=== PATIENT | male | born 1945 | race Caucasian/White ===

== ENCOUNTER → 2016-12-19 | Outpatient (CLI) | payer OTHER ==
[~2016-12-19] MED LIST: ASPI81TA28 PO; DICL-201 PO; FLUT0.0529 NAE; FLUT110A INH; GLIP-199 PO; METF1000 PO; METH5TAB7 PO; OMEP20CA9 PO; TERA5CAP PO
[2016-12-19 10:16] LABS: BASO % 1.2 %; COMPLETE YES; EOS % 5.1 %; HEMATOCRIT 43.7 % (42-52); IG% 0.2 %; LYMPH % 23.3 %; LYMPH ABS # 1.87 K/uL (1.2-3.4); MEAN CELL VOLUME 90.7 fL (80-100); MEAN CORPUSCULAR HEMOGLOBIN 30.9 pg (25-34); MEAN CORPUSCULAR HGB CONC 34.1 g/dl (32-36); MEAN PLATELET VOLUME 11.1 fL (7.4-10.4); MONO % 9.6 %; NEUT % 60.6 %; PLATELET COUNT 238 K/uL (130-400); RED BLOOD COUNT 4.82 M/uL (4.7-6.1); WHITE BLOOD COUNT 8.03 K/uL (4.8-10.8)
[2016-12-19 10:37] LABS: ESTIMATED AVERAGE GLUCOSE 131 mg/dl; HA1C FLAG Normal (Normal)
[2016-12-19 11:23] LABS: ALT/SGPT 29 U/L (12-78); AST/SGOT 18 U/L (15-37); BLOOD UREA NITROGEN 26 mg/dl (7-18); BUN/CREATININE RATIO 15.4 (10-20); CALCIUM 8.7 mg/dl (8.5-10.1); CARBON DIOXIDE 27 mmol/L (21-32); CHLORIDE 103 mmol/L (98-107); CHOLESTEROL 137 mg/dl (0-200); GLUCOSE 96 mg/dl (70-99); MAGNESIUM 2.4 mg/dl (1.8-2.4); POTASSIUM 3.9 mmol/L (3.5-5.1); SODIUM 140 mmol/L (136-145); TRIGLYCERIDES 83 mg/dl (0-150); VERY LOW DENSITY LIPOPROT CALC 17 mg/dl
[2016-12-19 11:27] LABS: CHOLESTEROL/HDL RATIO 3.5; HDL CHOLESTEROL 39 mg/dl; LDL CHOLESTEROL CALCULATED 81 mg/dl
== END | disposition home or self-care (01) ==
LOC: C.LAB1850 09:22
PROVIDERS: ATTEND Internal Medicine
DX: E11.9 Type 2 diabetes mellitus without complications (principal)

== ENCOUNTER → 2016-12-27 | Outpatient (CLI) | payer OTHER ==
[2016-12-27 09:38] LABS: BLOOD UREA NITROGEN 26 mg/dl (7-18); BUN/CREATININE RATIO 18.2 (10-20); CARBON DIOXIDE 28 mmol/L (21-32); CHLORIDE 103 mmol/L (98-107); GLUCOSE 128 mg/dl (70-99); POTASSIUM 3.8 mmol/L (3.5-5.1); SODIUM 141 mmol/L (136-145)
[2016-12-27 10:19] LABS: RATIO 187.5 mcg/mg (0-30.0)
== END | disposition home or self-care (01) ==
LOC: C.LAB1850 08:30
PROVIDERS: ATTEND Internal Medicine
DX: N52.9 Male erectile dysfunction, unspecified (principal)

== ENCOUNTER → 2017-05-30 | Outpatient (CLI) | payer OTHER ==
[2017-05-30 13:19] LABS: ESTIMATED AVERAGE GLUCOSE 134 mg/dl; HA1C FLAG Normal (Normal)
--- NOTE | 2017-06-06 12:07 | CODING QUERY MEDICAL NECESSITY ---
SUPPORTING DIAGNOSIS NEEDED Dr. Vivas, A supporting diagnosis is required for the test/procedure performed on this patient in order for us to be reimbursed by the patient's insurance. Please provide a supporting diagnosis for the following test/procedure listed below next to the test name along with your signature. *If there is no additional diagnosis for this patient that would support the following test/procedure please document that below next to the test/procedure. Test(s)/Procedure(s) that require a supporting diagnosis: * [id number] GLYCATED HEMOGLOBIN DIAGNOSIS: DATE OF SERVICE: 05/30/17 Provider Signature: Date: Thank you Jey Malik [facility] Information Management Once completed, please kindly fax back to [phone] For questions please call [phone]
== END | disposition home or self-care (01) ==
LOC: C.LABPBG 09:09
PROVIDERS: ATTEND Internal Medicine
DX: E78.5 Hyperlipidemia, unspecified (principal); E11.9 Type 2 diabetes mellitus without complications

== ENCOUNTER → 2017-09-04 | Outpatient (CLI) | payer OTHER ==
[2017-09-04 13:19] LABS: BASO % 1.5 %; BASO ABS # 0.11 K/uL (0-0.2); COMPLETE YES; EOS % 5.2 %; HEMATOCRIT 44.1 % (42-52); IG% 0.1 %; LYMPH % 24.6 %; LYMPH ABS # 1.78 K/uL (1.2-3.4); MEAN CELL VOLUME 91.7 fL (80-100); MEAN CORPUSCULAR HEMOGLOBIN 30.6 pg (25-34); MEAN CORPUSCULAR HGB CONC 33.3 g/dl (32-36); MEAN PLATELET VOLUME 11.2 fL (7.4-10.4); MONO % 9.8 %; NEUT % 58.8 %; PLATELET COUNT 253 K/uL (130-400); RED BLOOD COUNT 4.81 M/uL (4.7-6.1); WHITE BLOOD COUNT 7.25 K/uL (4.8-10.8)
[2017-09-04 13:43] LABS: ESTIMATED AVERAGE GLUCOSE 131 mg/dl; HA1C FLAG Normal (Normal)
[2017-09-04 14:56] LABS: ALT/SGPT 30 U/L (12-78); AST/SGOT 20 U/L (15-37); BLOOD UREA NITROGEN 24 mg/dl (7-18); BUN/CREATININE RATIO 17.6 (10-20); CALCIUM 8.7 mg/dl (8.5-10.1); CARBON DIOXIDE 29 mmol/L (21-32); CHLORIDE 104 mmol/L (98-107); CHOLESTEROL 130 mg/dl (0-200); CREATININE 1.35 mg/dl (0.60-1.40); GLUCOSE 90 mg/dl (70-99); POTASSIUM 3.6 mmol/L (3.5-5.1); SODIUM 139 mmol/L (136-145); TRIGLYCERIDES 76 mg/dl (0-150); VERY LOW DENSITY LIPOPROT CALC 15 mg/dl
[2017-09-04 16:43] LABS: HDL CHOLESTEROL 95 mg/dl; LDL CHOLESTEROL CALCULATED 80 mg/dl
[2017-09-04 16:44] LABS: CHOLESTEROL/HDL RATIO 3.7
[2017-09-04 17:58] LABS: CREATININE RANDOM URINE 64.8 mg/dl
[2017-09-04 18:04] LABS: URINE APPEARANCE CLEAR (CLEAR); URINE BILIRUBIN NEG (NEG); URINE COLOR YELLOW; URINE EPITHELIAL CELL AUTO 0-5 /lpf (0-5); URINE NITRITE NEG (NEG); URINE PH 5.5 (4.5-7.5); URINE SPECIFIC GRAVITY 1.014 (1.000-1.030); UROBILINOGEN NEG (NEG)
[2017-09-04 18:06] LABS: MANUAL MICROSCOPIC REQUIRED? NO; REVIEW REQ? NO
[2017-09-04 18:08] LABS: RATIO 384.3 mcg/mg (0-30.0)
== END | disposition home or self-care (01) ==
LOC: C.LABPBG 09:11
PROVIDERS: ATTEND Internal Medicine
DX: E11.9 Type 2 diabetes mellitus without complications (principal)

== ENCOUNTER → 2017-12-14 | Outpatient (CLI) | payer OTHER ==
[2017-12-14 10:43] LABS: BLOOD UREA NITROGEN 29 mg/dl (7-18); CALCIUM 8.8 mg/dl (8.5-10.1); CARBON DIOXIDE 27 mmol/L (21-32); CREATININE 1.68 mg/dl (0.60-1.40); GLUCOSE 130 mg/dl (70-99); POTASSIUM 4.1 mmol/L (3.5-5.1); SODIUM 137 mmol/L (136-145)
[2017-12-14 11:32] LABS: HEMOGLOBIN A1C 6.2 % (4.5-5.6)
== END | disposition home or self-care (01) ==
LOC: C.LAB1850 09:40
PROVIDERS: ATTEND Internal Medicine
DX: I10 Essential (primary) hypertension (principal)

== ENCOUNTER → 2018-03-26 | Outpatient (CLI) | payer OTHER ==
[2018-03-26 13:05] LABS: BASO % 1.1 %; BASO ABS # 0.09 K/uL (0-0.2); EOS % 6.4 %; HEMATOCRIT 40.2 % (42-52); HEMOGLOBIN 13.4 g/dL (14.0-18.0); IG# 0.01 K/uL (0.00-0.02); LYMPH ABS # 1.73 K/uL (1.2-3.4); MEAN CELL VOLUME 93.3 fL (80-100); MEAN CORPUSCULAR HEMOGLOBIN 31.1 pg (25-34); MEAN CORPUSCULAR HGB CONC 33.3 g/dl (32-36); MEAN PLATELET VOLUME 10.9 fL (7.4-10.4); MONO % 7.9 %; MONO ABS # 0.62 K/uL (0.11-0.59); NEUT % 62.5 %; NEUT ABS # 4.91 K/uL (1.4-6.5); PLATELET COUNT 251 K/uL (130-400); RED CELL DISTRIBUTION WIDTH CV 14.1 % (11.5-14.5); RED CELL DISTRIBUTION WIDTH SD 48.8 fL (36.4-46.3); WHITE BLOOD COUNT 7.86 K/uL (4.8-10.8)
[2018-03-26 13:29] LABS: HEMOGLOBIN A1C 5.9 % (4.5-5.6)
[2018-03-26 13:53] LABS: BLOOD UREA NITROGEN 29 mg/dl (7-18); CALCIUM 8.7 mg/dl (8.5-10.1); CARBON DIOXIDE 30 mmol/L (21-32); CHOLESTEROL 126 mg/dl (0-200); CREATININE 1.36 mg/dl (0.60-1.40); GLUCOSE 81 mg/dl (70-99); LDL CHOLESTEROL CALCULATED 75 mg/dl; POTASSIUM 4.1 mmol/L (3.5-5.1); SODIUM 139 mmol/L (136-145)
[2018-03-26 15:44] LABS: CREATININE RANDOM URINE 28.5 mg/dl
== END | disposition home or self-care (01) ==
LOC: C.LABPBG 08:36
PROVIDERS: ATTEND Internal Medicine
DX: E11.9 Type 2 diabetes mellitus without complications (principal)

== ENCOUNTER 2020-08-03 12:33 | Inpatient (IN) ==
[~2020-08-03 12:33] MED LIST changes: -ASPI81TA28 PO; -DICL-201 PO; -FLUT0.0529 NAE; -FLUT110A INH; -GLIP-199 PO; +HEPARIN (PORCINE) 1000 UNIT/ML 10 ML (CATH LAB USE ONLY) ONE; -METF1000 PO; -METH5TAB7 PO; +MIDAZOLAM HCL 1 MG/ML 2ML VIAL ONE; +NiCARDipine HCL INJ 2.5 MG/ML 10 ML AMP ONE; -OMEP20CA9 PO; -TERA5CAP PO; +fentaNYL citrate 100 MCG/2 ML VIAL ONE
[2020-08-03] MEDS ORDERED: NITROGLYCERIN/D5W 100MCG/ML 20ML SYR ONE (12:36)
--- NOTE | 2020-08-03 12:44 | Emergency Department Note ---
Impression & Plan ST elevation AL (STEMI), Chest pain, Abnormal EKG ED Provider Note NAME: STEPHANIE SCHULZ AGE: 74 SEX: M : 1945 ARRIVES VIA: Ambulance INFORMANT: Patient ED PROVIDER(S): Ryland Sheriff DO CHIEF COMPLAINT: Chest pain HPI: Patient is a 74-year-old male who presents the ER for precordial chest pain. He has been getting this off and on for the past 2 to 3 days. He notes it has been gradually getting worse. He is uncertain if it has any association but questions if it is related to drinking. He notes laying down does make him feel better and resting. No vomiting or nausea. No arm or jaw pain. He notes that right now he has a subtle pain left side of his chest as a pressure. He was seen by cardiology earlier today and was referred over as a heart alert. Patient received aspirin and 2 nitro prior to arrival. No previous MIs. ROS: See above HPI for pertinent positives & negatives. A total of 10 systems reviewed and were otherwise negative. PAST MEDICAL HISTORY:See Below PAST SURGICAL HISTORY:See Below FAMILY HISTORY:See Below SOCIAL HISTORY:See Below HOME MEDICATIONS:See Below ALLERGIES:See Below VITALS:See Below PHYSICAL EXAMINATION: GENERAL: Sitting up in bed, alert, well appearing, well nourished, no distress, non-toxic EYE EXAM: normal conjunctiva. OROPHARYNX: no exudate, no erythema, lips, buccal mucosa, and tongue normal and mucous membranes are moist NECK: supple, no nuchal rigidity, no adenopathy, non-tender LUNGS: Clear to auscultation. Normal chest wall mechanics HEART: no murmurs, S1 normal and S2 normal ABDOMEN: abdomen soft, non-tender, normo-active bowel sounds, no masses, no rebound or guarding. BACK: Back is symmetrical on inspection and there is no deformity, no midline tenderness, no CVA tenderness. SKIN: no rashes and no bruising UPPER EXTREMITIES: upper extremities are grossly normal. LOWER EXTREMITIES: No pitting edema. Calves are equal bilateral NEURO EXAM: Normal sensorium, cranial nerves II-XII grossly intact, normal speech, no gross weakness of arms, no gross weakness of legs. MEDICAL DECISION MAKING: Patient is a 74-year-old male who presents the ER for chest pain. He was referred over by Dr. Costa. EKG was reviewed by myself. I took medical command call. EKG showed a STEMI. STEMI alert was called. Patient was seen in the trauma bay. IV was established blood work was obtained. Labs showed no significant leukocytosis or anemia. INR was unremarkable. BMP was unremarkable with exception of slightly elevated creatinine at 1.46. Troponin was elevated at 3.1. Lipase was unremarkable. Dr. Rowan was at bedside. He requested holding on the chest x-ray and taking him emergently to the Nuclear Physicist. Patient was updated and taken emergently to the Nuclear Physicist for intervention. Patient had received aspirin and nitro prior to arrival. Triage Nursing notes reviewed. Prior medical records reviewed Vital Signs: reviewed and remarkable for no significant abnormalities Differential diagnosis: Differential diagnoses includes but is not limited to acute coronary syndrome, myocardial infarction, pericarditis, pulmonary embolus, aortic dissection, pneumonia, pneumothorax, musculoskeletal, shingles, esophageal. ER treatment provided: See below Diagnostics interpreted by me: ECG: Sinus rhythm rate 83 Normal axis Q waves V1 through V4 with ST segment elevations in V2 to V5 Acute STEMI ST depressions in the inferior leads ST elevations in the high lateral leads Cardiac Monitoring: An order was placed for continuous cardiac monitoring. The monitor shows a rate of 74 with sinus rhythm. Laboratory studies: As stated above and show below. Imaging studies: none Consultation(s): Discussed with Dr. Rowan who presented to bedside and took him to the Nuclear Physicist. ED COURSE: Procedures: none Critical Care: I have personally spent 31 minutes of critical care time in the direct management of this patient. This includes bedside care, interpretation of diagnostic studies, and testing, discussion with consultants, patient, and family members, and other required patient management activities. This 31 minutes is in excess of all separately billable procedures. Past Med/Surg History Medical History (Updated 08/03/20 @ 19:12 by Ryland Sheriff DO) Anemia HLD (hyperlipidemia) Olecranon bursitis MAURICIO on CPAP Social History Smoking Status: Former smoker Hx Alcohol Use: Yes Alcohol type: beer Hx Substance Use: No Preferred Language: Albanian Communication Ability: Effective Parts And Service Manager Required: No Beliefs That Will Affect Care: None Current Living Situation: Spouse Other Information That Helps Us Care for You: No Feels Safe at Home: Yes Safety Concerns: Feels Safe At This Time Assistive Devices: CPAP, Glasses and Hearing Aid - Right Allergies Allergies Allergy/AdvReac Type Severity Reaction Status Date / Time No Known Allergies Allergy NONE Verified 08/03/20 11:13 Home Meds Home Medications Medication Instructions Recorded Confirmed omeprazole 20 mg capsule,delayed 20 mg PO DAILY 08/03/20 08/03/20 release Previous Rx's Medication Instructions Recorded sildenafil (pulm.hypertension) 20 20 mg PO Q4H #20 tab MDD 5 tablets 06/03/19 mg tablet fluticasone propionate 110 2 puffs INHALATION DAILY #3 gm 11/27/19 mcg/actuation HFA aerosol inhaler fluticasone propionate 50 2 sprays INTRANASAL DAILY #3 gm 11/27/19 mcg/actuation nasal spray,suspension hydrochlorothiazide 25 mg tablet 25 mg PO DAILY #90 tab 11/27/19 losartan 50 mg tablet 50 mg PO DAILY #90 tab 11/27/19 terazosin 5 mg capsule 5 mg PO DAILY #90 cap 01/16/20 diclofenac sodium 75 mg 75 mg PO BID #180 tab 04/06/20 tablet,delayed release glipizide 10 mg tablet, extended 10 mg PO BID #180 tab 04/06/20 release 24 hr Results & Data (ED) Vital Signs Vital Signs - 24 hr 08/03/20 12:35 Temperature 36.6 C Temperature Source Oral Pulse Rate 81 Respiratory Rate 20 Blood Pressure 142/82 H Blood Pressure Mean 102 Pulse Oximetry 97 Oxygen Delivery Method Room Air Sepsis Recent Fever Within 48 Hours No Sepsis New/Unexplained Change in Mental Status N/A Sepsis Action Taken by Nursing No Action Required Laboratory Data Result diagrams: 08/03/20 12:34 08/03/20 12:34 Lab Results 08/03/20 08/03/20 08/03/20 Range/Units 12:34 12:34 12:34 WBC 10.25 (4.8-10.8) K/uL RBC 4.60 L (4.7-6.1) M/uL Hgb 14.2 (14.0-18.0) g/dL POC Hgb (14.0-18.0) g/dl Hct 42.4 (42-52) % POC Hct (42-52) % MCV 92.2 (80-100) fL MCH 30.9 (25-34) pg MCHC 33.5 (32-36) g/dL RDW Std Deviation 46.0 (36.4-46.3) fL RDW Coeff of Chai 13.6 (11.5-14.5) % Plt Count 228 (130-400) K/uL MPV 11.2 H (7.4-10.4) fL Immature Gran % (Auto) 0.1 % Neut % (Auto) 80.6 % Lymph % (Auto) 12.4 % Harlan % (Auto) 5.8 % Eos % (Auto) 0.7 % Baso % (Auto) 0.4 % Neut # (Auto) 8.27 H (1.4-6.5) K/uL Lymph # (Auto) 1.27 (1.2-3.4) K/uL Harlan # (Auto) 0.59 (0.11-0.59) K/uL Eos # (Auto) 0.07 (0-0.5) K/uL Baso # (Auto) 0.04 (0-0.2) K/uL Immature Gran # (Auto) 0.01 (0.00-0.02) K/uL PT 11.1 (9.0-12.0) Seconds INR 1.1 (0.9-1.1) APTT 26.6 (21.0-31.0) Seconds PTT Ratio 1.0 Activ Coag Time Kaolin (94-140) SECONDS POC Sodium (135-144) mmol/L Sodium 138 (136-145) mmol/L POC Potassium (3.3-5.0) mmol/L Potassium 3.8 (3.5-5.1) mmol/L POC Chloride (101-112) mmol/L Chloride 107 (98-107) mmol/L Carbon Dioxide 21 (21-32) mmol/L POC Total CO2 (24-31) mmol/L Anion Gap 11.0 (3-11) POC Anion Gap (16-25) mmol/L POC BUN (7-18) mg/dl BUN 27 H (7-18) mg/dl Creatinine 1.46 H (0.6-1.4) mg/dl POC Creatinine (0.6-1.3) mg/dl Est Cr Clr Drug Dosing 58.4 ml/min Est GFR ( Amer) 53.4 Est GFR (Non-Af Amer) 46.1 BUN/Creatinine Ratio 18.3 (10-20) Glucose 147 H (70-99) mg/dl POC Glucose (other) (70-99) mg/dl Calcium 9.5 (8.5-10.1) mg/dl POC Ioniz Calcium Yomaira (1.12-1.32) mmol/l Magnesium 2.2 (1.8-2.4) mg/dl Total Bilirubin 0.7 (0.2-1) mg/dl AST 49 H (15-37) U/L ALT 30 (12-78) U/L Alkaline Phosphatase 78 (45-117) U/L Total Creatine Kinase 342 H (39-308) U/L CK-MB (CK-2) 25.9 H (0.5-3.6) ng/ml CK/CKMB % Calc 7.6 H (0-3.0) Troponin I 3.120 H* (0-0.045) ng/ml Total Protein 7.4 (6.4-8.2) gm/dl Albumin 3.6 (3.4-5.0) gm/dl Globulin 3.8 (2.5-4.0) gm/dl Albumin/Globulin Ratio 0.9 (0.9-2) Lipase 89 (73-393) U/L TSH 1.510 (0.300-4.500) uIu/ml 08/03/20 08/03/20 08/03/20 Range/Units 12:44 13:11 13:29 WBC (4.8-10.8) K/uL RBC (4.7-6.1) M/uL Hgb (14.0-18.0) g/dL POC Hgb 15.0 (14.0-18.0) g/dl Hct (42-52) % POC Hct 44 (42-52) % MCV (80-100) fL MCH (25-34) pg MCHC (32-36) g/dL RDW Std Deviation (36.4-46.3) fL RDW Coeff of Chai (11.5-14.5) % Plt Count (130-400) K/uL MPV (7.4-10.4) fL Immature Gran % (Auto) % Neut % (Auto) % Lymph % (Auto) % Harlan % (Auto) % Eos % (Auto) % Baso % (Auto) % Neut # (Auto) (1.4-6.5) K/uL Lymph # (Auto) (1.2-3.4) K/uL Harlan # (Auto) (0.11-0.59) K/uL Eos # (Auto) (0-0.5) K/uL Baso # (Auto) (0-0.2) K/uL Immature Gran # (Auto) (0.00-0.02) K/uL PT (9.0-12.0) Seconds INR (0.9-1.1) APTT (21.0-31.0) Seconds PTT Ratio Activ Coag Time Kaolin 208 H 230 H (94-140) SECONDS POC Sodium 139 (135-144) mmol/L Sodium (136-145) mmol/L POC Potassium 3.9 (3.3-5.0) mmol/L Potassium (3.5-5.1) mmol/L POC Chloride 105 (101-112) mmol/L Chloride (98-107) mmol/L Carbon Dioxide (21-32) mmol/L POC Total CO2 21 L (24-31) mmol/L Anion Gap (3-11) POC Anion Gap 18.0 (16-25) mmol/L POC BUN 26 H (7-18) mg/dl BUN (7-18) mg/dl Creatinine (0.6-1.4) mg/dl POC Creatinine 1.4 H (0.6-1.3) mg/dl Est Cr Clr Drug Dosing ml/min Est GFR ( Amer) Est GFR (Non-Af Amer) BUN/Creatinine Ratio (10-20) Glucose (70-99) mg/dl POC Glucose (other) 151 H (70-99) mg/dl Calcium (8.5-10.1) mg/dl POC Ioniz Calcium Yomaira 1.12 (1.12-1.32) mmol/l Magnesium (1.8-2.4) mg/dl Total Bilirubin (0.2-1) mg/dl AST (15-37) U/L ALT (12-78) U/L Alkaline Phosphatase (45-117) U/L Total Creatine Kinase (39-308) U/L CK-MB (CK-2) (0.5-3.6) ng/ml CK/CKMB % Calc (0-3.0) Troponin I (0-0.045) ng/ml Total Protein (6.4-8.2) gm/dl Albumin (3.4-5.0) gm/dl Globulin (2.5-4.0) gm/dl Albumin/Globulin Ratio (0.9-2) Lipase (73-393) U/L TSH (0.300-4.500) uIu/ml 08/03/20 Range/Units 14:08 WBC (4.8-10.8) K/uL RBC (4.7-6.1) M/uL Hgb (14.0-18.0) g/dL POC Hgb (14.0-18.0) g/dl Hct (42-52) % POC Hct (42-52) % MCV (80-100) fL MCH (25-34) pg MCHC (32-36) g/dL RDW Std Deviation (36.4-46.3) fL RDW Coeff of Chai (11.5-14.5) % Plt Count (130-400) K/uL MPV (7.4-10.4) fL Immature Gran % (Auto) % Neut % (Auto) % Lymph % (Auto) % Harlan % (Auto) % Eos % (Auto) % Baso % (Auto) % Neut # (Auto) (1.4-6.5) K/uL Lymph # (Auto) (1.2-3.4) K/uL Harlan # (Auto) (0.11-0.59) K/uL Eos # (Auto) (0-0.5) K/uL Baso # (Auto) (0-0.2) K/uL Immature Gran # (Auto) (0.00-0.02) K/uL PT (9.0-12.0) Seconds INR (0.9-1.1) APTT (21.0-31.0) Seconds PTT Ratio Activ Coag Time Kaolin 268 H (94-140) SECONDS POC Sodium (135-144) mmol/L Sodium (136-145) mmol/L POC Potassium (3.3-5.0) mmol/L Potassium (3.5-5.1) mmol/L POC Chloride (101-112) mmol/L Chloride (98-107) mmol/L Carbon Dioxide (21-32) mmol/L POC Total CO2 (24-31) mmol/L Anion Gap (3-11) POC Anion Gap (16-25) mmol/L POC BUN (7-18) mg/dl BUN (7-18) mg/dl Creatinine (0.6-1.4) mg/dl POC Creatinine (0.6-1.3) mg/dl Est Cr Clr Drug Dosing ml/min Est GFR ( Amer) Est GFR (Non-Af Amer) BUN/Creatinine Ratio (10-20) Glucose (70-99) mg/dl POC Glucose (other) (70-99) mg/dl Calcium (8.5-10.1) mg/dl POC Ioniz Calcium Yomaira (1.12-1.32) mmol/l Magnesium (1.8-2.4) mg/dl Total Bilirubin (0.2-1) mg/dl AST (15-37) U/L ALT (12-78) U/L Alkaline Phosphatase (45-117) U/L Total Creatine Kinase (39-308) U/L CK-MB (CK-2) (0.5-3.6) ng/ml CK/CKMB % Calc (0-3.0) Troponin I (0-0.045) ng/ml Total Protein (6.4-8.2) gm/dl Albumin (3.4-5.0) gm/dl Globulin (2.5-4.0) gm/dl Albumin/Globulin Ratio (0.9-2) Lipase (73-393) U/L TSH (0.300-4.500) uIu/ml Administered Medications Sodium Chloride (Nss 1000ml) 1,000 mls @ 100 mls/hr IV .Q10H [facility] Stop: 09/02/20 14:44 Last Infusion: 08/03/20 18:58 Dose: 100 mls/hr Documented by: [id number] Admin: 08/03/20 16:01 Dose: 100 mls/hr Documented by: [id number] Admin: 08/03/20 15:59 Dose: Not Given Documented by: [id number] Eptifibatide (Integrilin) 75 mg in 100 mls @ 10.16 mls/hr IV .[id number] SARAH; Protocol Stop: 08/03/20 20:30 Last Infusion: 08/03/20 18:58 Dose: 1 mcg/kg/min, 10.2 mls/hr Documented by: [id number] Cosigned by: [id number] Admin: 08/03/20 16:03 Dose: 1 mcg/kg/min, 10.2 mls/hr Documented by: [id number] Cosigned by: [id number] Insulin Aspart (Insulin Aspart 100 Units/Ml 3 Ml Pen) 0 units SC ACHS SARAH Stop: 09/02/20 16:29 Last Admin: 08/03/20 16:28 Dose: 300 units Documented by: [id number] Cosigned by: [id number] Discontinued Medications Eptifibatide (Eptifibatide 2 Mg/Ml 10 Ml Vial (Nuclear Physicist Use Only)) Confirm Administered Dose 40 mg IV .STK-MED ONE Stop: 08/03/20 13:45 Last Admin: 08/03/20 14:15 Dose: 40 mg Documented by: [id number] Eptifibatide (Eptifibatide 0.75 Mg/Ml 75mg Vial (Nuclear Physicist Use Only)) Confirm Administered Dose 75 mg .ROUTE .STK-MED ONE Stop: 08/03/20 13:45 Last Admin: 08/03/20 14:15 Dose: 75 mg Documented by: [id number] Eptifibatide (Eptifibatide 2 Mg/Ml 10 Ml Vial (Nuclear Physicist Use Only)) Confirm Administered Dose 20 mg IV .STK-MED ONE Stop: 08/03/20 13:48 Last Admin: 08/03/20 14:16 Dose: Not Given Documented by: [id number] Fentanyl Citrate (Fentanyl Citrate 100 Mcg/2 Ml Vial) Confirm Administered Dose 100 mcg .ROUTE .STK-MED ONE Stop: 08/03/20 12:34 Last Admin: 08/03/20 14:14 Dose: 100 mcg Documented by: [id number] Fentanyl Citrate (Fentanyl Citrate 100 Mcg/2 Ml Vial) Confirm Administered Dose 100 mcg .ROUTE .STK-MED ONE Stop: 08/03/20 13:18 Last Admin: 08/03/20 14:16 Dose: 50 mcg Documented by: [id number] Heparin Sodium (Porcine) (Heparin (Porcine) 1000 Unit/Ml 10 Ml (Nuclear Physicist Use Only)) Confirm Administered Dose 10,000 units .ROUTE .STK-MED ONE Stop: 08/03/20 12:34 Last Admin: 08/03/20 14:16 Dose: 7,000 units Documented by: [id number] Heparin Sodium (Porcine) (Heparin (Porcine) 1000 Unit/Ml 10 Ml (Nuclear Physicist Use Only)) Confirm Administered Dose 10,000 units .ROUTE .STK-MED ONE Stop: 08/03/20 13:16 Last Admin: 08/03/20 14:14 Dose: 10,000 units Documented by: [id number] Heparin Sodium/Sodium Chloride (Heparin In Nss Infusion 1000 Unit/500 Ml (2 U/Ml) Bag) Confirm Administered Dose 5,000 units IV .STK-MED ONE Stop: 08/03/20 12:34 Last Admin: 08/03/20 14:12 Dose: 5,000 units Documented by: [id number] Midazolam HCl (Midazolam Hcl 1 Mg/Ml 2ml Vial) Confirm Administered Dose 2 mg .ROUTE .STK-MED ONE Stop: 08/03/20 12:34 Last Admin: 08/03/20 14:14 Dose: 2 mg Documented by: [id number] Midazolam HCl (Midazolam Hcl 1 Mg/Ml 2ml Vial) Confirm Administered Dose 2 mg .ROUTE .STK-MED ONE Stop: 08/03/20 13:19 Last Admin: 08/03/20 14:15 Dose: 2 mg Documented by: [id number] Midazolam HCl (Midazolam Hcl 1 Mg/Ml 2ml Vial) Confirm Administered Dose 2 mg .ROUTE .STK-MED ONE Stop: 08/03/20 13:41 Last Admin: 08/03/20 14:16 Dose: 1 mg Documented by: [id number] Nicardipine HCl (Nicardipine Hcl Inj 2.5 Mg/Ml 10 Ml Amp) Confirm Administered Dose 25 mg .ROUTE .STK-MED ONE Stop: 08/03/20 12:34 Last Admin: 08/03/20 14:11 Dose: 25 mg Documented by: [id number] Nitroglycerin/Dextrose (Nitroglycerin/D5w 100mcg/Ml 20ml Syr) Confirm Administered Dose 2,000 mcg .ROUTE .STK-MED ONE Stop: 08/03/20 12:37 Last Admin: 08/03/20 14:12 Dose: 2,000 mcg Documented by: [id number] Ticagrelor (Ticagrelor 90 Mg Tab) Confirm Administered Dose 180 mg PO .STK-MED ONE Stop: 08/03/20 14:31 Last Admin: 08/03/20 14:38 Dose: 180 mg Documented by: [id number] Discharge Plan Visit Data Chief Complaint: Heart Alert Stated Complaint: HEART ALERT ED Provider: Ryland Sheriff Discharge Problem: ST elevation AL (STEMI), Chest pain, Abnormal EKG Discharge Instructions Interventions: ED Discharge Assessment Last Done: 08/03/20 12:47 Discharge Problem: ST elevation AL (STEMI) Qualifiers: Involved coronary artery: unspecified coronary artery Qualified Code(s): I21.3 - ST elevation (STEMI) myocardial infarction of unspecified site Chest pain Qualifiers: Chest pain type: unspecified Qualified Code(s): R07.9 - Chest pain, unspecified
--- NOTE | 2020-08-03 12:45 | Pre Anesthesia Assessment ---
Date of Service August 03, 2020 Pre Sedation Assessment Cardiovascular RRR, no murmur, no edema Respiratory normal respiratory effort, lungs clear to auscultation Pre-Sedation Airway Assessment Smoking Status: Unknown if ever smoked Hx Sleep Apnea: No Hx Difficult Intubation: No Short, Thick Neck: No Thyromental Distance: > or= 3.5 Finger Breadths Oral Cavity: + Dental Abnormalities Mallampati Class: III ASA: ASA3 Procedure Planning Contraindications for Sedation: none Current Medications Reviewed: Yes Notes The planned sedation has been discussed with the patient. Informed Consent was obtained. I have identified the patient, determined the appropriateness of sedation and have assessed the patient immediately prior to the procedure. All medicine(s) and interventions are by my order.
[2020-08-03 12:52] LABS: Basophils # (auto) 0.04 K/uL (0-0.2); Basophils % (auto) 0.4 %; Eosinophils # (auto) 0.07 K/uL (0-0.5); Eosinophils % (auto) 0.7 %; Hematocrit (blood only) 42.4 % (42-52); Hemoglobin 14.2 g/dL (14.0-18.0); Immature Granulocytes # (auto) 0.01 K/uL (0.00-0.02); Immature Granulocytes % (auto) 0.1 %; Lymphocytes # (auto) 1.27 K/uL (1.2-3.4); Lymphocytes % (auto) 12.4 %; Mean Corpuscular Hemoglobin 30.9 pg (25-34); Mean Corpuscular Hgb Conc 33.5 g/dL (32-36); Mean Corpuscular Volume 92.2 fL (80-100); Mean Platelet Volume 11.2 fL (7.4-10.4); Monocytes # (auto) 0.59 K/uL (0.11-0.59); Monocytes % (auto) 5.8 %; Neutrophils # (auto) 8.27 K/uL (1.4-6.5); Neutrophils % (auto) 80.6 %; Platelet Count 228 K/uL (130-400); RDW Coefficient of Variation 13.6 % (11.5-14.5); White Blood Count 10.25 K/uL (4.8-10.8)
--- NOTE | 2020-08-03 12:52 | Cardiology Consultation ---
Date of Consultation August 03, 2020 Assessment & Plan (1) Acute NE: Presentation consistent with anterior STEMI and recommend proceeding with emergent cardiac catheterization and likely primary PCI. No apparent contraindications to procedure. Discussed risks, benefits, alternatives of procedure with patient and they are willing to proceed. Further recommendations pending findings of coronary angiography. History of Present Illness History of Present Illness 74-year-old man here with acute chest pain and ECG concerning for acute NE. Patient seen emergently in the ED after heart alert activated in route from [facility] office. No prior cardiac history. Cardiac risk factors include hypertension, dyslipidemia, morbid obesity, dxn-[id number] type 2 diabetes. Other medical issues include chronic renal insufficiency stage III, obstructive sleep apnea, osteoarthritis. Has been having intermittent chest pain since yesterday which initially attributed to GERD. Due to pain presented to his primary care physician, Dr. Vivas earlier today. ECG in office notable for 2 to [address] elevations. Denies similar symptoms in the past. Associated with mild nausea, diaphoresis. Given sublingual nitroglycerin, aspirin in route Chest pain at time of arrival 02/13. Hemodynamically stable. EKG showed anterior ST elevations. Allergies Allergy/AdvReac Type Severity Reaction Status Date / Time No Known Allergies Allergy NONE Verified 08/03/20 11:13 Home Medications Home Medications Medication Instructions Recorded Confirmed Type sildenafil (pulm.hypertension) 20 20 mg PO Q4H #20 tab MDD 5 tablets 06/03/19 12/19/19 Rx mg tablet fluticasone propionate 110 2 puffs INHALATION DAILY #3 gm 11/27/19 07/03/20 Rx mcg/actuation HFA aerosol inhaler fluticasone propionate 50 2 sprays INTRANASAL DAILY #3 gm 11/27/19 07/03/20 Rx mcg/actuation nasal spray,suspension hydrochlorothiazide 25 mg tablet 25 mg PO DAILY #90 tab 11/27/19 07/03/20 Rx losartan 50 mg tablet 50 mg PO DAILY #90 tab 11/27/19 07/03/20 Rx terazosin 5 mg capsule 5 mg PO DAILY #90 cap 01/16/20 07/03/20 Rx diclofenac sodium 75 mg 75 mg PO BID #180 tab 04/06/20 07/03/20 Rx tablet,delayed release glipizide 10 mg tablet, extended 10 mg PO BID #180 tab 04/06/20 07/03/20 Rx release 24 hr omeprazole 20 mg capsule,delayed 20 mg PO DAILY 08/03/20 08/03/20 History release Patient History Medical History (Updated 08/03/20 @ 14:55 by Aureliano Rowan MD) Anemia Olecranon bursitis Social History Smoking Status: Unknown if ever smoked Feels Safe at Home: Yes Review of Systems Review of Systems: Not obtained in the setting of emergent situation Physical Exam Physical Exam: General: Comfortable, no acute distress HEENT: Sclerae anicteric, mucous membranes moist Lungs: Clear to auscultation bilaterally, no rhonchi or wheezes Cardiac: Regular rate and rhythm, no murmurs. No JVD. Abdomen: Soft, nontender, nondistended, positive bowel sounds. Extremities: Warm, well perfused, no edema. 2+ radial pulses Skin: No rashes or lesions. Neuro: Nonfocal Psych: Alert orient x3, normal affect and mood PG Care Time/CCT Total # of Minutes Spent Total Time Spent with Patient: Total time spent is greater than 50% in coordination of care (as documented) at patient's floor/unit and/or counseling patient: Coding Level of Care Code 47372 Initial Inpt Care Lvl 3 Diagnoses Acute NE I21.9
[2020-08-03 12:58] LABS: iSTAT Creatinine 1.4 mg/dl (0.6-1.3); iSTAT Ionized Calcium 1.12 mmol/l (1.12-1.32); iSTAT Potassium 3.9 mmol/L (3.3-5.0)
[2020-08-03 13:03] LABS: INR 1.1 (0.9-1.1); Partial Thromboplastin Time 26.6 Seconds (21.0-31.0); Prothrombin Time 11.1 Seconds (9.0-12.0)
[2020-08-03 13:09] LABS: Albumin Level 3.6 gm/dl (3.4-5.0); BUN Creatinine Ratio 18.3 (10-20); Calcium 9.5 mg/dl (8.5-10.1); Creatinine Clr Calc Pharmacy 58.4 ml/min; Est GFR (African American) 53.4; Est GFR (Non-African American) 46.1; Magnesium 2.2 mg/dl (1.8-2.4); Potassium 3.8 mmol/L (3.5-5.1)
[2020-08-03] MEDS ORDERED: HEPARIN (PORCINE) 1000 UNIT/ML 10 ML (CATH LAB USE ONLY) ONE (13:15)
[2020-08-03] MEDS ORDERED: fentaNYL citrate 100 MCG/2 ML VIAL ONE (13:17)
[2020-08-03] MEDS ORDERED: MIDAZOLAM HCL 1 MG/ML 2ML VIAL ONE ×2 (13:18→13:40)
[2020-08-03 13:22] LABS: Albumin Globulin Ratio 0.9 (0.9-2); Bilirubin,Total 0.7 mg/dl (0.2-1); Creatine Kinase MB 25.9 ng/ml (0.5-3.6); Globulin 3.8 gm/dl (2.5-4.0); Thyroid Stimulating Hormone 1.51 uIu/ml (0.300-4.500); Total Protein 7.4 gm/dl (6.4-8.2); Troponin I 3.12 ng/ml (0-0.045)
[2020-08-03] MEDS ORDERED: EPTIFIBATIDE 0.75 MG/ML 75MG VIAL (CATH LAB USE ONLY) ONE (13:44)
[2020-08-03] MEDS ORDERED: EPTIFIBATIDE 2 MG/ML 10 ML VIAL (CATH LAB USE ONLY) IV ONE ×2 (13:44→13:47)
[2020-08-03] MEDS ORDERED: TICAGRELOR 90 MG TAB PO ONE (14:30)
[2020-08-03] MEDS ORDERED: ONDANSETRON INJ 2 MG/ML 2 ML VIAL IV PRN (14:45)
[2020-08-03] MEDS ORDERED: EPTIFIBATIDE BOLUS/DRIP IV STA (14:45)
[2020-08-03] MEDS ORDERED: NITROGLYCERIN SL 0.4 MG/TAB TAB SL PRN (14:45)
[2020-08-03] MEDS ORDERED: ACETAMINOPHEN 325 MG TAB PO PRN (14:45)
--- NOTE | 2020-08-03 14:54 | Post Anesthesia Assessment ---
Date of Service August 03, 2020 Post Sedation Assessment Vital Signs Temp Pulse Pulse Resp BP BP Pulse Ox 08/03/20 14:44 50 L 16 116/65 93 08/03/20 14:30 55 L 16 117/68 95 08/03/20 12:35 97.9 F 81 20 142/82 H 97 Recovery Score Activity: Moves 4 extremities Respiration: Deep Breath/Cough Circulation: +/-20% PreAnes Value Consciousness: Fully Awake Oxygen Saturation: > 92% On Room Air Post Anesthesia Score: 10 Discharge Sedation Level of Care: Fast Track Phase II Post Sedation Plan On clinical assessment, the patient appears to have tolerated the sedation without complications. Patient is recovering as anticipated. Patient will continue to be monitored by nursing and may be discharged when sedation discharge criteria are met per below protocol. Upon Completions of procedure up to 15 minutes continue every 5 minute vital signs and the P.A.R. score; then discharge to a Phase I or Fast Track to Phase II per the following guidelines: * Discharge Patient to appropriate Phase II area if PAR is 8 or greater or return to pre- procedure baseline. The post - procedure orders will be as directed. * If PAR score is less than 8 or not return to pre-procedure baseline then patient will follow Phase I monitoring till PAR is reached for Phase II. The Phase I may be done in procedure room or may call to secure a Phase I area. * If naloxone or flumazenil are used for reversal, hold in Phase I for continued monitoring from when last reversal dose was given for a minimum of 60 minutes or longer pending the nurse and/or physician discretion of patient condition before discharge to Phase II. Please call the Sedation Physician to re-evaluate and complete post-note for discharge to Phase II area. Do NOT discharge from procedure sedation or Phase 1 until post- sedation evaluation note is complete by procedure /sedation MD Sedation Discharge Instructions to be given to the patient at discharge to home.
--- NOTE | 2020-08-03 15:03 | Cardiac Catheterization ---
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: Blue Prints Trimmer Cardiac Status Clinical evaluation leading to the procedure CAD Presenation: STEMI Anginal Classification: CCS IV Cardiogenic Shock within 24 Hours: No Cardiac Arrest within 24 Hours: No Imaging Studies Past 6 Months: No Stress Studies Past 6 Months: No Diagnostic Physicians Name: Ayan Rowan MD Status: Emergency Closure Device Percutaneous Entry Location: Radial Closure Device: Radial Band Recommendations: PCI without planned CABG PCI Indication: Immediate PCI for STEMI First Noted: First EKG Lesion Segment Name: mid LAD Culprit Artery: Yes Stenosis Prior to Rx (%): 100 Chronic Total Occlusion: No IVUS: Yes FFR: No Pre-Procedure SHIRA Flow: 0 Previously Treated Lesion: No Lesion Complexity: High/C Lesion Length (mm): 35 Thrombus Present: Yes Bifurcation Lesion: Yes Guidewire Across Lesion: Stenosis Post-Procedure (%): 0 Post-Procedure SHIRA Flow: 3 Devices(s) Deployed: Yes Yes Intraprocedure Events Significant Disection: No Perforation: No Cardiac Cath Procedure Full Procedure Date August 03, 2020 Pre-Procedure Diagnosis Pre-Procedure Diagnosis: STEMI AUC Score AUC Score: 9 Post-Procedure Diagnosis Post-Procedure Diagnosis: Severe CAD, Successful PCI and Elevated Intracardiac Pressures Procedure(s) Performed Procedure(s) Performed: Coronary Angiography, Left Heart Cath, Drug Eluting Stent and IVUS Tool Maker Apprentice Ayan Rowan MD Golf Ball Cover Treater(s) Padma Estimated Blood Loss Estimated Blood Loss: 20 Summary of Findings Indication: STEMI/Heart Alert Access: 6 Fr slender right radial artery Catheters: EBU 3.75 guide Findings: LM -large caliber, luminal irregularities LAD -large caliber, proximal irregularities, 100% acute mid occlusion at takeoff of first septal Circumflex -large caliber, 20 to 30% proximal disease, OM 2 with 90% ostial sten osis. Distal circumflex with 40% stenosis. RCA -dominant, large caliber, 20 to 30% proximal, mid-distal segments with luminal irregularities LVEDP -26 -- PCI -- Antithrombotic therapy: Heparin, ticagrelor, Integrilin Procedure: Left main cannulated with EBU 3.75 guide Fermenting Cellars Supervisor 50 wire passed across occlusion Occlusion pre-dilated with 2.5 balloon. Second jet pilot 50 wire placed into 2nd diagonal [place] IVUS used to assess extent of disease in LAD and for vessel sizing. Diffuse proximal to mid LAD disease noted. Severe stenosis with thrombus at take-off of 1st septal. Early mid-LAD stented with 3.0 x 38 mm Min CLARIBEL Attempted to rewire into second diagonal but ended up in diagonal dissection plane LAD stent postdilated with 4.0 NC After post dilation no reflow in distal LAD LAD just after stent dilated with 2.5 balloon and stented with 2.5 x 18 mm [place] IC vasodilators administered. Started on IC/IV Integrilin Still with SHIRA I-II flow distally. Latemid LAD noted to have 70% stenosis Latemid LAD stented with 2.25 x 15 mm Min (nonoverlapping). IC vasodilators readministered Repeat RUDDY showed well apposed, well-expanded stents. No edge complications. Mild to moderate distal disease. Post procedure angiography revealed SHIRA-3 flow after additional IC vasodilators Arterial Closure: TR band Summary: 1. Anterior STEMI/100% mid LAD occlusion -Mid to distal LAD with moderate diffuse disease 2. Severe non-culprit coronary artery disease -90% ostial OM 2 3. Elevated intracardiac filling pressure 4. Successful PCI of mid LAD occlusion with 2 overlapping drug-eluting stents (3.0 x 38, 2.5 x 18 mm Min; postdilated with 4.5 NC) and a third nonoverlapping stent to latemid LAD stenosis (2.25 x 15 mm Min). Recommendations: Admit to ICU for continued monitoring Loaded with ticagrelor 180 mg in wastewater analyst lab analyst Continue Integrilin for 6 hours Continue dual-antiplatelet therapy for at least 1 year. Trend troponins until peak, Check Echo Uptitrate beta-elva/CELESTINO as BP allows High-dose statin Consult cardiac Rehab Hemodynamics Rest Ao:: 108/61/93 Final Ao: 106/46/69 LV: 93/26 Recommendations Recommendations: PCI without planned CABG Specimens Specimens: None Radiation Exposure (mGy) 5739 Contrast (mls) 195 Fluids (cc crystalloids) Fluids (cc crystalloids): 650 Drains Drains: none Anesthesia moderate Procedural Complication(s) None Disposition ICU I attest to the content of the Intraoperative Record and any orders documented therein. Any exceptions are noted below. Audience.fmG Card Cath Procedure Codes Cardiac Catheterization Procedure 1: Cardiovascular Cath Procedures: 71525 Left Heart Cath (+/-LV) Therapeutic Services & Ancillary Proc Procedure 1: Cardiovascular Tx and Anc Procedures: 37199 IV Ultrasound (Coronary or Graft) Moderate Sedation Procedure 1: Sedation/Anesthesia: 35873 Mod Sedation by the same physician;Init15 Min Child Age 5 & Up Procedure 2: Sedation/Anesthesia: 37176 Mod Sedation by the same physician; Ea [id number] Minutes Stenting Procedure 1: Cardiovascular Stent Procedures: 00769 Perc transluminal revascularization of acute sub/total occl, aMI PG Care Time/CCT Total # of Minutes Spent Total Time Spent with Patient: Total time spent is greater than 50% in coordination of care (as documented) at patient's floor/unit and/or counseling patient:
--- NOTE | 2020-08-03 15:33 | Critical Care Consultation ---
Date of Consultation August 03, 2020 Assessment & Plan (1) Acute [place]: Reason Critically Ill: 74M with acute STEMI s/p stent x3 of LAD NEURO: CAM ICU:Negative -No concerns at this time. CARDIAC: -ST Elevations V2-V5 noted on EKG in PCP's office -Patient underwent PCI of LAD x3 with Dr. Rowan by R radial approach -Was loaded with Ticagrelor 180mg in clinical laboratory assistant -Continue Integrilin x6 hours -Continue ASA 81mg and Ticagrelor 90mg BID -Continue Metoprolol tartrate 25mg BID, Losartan 25mg QD -Trend troponin until peak, initial trop 3.12 -Echo pending -High dose statin -A1c and Lipid profile in AM RESPIRATORY: -MAURICIO, allow home cpap -Continue Fluticasone for asthma -Continue Flonase GI: -Continue Protonix 40mg qAM RENAL/LYTES: -CKD stage III creatine ~1.4, at baseline -Monitor BMP : -Hold Terazosin ENDO: -Hold Glipizide -SSI HEME: -Monitor CBC and troponin ID: -No concerns at this time LINES/IV ACCESS: L antecubital, R forearm CODE STATUS: Full DVT PROPHYLAXIS: Held Thank you for allowing us to participate in the care of this patient. Please refer to my attending physician's documentation for any further recommendations. (2) Atypical chest pain: Supervising Physician Co-Signing Physician Notes Patient seen and examined with the family service assistant, Dr. Lew. I agree with his assessment and plan aside for any additions/exceptions noted: Patient status post STEMI with PCI x3 to the LAD. Patient feeling much better. He still has some mild chest pain which she attributes to GERD. Will need a PPI. Continue post STEMI care including high-dose statin, beta-elva, lisinopril, dual antiplatelet therapy. Currently completing Integrilin infusion due to high-grade lesion. Will need cardiac rehab upon discharge. Patient will likely be able to be transferred to the floor tomorrow. History of Present Illness Reason for Consultation: Care Post-op LAD stent x3 Requesting Physician: Dr. Rowan Attending Physician: Ayan Rowan MD History of Present Illness Patient is a 74 year old male that presented from his PCPs office with atypical chest pain x3 days found to have a STEMI on in office EKG and underwent PCI of LAD x3 stents. Patient notes that for the past 3 days he had been having on and off chest pain that he described as "chest tightness in the center" which he felt was GI related. He notes a history of GERD and noted that his chest pain typically improved after belching. 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 He notes that this morning he had chest pain after getting out of bed that lasted close to 3-4 hours, the longest it's been, that he attributed mainly to GERD and movement in and out of the car. He notes a family history of a mother who had a heart attack. Currently, patient notes that he feels well. He describes a slight epigastric "tightness" whenever he takes a deep breath, but otherwise has no chest pain or chest pressure. Denies any SOB or abdominal pain. Allergies Allergy/AdvReac Type Severity Reaction Status Date / Time No Known Allergies Allergy NONE Verified 08/03/20 11:13 Home Medications Home Medications Medication Instructions Recorded Confirmed Type sildenafil (pulm.hypertension) 20 20 mg PO Q4H #20 tab MDD 5 tablets 06/03/19 12/19/19 Rx mg tablet fluticasone propionate 110 2 puffs INHALATION DAILY #3 gm 11/27/19 07/03/20 Rx mcg/actuation HFA aerosol inhaler fluticasone propionate 50 2 sprays INTRANASAL DAILY #3 gm 11/27/19 07/03/20 Rx mcg/actuation nasal spray,suspension hydrochlorothiazide 25 mg tablet 25 mg PO DAILY #90 tab 11/27/19 07/03/20 Rx losartan 50 mg tablet 50 mg PO DAILY #90 tab 11/27/19 07/03/20 Rx terazosin 5 mg capsule 5 mg PO DAILY #90 cap 01/16/20 07/03/20 Rx diclofenac sodium 75 mg 75 mg PO BID #180 tab 04/06/20 07/03/20 Rx tablet,delayed release glipizide 10 mg tablet, extended 10 mg PO BID #180 tab 04/06/20 07/03/20 Rx release 24 hr omeprazole 20 mg capsule,delayed 20 mg PO DAILY 08/03/20 08/03/20 History release Patient History Medical History (Updated 08/03/20 @ 15:59 by Emily Coronado RN) Anemia HLD (hyperlipidemia) Olecranon bursitis MAURICIO on CPAP Social History Smoking Status: Former smoker Hx Alcohol Use: Yes Alcohol type: beer Hx Substance Use: No Preferred Language: Hungarian Communication Ability: Effective Food Safety Manager Required: No Beliefs That Will Affect Care: None Current Living Situation: Spouse Other Information That Helps Us Care for You: No Feels Safe at Home: Yes Safety Concerns: Feels Safe At This Time Assistive Devices: CPAP, Glasses and Hearing Aid - Right Review of Systems Constitutional: + fatigue; no fever and no chills Eyes: no worsening vision Ear, Nose, Mouth, Throat: no tinnitus and no dizziness Respiratory: no cough, no dyspnea and no pain on inspiration Cardiovascular: no chest pain, no dyspnea, no dyspnea on exertion and no palpitations Gastrointestinal: no abdominal pain, no belching, no nausea and no vomiting Genitourinary: no dysuria Physical Exam Constitutional: well developed, well nourished and + obese; no acute distress Eyes: PERRL, conjunctivae normal, anicteric sclerae Respiratory: normal respiratory effort, lungs clear to auscultation Cardiovascular: RRR, no murmur, no edema Extremities: no edema Gastrointestinal (Abdomen): Inspection/Auscultation: abdomen normal to inspection and normal bowel sounds Percussion/Palpation: abdomen soft; abdomen nontender Musculoskeletal: no cyanosis or clubbing, extremities motor strength 5/5 Neurologic: PERRL, EOMI, accommodation nl, no face palsy, no dysarthria moves all extremities Psychiatric: A+Ox3, euthymic affect Results & Data Results & Data ([facility]) Vital Signs (Past 12 Hours) Vital Signs Temp Pulse Pulse Resp BP BP Pulse Ox 08/03/20 14:44 50 L 16 116/65 93 08/03/20 14:30 55 L 16 117/68 95 08/03/20 12:35 36.6 C 81 20 142/82 H 97 Resident Activity Tracking Resident Involvement: Resident Care Provided Care Provided: Adult Hospital Medicine
[2020-08-03] MEDS ORDERED: CARBOHYDRATES FOR HYPOGLYCEMIA PO PRN (15:53)
[2020-08-03] MEDS ORDERED: GLUCOSE 40% GEL 15 GM TUBE PO PRN (15:53)
[2020-08-03] MEDS ORDERED: DEXTROSE 50% 50 ML SYRINGE IV PRN (15:53)
[2020-08-03] MEDS ORDERED: GLUCAGON FOR INJ 1 MG VIAL SQ PRN (15:53)
[2020-08-03] MEDS ORDERED: GLUCOSE 10 TABS/TUBE PO PRN (15:53)
[2020-08-03] MEDS: SODIUM CHLORIDE 0.9% 1000ML 1,000 ML IV SCH ×2 (15:59→16:01)
[2020-08-03] MEDS: EPTIFIBATIDE 75 MG/100 ML VIAL IV SCH ×2 (16:03→20:56)
[2020-08-03] MEDS: INSULIN ASPART 100 UNITS/ML 3 ML PEN SC SCH ×2 (16:28→20:57)
--- NOTE | 2020-08-03 17:17 | Billing Data ---
Date of Service August 03, 2020 Coding Level of Care Code 77975 Initial Inpt Care Lvl 3
[2020-08-03] MEDS: METOPROLOL TARTRATE 25 MG TAB PO SCH (20:49)
[2020-08-03] MEDS ORDERED: SIMVASTATIN 80 MG TAB PO SCH (21:00)
[2020-08-04] MEDS: TICAGRELOR 90 MG TAB PO SCH ×3 (00:38→20:55)
[2020-08-04] MEDS: SODIUM CHLORIDE 0.9% 1000ML 1,000 ML IV SCH (01:50)
[2020-08-04 03:14] LABS: Basophils # (auto) 0.03 K/uL (0-0.2); Basophils % (auto) 0.2 %; Eosinophils # (auto) 0.03 K/uL (0-0.5); Eosinophils % (auto) 0.2 %; Hematocrit (blood only) 40.4 % (42-52); Hemoglobin 13.5 g/dL (14.0-18.0); Immature Granulocytes # (auto) 0.03 K/uL (0.00-0.02); Immature Granulocytes % (auto) 0.2 %; Lymphocytes # (auto) 1.09 K/uL (1.2-3.4); Lymphocytes % (auto) 8.9 %; Mean Corpuscular Hemoglobin 31.5 pg (25-34); Mean Corpuscular Hgb Conc 33.4 g/dL (32-36); Mean Corpuscular Volume 94.4 fL (80-100); Mean Platelet Volume 10.9 fL (7.4-10.4); Monocytes # (auto) 1.28 K/uL (0.11-0.59); Monocytes % (auto) 10.4 %; Neutrophils # (auto) 9.83 K/uL (1.4-6.5); Neutrophils % (auto) 80.1 %; Platelet Count 229 K/uL (130-400); RDW Coefficient of Variation 13.9 % (11.5-14.5); RDW Standard Deviation 47.7 fL (36.4-46.3); Red Blood Count 4.28 M/uL (4.7-6.1); White Blood Count 12.29 K/uL (4.8-10.8)
[2020-08-04 03:48] LABS: BUN Creatinine Ratio 17.8 (10-20); Calcium 8.1 mg/dl (8.5-10.1); Creatinine Clr Calc Pharmacy 61.5 ml/min; Est GFR (African American) 56.7; Est GFR (Non-African American) 48.9; Magnesium 1.9 mg/dl (1.8-2.4); Potassium 3.7 mmol/L (3.5-5.1)
[2020-08-04] MEDS ORDERED: POTASSIUM CHLORIDE 20 MEQ TABCR PO STA (05:04)
--- NOTE | 2020-08-04 05:55 | Critical Care Progress Note ---
Date of Service August 04, 2020 Assessment & Plan (1) Acute [place]: Reason Critically Ill: 74M with acute STEMI s/p stent x3 of LAD NEURO: CAM ICU:Negative -No concerns at this time. CARDIAC: -ST Elevations V2-V5 noted on EKG in PCP's office -Patient underwent PCI of LAD x3 with Dr. Rowan by R radial approach -Was loaded with Ticagrelor 180mg in entry level lab technician -Continue Integrilin x6 hours -- since completed -Continue ASA 81mg and Ticagrelor 90mg BID -Continue Metoprolol tartrate 25mg BID, Losartan 25mg QD -Trend troponin until peak, initial trop 3.12 -Echo pending -Atorvastatin 80mg QD -A1c 5.9 -Lipid profile Cholesterol 117, LDL 65, HDL 33 RESPIRATORY: -MAURICIO, allow home cpap -Continue Fluticasone for asthma -Continue Flonase GI: -Continue Protonix 40mg qAM RENAL/LYTES: -CKD stage III creatine ~1.4, at baseline -Continue to monitor BMP : -Hold Terazosin ENDO: -Hold Glipizide -SSI HEME: -Monitor CBC and troponin ID: -No concerns at this time LINES/IV ACCESS: L antecubital, R forearm CODE STATUS: Full DVT PROPHYLAXIS: Held Dispo: Downgrade today Thank you for allowing us to participate in the care of this patient. Please refer to my attending physician's documentation for any further recommendations. (2) Atypical chest pain: Admission and Anticipated Discharge Date Admission Date: August 03, 2020 Supervising Physician Co-Signing Physician Notes Dr. Lew was resident physician during care of patient. I separately evaluated patient for andrade portions of the history and the exam. I was present during the critical portion of medical decision making, and I discussed the case with the resident. I generally agree with the findings and plan. Stable for downgrade out of ICU Subjective Patient evaluated at the bedside this AM. Noted that he had a "rougher" night, still having 1/2 chest discomfort that he was experiencing all of yesterday. He notes that this discomfort completely resolved around 3AM and is currently pain free. He notes he was having some slight SOB earlier which he believes was due to his asthma, but that had resolved as well. Review of Systems Constitutional: no fever and no chills Eyes: no worsening vision Ear, Nose, Mouth, Throat: no dizziness Respiratory: + stopping breathing during sleep; no cough Cardiovascular: no chest pain, no palpitations and no edema Gastrointestinal: no abdominal pain, no nausea and no vomiting Physical Exam Constitutional: well developed, well nourished and + obese; no acute distress Eyes: PERRL, conjunctivae normal, anicteric sclerae Respiratory: normal respiratory effort, lungs clear to auscultation Cardiovascular: RRR, no murmur, no edema Extremities: no edema Gastrointestinal (Abdomen): Inspection/Auscultation: abdomen normal to inspection and normal bowel sounds Percussion/Palpation: abdomen soft; abdomen nontender Musculoskeletal: no cyanosis or clubbing, extremities motor strength 5/5 Neurologic: PERRL, EOMI, accommodation nl, no face palsy, no dysarthria moves all extremities Psychiatric: A+Ox3, euthymic affect Results & Data Results & Data ([facility]) Vital Signs (Past 12 Hours) Vital Signs Temp Pulse Resp BP Pulse Ox 08/04/20 00:25 70 27 H 92/48 L 94 08/04/20 00:00 36.6 C 67 25 H 95/51 L 91 08/03/20 23:25 69 23 95/51 L 95 08/03/20 22:25 65 24 121/77 92 08/03/20 21:25 71 19 113/74 94 08/03/20 20:25 36.8 C 68 22 138/88 92 08/03/20 19:24 75 23 144/85 H 96 08/03/20 19:09 73 22 137/74 94 08/03/20 18:56 96 H 24 126/84 94 08/03/20 18:39 82 22 142/84 H 95 Resident Activity Tracking Resident Involvement: Resident Care Provided Care Provided: Adult Hospital Medicine
[2020-08-04 06:28] LABS: Estimated Average Glucose 123 mg/dl; Hemoglobin A1C 5.9 % (4.5-5.6)
--- NOTE | 2020-08-04 06:49 | Electrocardiogram Report ---
Test Reason : Blood Pressure : / mmHG Vent. Rate : 083 BPM Atrial Rate : 083 BPM P-R Int : 198 ms QRS Dur : 092 ms QT Int : 372 ms P-R-T Axes : 042 016 034 degrees QTc Int : 437 ms Normal sinus rhythm Anterior infarct , possibly acute ACUTE NH / STEMI Abnormal ECG No previous ECGs available Confirmed by Isael Jane ([id number]) on 08/04/2020 6:49:00 AM Referred By: REFERRED SELF Confirmed By:Isael Jane
--- NOTE | 2020-08-04 06:57 | Electrocardiogram Report ---
Test Reason : Blood Pressure : / mmHG Vent. Rate : 057 BPM Atrial Rate : 057 BPM P-R Int : 234 ms QRS Dur : 096 ms QT Int : 404 ms P-R-T Axes : 071 076 025 degrees QTc Int : 393 ms Sinus bradycardia with 1st degree A-V block and Premature ventricular complexes Low voltage QRS Anterior infarct (cited on or before 03-AUG-2020) ST elevation, consider injury pattern Abnormal ECG When compared with ECG of 03-AUG-2020 12:37, Serial changes of Anterior infarct Confirmed by Isael Jane ([id number]) on 08/04/2020 6:57:28 AM Referred By: REFERRED SELF Confirmed By:Isael Jane
[2020-08-04] MEDS: LOSARTAN POTASSIUM 25 MG TAB PO SCH (07:41)
[2020-08-04] MEDS: FLUTICASONE FUROATE 100MCG 14 PUFFS/INHALER INH SCH (07:41)
[2020-08-04] MEDS: METOPROLOL TARTRATE 25 MG TAB PO SCH ×2 (07:41→20:56)
[2020-08-04] MEDS: PANTOprazole 40 MG TAB PO SCH (07:41)
[2020-08-04] MEDS: ATORVASTATIN 40 MG TAB PO SCH (07:41)
[2020-08-04] MEDS: ASPIRIN 81 MG ECTAB PO SCH (07:41)
[2020-08-04] MEDS: FLUTICASONE PROPIONATE NA SPR 16 GM BTL SCH (07:42)
[2020-08-04] MEDS: INSULIN ASPART 100 UNITS/ML 3 ML PEN SC SCH ×4 (07:44→20:56)
--- NOTE | 2020-08-04 09:26 | Billing Data ---
Date of Service August 04, 2020 Coding Level of Care Code 49305 Subseq Hosp Care Lvl 3
--- NOTE | 2020-08-04 09:57 | XCELERA ---
[id number] \\[id number]___[id number]
[2020-08-04] MEDS ORDERED: GLUCAGON FOR INJ 1 MG VIAL IM PRN (10:30)
[2020-08-04] MEDS ORDERED: CARBOHYDRATES FOR HYPOGLYCEMIA PO PRN (10:30)
[2020-08-04] MEDS ORDERED: DEXTROSE 50% 50 ML SYRINGE IV PRN (10:30)
[2020-08-04] MEDS ORDERED: GLUCOSE 10 TABS/TUBE PO PRN (10:30)
[2020-08-04] MEDS ORDERED: GLUCOSE 40% GEL 15 GM TUBE PO PRN (10:30)
--- NOTE | 2020-08-04 17:38 | Cardiology Progress Note ---
Date of Service August 04, 2020 Assessment & Plan (1) Acute RI: Post primary PCI with 3 CLARIBEL to LAD 2. Moderate LV dysfunctionEF 35 to 40%, apical akinesis 3. Hypertension 4. Well controlled type 2 diabetes 5. Chronic renal insufficiency 6. Obesity, obstructive sleep apnea 7. GERD Chest pain is resolved. Troponin has peaked. Hemodynamically and electrically stable overnight. Well-perfused with minimal congestion on exam No access to complications. Reviewed echocardiogram from today. No clear LV thrombus. Continue DAPT with aspirin, ticagrelor Continue current metoprolol, losartan Start spironolactone If recurrent dyspnea overnight, will give dose of Lasix in the a.m. Continue atorvastatin Repeat limited echo tomorrow again looking for LV thrombus Transfer to telemetry today. Likely home tomorrow. Admission and Anticipated Discharge Date Admission Date: August 03, 2020 Subjective Feeling well this morning. Residual chest pain resolved overnight. Questionable orthopnea. No significant pain at right radial artery access site. Review of Systems Review of Systems: All systems reviewed & are unremarkable except as noted in HPI & below Physical Exam Physical Exam: General: Comfortable, no acute distress HEENT: Sclerae anicteric, mucous membranes moist Lungs: Clear to auscultation bilaterally, no rhonchi or wheezes Cardiac: Regular rate and rhythm, no murmurs. Abdomen: Soft, nontender, nondistended, positive bowel sounds. Extremities: Warm, well perfused, no edema. Right radial artery access site with no ecchymosis, hematoma. Distal pulse and sensation intact. Skin: No rashes or lesions. Neuro: Nonfocal Psych: Alert orient x3, normal affect and mood Results & Data ([facility]) Vital Signs (Past 12 Hours) Vital Signs Temp Pulse Pulse Pulse Resp BP Pulse Ox 08/04/20 16:07 98.1 F 85 17 113/72 96 08/04/20 16:00 78 08/04/20 15:14 99.3 F 68 20 121/68 96 PG Care Time/CCT Total # of Minutes Spent Total Time Spent with Patient: Total time spent is greater than 50% in coordination of care (as documented) at patient's floor/unit and/or counseling patient: Coding Level of Care Code 66883 Subseq Hosp Care Lvl 3 Diagnoses Acute RI I21.9
[2020-08-04] MEDS: SPIRONOLACTONE 25 MG TAB PO SCH (18:30)
[2020-08-05 07:44] LABS: BUN Creatinine Ratio 17.1 (10-20); Calcium 8.6 mg/dl (8.5-10.1); Creatinine Clr Calc Pharmacy 54.3 ml/min; Est GFR (African American) 48.9; Est GFR (Non-African American) 42.2; Potassium 3.6 mmol/L (3.5-5.1)
[2020-08-05] MEDS: FLUTICASONE FUROATE 100MCG 14 PUFFS/INHALER INH SCH (08:44)
[2020-08-05] MEDS: ASPIRIN 81 MG ECTAB PO SCH (08:45)
[2020-08-05] MEDS: PANTOprazole 40 MG TAB PO SCH (08:45)
[2020-08-05] MEDS: LOSARTAN POTASSIUM 25 MG TAB PO SCH (08:45)
[2020-08-05] MEDS: FLUTICASONE PROPIONATE NA SPR 16 GM BTL SCH (08:45)
[2020-08-05] MEDS: ATORVASTATIN 40 MG TAB PO SCH (08:45)
[2020-08-05] MEDS: SPIRONOLACTONE 25 MG TAB PO SCH (08:46)
[2020-08-05] MEDS: METOPROLOL TARTRATE 25 MG TAB PO SCH (08:46)
[2020-08-05] MEDS: TICAGRELOR 90 MG TAB PO SCH (08:46)
[2020-08-05] MEDS: INSULIN ASPART 100 UNITS/ML 3 ML PEN SC SCH ×2 (08:47→12:46)
--- NOTE | 2020-08-05 12:05 | XCELERA ---
[id number] \\[id number]
--- NOTE | 2020-08-05 13:54 | Discharge Summary ---
Date of Service August 05, 2020 Admission HPI Per Admitting Provider 74 year old male that presented from his PCPs office with atypical chest pain x3 days found to have a STEMI on in office EKG and underwent PCI of LAD x3 stents. Patient notes that for the past 3 days he had been having on and off chest pain that he described as "chest tightness in the center" which he felt was GI related. He notes a history of GERD and noted that his chest pain typically improved after belching. 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 He notes that this morning he had chest pain after getting out of bed that lasted close to 3-4 hours, the longest it's been, that he attributed mainly to GERD and movement in and out of the car. He notes a family history of a mother who had a heart attack. Currently, patient notes that he feels well. He describes a slight epigastric "tightness" whenever he takes a deep breath, but otherwise has no chest pain or chest pressure. Denies any SOB or abdominal pain. Specialty Data Cardiology Cath/PCI 08/03/2020: 1. Anterior STEMI/100% mid LAD occlusion -Mid to distal LAD with moderate diffuse disease 2. Severe non-culprit coronary artery disease -90% ostial OM 2 3. Elevated intracardiac filling pressure 4. Successful PCI of mid LAD occlusion with 2 overlapping drug-eluting stents (3.0 x 38, 2.5 x 18 mm [place]; postdilated with 4.5 NC) and a third nonoverlapping stent to latemid LAD stenosis (2.25 x 15 mm [place]) Discharge Data Consultations 08/03/20 14:18 Consult Iv Rn Routine 08/03/20 14:50 Consult Cardiac Rehabilitation Routine Procedures Performed Operation Date: 08/03/20 12:30 Actual Procedures s Cineradiography w/Routine Exam - Aureliano Rowan MD p Aspiration/PCI w/CLARIBEL for Stemi - Aureliano Rowan MD s Cath, Left with Cors and Vent - Aureliano Rowan MD s IVUS Coronary Single Vessel - Aureliano Rowan MD Hospital Course (1) Acute [place]: Upon arrival to ED taken for emergent cardiac catheterization which revealed 100% mid LAD occlusion. This was treated with 2 overlapping drug- eluting stents at site of occlusion and 1 additional drug-eluting stent to a 70% latemid LAD stenosis. Had severe non-culprit disease involving his proximal OM 2 with a 90% stenosis. Post procedure admitted to ICU for further monitoring. Remained hemodynamically and electrically stable. Chest pain-free by hospital day 2. No access site complications. Troponin peaked at greater than 200. Echocardiogram showed severe LV dysfunction with an EF of 30 to 35% with LAD distribution severe hypokinesis to akinesis. There was questionable LV thrombus but on repeat echocardiogram on hospital day 3 no LV thrombus noted. In hospital labs remarkable for total cholesterol 117, triglycerides of 95, HDL 33, LDL 65 and an A1c of 5.9. On day of discharge patient was feeling well and discharged home. Creatinine mildly elevated on day of discharge at 1.57. Repeat BMP pending for next week. Discharged home on dual antiplatelet therapy with aspirin, ticagrelor. Started on new high intensity statin. Previously on losartan and discharged on new Toprol-XL, spironolactone. Plan for medical management of residual coronary artery disease. Repeat echocardiogram in 2 to 3 months. Follow-up with cardiology in 1 week. Cardiac rehab in the future. Discharge Instructions Home Medications sildenafil (pulm.hypertension) 20 mg tablet 20 mg PO Q4H #20 tab MDD 5 tablets 06/03/19 [Rx Confirmed 12/19/19] fluticasone propionate 110 mcg/actuation HFA aerosol inhaler 2 puffs INHALATION DAILY #3 gm 11/27/19 [Rx Confirmed 07/03/20] fluticasone propionate 50 mcg/actuation nasal spray,suspension 2 sprays INTRANASAL DAILY #3 gm 11/27/19 [Rx Confirmed 07/03/20] terazosin 5 mg capsule 5 mg PO DAILY #90 cap 01/16/20 [Rx Confirmed 07/03/20] glipizide 10 mg tablet, extended release 24 hr 10 mg PO BID #180 tab 04/06/20 [Rx Confirmed 07/03/20] omeprazole 20 mg capsule,delayed release 20 mg PO DAILY 08/03/20 [History Confirmed 08/03/20] aspirin 81 mg PO QAM #30 tab 08/05/20 [Rx] atorvastatin 80 mg PO QAM #30 tab 08/05/20 [Rx] losartan 25 mg PO DAILY #45 tab 08/05/20 [Rx Confirmed 07/03/20] metoprolol succinate [Toprol XL] 50 mg PO DAILY #30 tab 08/05/20 [Rx] spironolactone 25 mg PO QAM #30 tab 08/05/20 [Rx] ticagrelor [Brilinta] 90 mg PO BID #60 tab 08/05/20 [Rx] Coding Level of Care Code D/C Day Management >30 mins Diagnoses Acute [place] I21.9
== END 2020-08-05 14:40 | disposition home or self-care (01) | DRG 247 ==
LOC: ED 12:33 → CC 12:50 → 1E 14:18 → 2S 08-04 15:49

== ENCOUNTER 2020-08-07 03:53 | Observation (INO) ==
[2020-08-07] MEDS ORDERED: ASPIRIN CHEW 324 MG PO STA (03:59)
[2020-08-07] MEDS ORDERED: NITROGLYCERIN SL 0.4 MG/TAB TAB SL PRN ×2 (03:59→05:40)
[2020-08-07] MEDS ORDERED: Heparin IV Low Dose WITH Bolus IV STA (04:14)
[2020-08-07] MEDS ORDERED: METOPROLOL TARTRATE 1 MG/ML VIAL IV STA (04:14)
[2020-08-07] MEDS ORDERED: HEPARIN SODIUM/DEXTROSE 25,000 UNITS/500 ML BAG IV SCH (04:15)
[2020-08-07] MEDS ORDERED: HEPARIN SOD (PORCINE) 1000 UNIT/ML 10 ML VIAL ONE (04:20)
[2020-08-07 04:25] LABS: Basophils # (auto) 0.03 K/uL (0-0.2); Basophils % (auto) 0.3 %; Eosinophils # (auto) 0.07 K/uL (0-0.5); Eosinophils % (auto) 0.6 %; Hematocrit (blood only) 39.2 % (42-52); Hemoglobin 12.9 g/dL (14.0-18.0); Immature Granulocytes # (auto) 0.01 K/uL (0.00-0.02); Immature Granulocytes % (auto) 0.1 %; Lymphocytes # (auto) 0.61 K/uL (1.2-3.4); Lymphocytes % (auto) 5.1 %; Mean Corpuscular Hemoglobin 30.4 pg (25-34); Mean Corpuscular Hgb Conc 32.9 g/dL (32-36); Mean Corpuscular Volume 92.5 fL (80-100); Mean Platelet Volume 11.3 fL (7.4-10.4); Monocytes # (auto) 1.39 K/uL (0.11-0.59); Monocytes % (auto) 11.6 %; Neutrophils # (auto) 9.86 K/uL (1.4-6.5); Neutrophils % (auto) 82.3 %; Platelet Count 258 K/uL (130-400); RDW Coefficient of Variation 13.9 % (11.5-14.5); RDW Standard Deviation 47.1 fL (36.4-46.3); Red Blood Count 4.24 M/uL (4.7-6.1); White Blood Count 11.97 K/uL (4.8-10.8)
[2020-08-07] MEDS ORDERED: FAMOTIDINE 20MG/5ML IV PUSH IV STA (04:26)
[2020-08-07 04:37] LABS: INR 1.1 (0.9-1.1); Partial Thromboplastin Ratio 0.9; Partial Thromboplastin Time 25.4 Seconds (21.0-31.0); Prothrombin Time 11.4 Seconds (9.0-12.0)
[2020-08-07 04:41] LABS: BUN Creatinine Ratio 20.3 (10-20); Calcium 8.5 mg/dl (8.5-10.1); Creatinine Clr Calc Pharmacy 55.2 ml/min; Est GFR (African American) 48.9; Est GFR (Non-African American) 42.2; Potassium 3.9 mmol/L (3.5-5.1)
[2020-08-07 04:51] LABS: Albumin Globulin Ratio 0.7 (0.9-2); Bilirubin,Total 1.3 mg/dl (0.2-1); Globulin 4.3 gm/dl (2.5-4.0); Total Protein 7.3 gm/dl (6.4-8.2); Troponin I 28.7 ng/ml (0-0.045)
--- NOTE | 2020-08-07 05:15 | History & Physical Report ---
Date of Service August 07, 2020 Assessment & Plan (1) Unstable angina: Unstable angina/CAD/hypertension/anterior STEMI on August 03/status post 2 overlapping CLARIBEL in mid LAD lesion/status post 1 stent in late-mid LAD lesion- The patient will be admitted to telemetry for serial cardiac enzymes, serial EKG's, cardiac rhythm monitoring. Continue aspirin 81 mg daily, losartan 25 mg daily, metoprolol succinate 50 mg p.o. daily, spironolactone 25 mg every morning and ticagrelor 90 mg p.o. twice daily. Heparin drip, standard protocol following 3000 unit IV bolus. Consult Dr. Ayan Rowan. Present on Admission?: Yes (2) ST elevation AL (STEMI): See above Present on Admission?: Yes (3) Hypercholesterolemia: Continue atorvastatin 80 mg daily Present on Admission?: Yes (4) Asthma: Continue fluticasone propionate HFA 2 puffs daily and fluticasone nasal spray, 2 sprays intranasally daily Present on Admission?: Yes (5) Enlarged prostate with lower urinary tract symptoms (LUTS): Continue terazosin 5 mg daily Present on Admission?: Yes (6) Hypertension: See above Present on Admission?: Yes (7) Sleep apnea: CPAP if needed at bedtime Present on Admission?: Yes (8) CKD (chronic kidney disease), stage III: Creatinine 1.57 upon admission, with range 1.31-1.68. Follow serially Gentle hydration with NSS at 60 mils per hour Present on Admission?: Yes History of Present Illness Chief Complaint: The patient presents to the emergency department with worsening substernal chest pain. Primary Care Provider: Cain Vivas MD The patient is a 74-year-old male with a past medical history including exogenous obesity, CKD stage III, sleep apnea, macular degeneration, hypertension, GERD, ED, BPH with LUTS, carpal tunnel syndrome, asthma, hypercholesterolemia, STEMI and abnormal EKG. The patient was most recently admitted from 08/03-08/05/2020, after presenting to the emergency department and found to be having a STEMI on 08/03, and heart alert was called with emergent catheterization performed by Dr. Rowan. Patient reports that he had been doing somewhat better since catheterization, but was still having some dyspnea on exertion, and over the past 24 hours was experiencing more chest discomfort, but not the same as prior to catheterization. During the catheterization, he received 2 overlapping CLARIBEL to a mid LAD lesion, and a nonoverlapping third stent to a late-mid LAD lesion. Patient reports that he has been taking his medications as directed, with the addition of Brilinta 90 mg p.o. twice daily to his regimen. Allergies Allergy/AdvReac Type Severity Reaction Status Date / Time No Known Allergies Allergy NONE Verified 08/07/20 04:09 Home Medications Home Medications Medication Instructions Recorded Confirmed Type fluticasone propionate 110 2 puffs INHALATION DAILY #3 gm 11/27/19 08/07/20 Rx mcg/actuation HFA aerosol inhaler fluticasone propionate 50 2 sprays INTRANASAL DAILY #3 gm 11/27/19 08/07/20 Rx mcg/actuation nasal spray,suspension terazosin 5 mg capsule 5 mg PO DAILY #90 cap 01/16/20 08/07/20 Rx glipizide 10 mg tablet, extended 10 mg PO BID #180 tab 04/06/20 08/07/20 Rx release 24 hr omeprazole 20 mg capsule,delayed 20 mg PO DAILY 08/03/20 08/07/20 History release aspirin 81 mg PO QAM #30 tab 08/05/20 08/07/20 Rx atorvastatin 80 mg PO QAM #30 tab 08/05/20 08/07/20 Rx losartan 25 mg PO DAILY #45 tab 08/05/20 08/07/20 Rx metoprolol succinate [Toprol XL] 50 mg PO DAILY #30 tab 08/05/20 08/07/20 Rx spironolactone 25 mg PO QAM #30 tab 08/05/20 08/07/20 Rx ticagrelor [Brilinta] 90 mg PO BID #60 tab 08/05/20 08/07/20 Rx sildenafil (pulm.hypertension) 20 mg PO Q4H PRN MDD 5 tablets 08/07/20 08/07/20 History Past Med/Surg History Medical History (Updated 08/07/20 @ 05:08 by Pablo Carrizales MD) Anemia CKD (chronic kidney disease), stage III HLD (hyperlipidemia) Olecranon bursitis MAURICIO on CPAP Social History Smoking Status: Former smoker Tobacco Type: Cigarettes Hx Alcohol Use: Yes Alcohol type: beer Hx Substance Use: No Preferred Language: Korean Communication Ability: Effective 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: No Beliefs That Will Affect Care: None Current Living Situation: Spouse Feels Safe at Home: Yes Assistive Devices: Glasses and Hearing Aid - Right Review of Systems Review of Systems: The patient denies palpitations, change in his chronic cough, change in his chronic lower extremity swelling, sore throat, fevers, chills, sweats, weight change, fatigue, nausea, vomiting, diarrhea , constipation, abdominal pain, pelvic pain, blood in urine or stool, dysuria, urinary frequency or urgency, lightheadedness, dizziness, headache, memory loss, loss of consciousness, imbalance, focal or generalized weakness, numbness or tingling in arms or legs, generalized arthralgias or myalgias, back or neck pain, or night sweats. The review of systems is otherwise negative other than for that already noted above, and at least 10 systems have been reviewed. Physical Exam Physical Exam: The patient is awake, alert and oriented 3, well developed and well nourished, normocephalic and atraumatic, lying in bed and in no acute distress. HEENT--PERRL, EOMI, mucous membranes and oropharynx normal. Neck--supple. No JVD. No bruits. Thyroid normal, trachea midline, no adenopathy. Heart--normal S1 and S2. No murmurs, rubs or gallops. Lungs--clear bilaterally, no respiratory distress, no accessory muscle use. Abdomen--normal bowel sounds and soft. Nontender. Nondistended. Morbidly obese. Extremities--no cyanosis or clubbing. 1+ bilateral pretibial pitting edema. Dermatologic--normal skin turgor, normal color, no abnormal lymph nodes, no rash. Neurologic--cranial nerves II through XII grossly intact. Rheumatologic--normal range of motion. Psychiatric--normal affect. Results & Data Results & Data ([facility]) Vital Signs (Past 12 Hours) Vital Signs Temp Pulse Pulse Resp BP BP Pulse Ox 08/07/20 04:37 96 H 123/70 08/07/20 04:36 96 H 25 H 123/70 95 08/07/20 04:09 113 H 20 136/80 93 08/07/20 04:03 103 H 94 08/07/20 04:00 110 H 17 136/80 93 08/07/20 03:59 98 H 24 128/65 93 08/07/20 03:55 99.5 F 112 H 24 128/65 93 Laboratory Results Laboratory Results WBC 11.97 K/uL (4.8-10.8) H 08/07/20 04:05 RBC 4.24 M/uL (4.7-6.1) L 08/07/20 04:05 Hgb 12.9 g/dL (14.0-18.0) L 08/07/20 04:05 Hct 39.2 % (42-52) L 08/07/20 04:05 MCV 92.5 fL (80-100) 08/07/20 04:05 MCH 30.4 pg (25-34) 08/07/20 04:05 MCHC 32.9 g/dL (32-36) 08/07/20 04:05 RDW Std Deviation 47.1 fL (36.4-46.3) H 08/07/20 04:05 RDW Coeff of Chai 13.9 % (11.5-14.5) 08/07/20 04:05 Plt Count 258 K/uL (130-400) 08/07/20 04:05 MPV 11.3 fL (7.4-10.4) H 08/07/20 04:05 Immature Gran % (Auto) 0.1 % 08/07/20 04:05 Neut % (Auto) 82.3 % 08/07/20 04:05 Lymph % (Auto) 5.1 % 08/07/20 04:05 [place]dwell % (Auto) 11.6 % 08/07/20 04:05 Eos % (Auto) 0.6 % 08/07/20 04:05 Baso % (Auto) 0.3 % 08/07/20 04:05 Neut # (Auto) 9.86 K/uL (1.4-6.5) H 08/07/20 04:05 Lymph # (Auto) 0.61 K/uL (1.2-3.4) L 08/07/20 04:05 [place]dwell # (Auto) 1.39 K/uL (0.11-0.59) H 08/07/20 04:05 Eos # (Auto) 0.07 K/uL (0-0.5) 08/07/20 04:05 Baso # (Auto) 0.03 K/uL (0-0.2) 08/07/20 04:05 Immature Gran # (Auto) 0.01 K/uL (0.00-0.02) 08/07/20 04:05 PT 11.4 Seconds (9.0-12.0) 08/07/20 04:05 INR 1.1 (0.9-1.1) 08/07/20 04:05 APTT 25.4 Seconds (21.0-31.0) 08/07/20 04:05 PTT Ratio 0.9 08/07/20 04:05 Sodium 138 mmol/L (136-145) 08/07/20 04:05 Potassium 3.9 mmol/L (3.5-5.1) 08/07/20 04:05 Chloride 107 mmol/L (98-107) 08/07/20 04:05 Carbon Dioxide 23 mmol/L (21-32) 08/07/20 04:05 Anion Gap 8.0 (3-11) 08/07/20 04:05 BUN 32 mg/dl (7-18) H 08/07/20 04:05 Creatinine 1.57 mg/dl (0.6-1.4) H 08/07/20 04:05 Est Cr Clr Drug Dosing 55.2 ml/min 08/07/20 04:05 Est GFR ( Amer) 48.9 08/07/20 04:05 Est GFR (Non-Af Amer) 42.2 08/07/20 04:05 BUN/Creatinine Ratio 20.3 (10-20) H 08/07/20 04:05 Glucose 114 mg/dl (70-99) H 08/07/20 04:05 Calcium 8.5 mg/dl (8.5-10.1) 08/07/20 04:05 Total Bilirubin 1.3 mg/dl (0.2-1) H 08/07/20 04:05 AST 74 U/L (15-37) H 08/07/20 04:05 ALT 57 U/L (12-78) 08/07/20 04:05 Alkaline Phosphatase 75 U/L (45-117) 08/07/20 04:05 Troponin I 28.700 ng/ml (0-0.045) H* 08/07/20 04:05 Total Protein 7.3 gm/dl (6.4-8.2) 08/07/20 04:05 Albumin 3.0 gm/dl (3.4-5.0) L 08/07/20 04:05 Globulin 4.3 gm/dl (2.5-4.0) H 08/07/20 04:05 Albumin/Globulin Ratio 0.7 (0.9-2) L 08/07/20 04:05 Lipase 97 U/L (73-393) 08/07/20 04:05 Code Status & VTE Plan Code Status Full code VTE Prophylaxis Plan VTE Prophylaxis will be ordered: Yes PG Care Time/CCT Total # of Minutes Spent Total Time Spent with Patient: Total time spent is greater than 50% in coordination of care (as documented) at patient's floor/unit and/or counseling patient: Coding Level of Care Code 21193 Initial Inpt Care Lvl 3 Diagnoses Unstable angina I20.0 ST elevation AL (STEMI) I21.3 Involved coronary artery: unspecified coronary artery Hypercholesterolemia E78.00 Asthma J45.909 Enlarged prostate with lower urinary tract symptoms (LUTS) N40.1 Hypertension I10 Sleep apnea G47.30 CKD (chronic kidney disease), stage III N18.30 (1) ST elevation AL (STEMI) Involved coronary artery: unspecified coronary artery Qualified Code(s): I21.3 - ST elevation (STEMI) myocardial infarction of unspecified site
[2020-08-07] MEDS ORDERED: CARBOHYDRATES FOR HYPOGLYCEMIA PO PRN (05:40)
[2020-08-07] MEDS ORDERED: GLUCOSE 40% GEL 15 GM TUBE PO PRN (05:40)
[2020-08-07] MEDS ORDERED: GLUCOSE 10 TABS/TUBE PO PRN (05:40)
[2020-08-07] MEDS ORDERED: MAGNESIUM HYDROXIDE SUSP 30 ML UDC PO PRN (05:40)
[2020-08-07] MEDS ORDERED: SODIUM CHLORIDE 0.9% 1000ML 1,000 ML IV SCH (05:40)
[2020-08-07] MEDS ORDERED: DEXTROSE 50% 50 ML SYRINGE IV PRN (05:40)
[2020-08-07] MEDS ORDERED: ALUMINUM/MAGNESIUM SUSP 30 ML UDC PO PRN ×2 (05:40→15:58)
[2020-08-07] MEDS ORDERED: GLUCAGON FOR INJ 1 MG VIAL SQ PRN (05:40)
[2020-08-07] MEDS ORDERED: ACETAMINOPHEN 325 MG TAB PO PRN (05:40)
[2020-08-07] MEDS ORDERED: ONDANSETRON INJ 2 MG/ML 2 ML VIAL IV PRN (05:40)
--- NOTE | 2020-08-07 05:46 | Emergency Department Note ---
History of Present Illness General Chief complaint: Chest Pain Time Seen by Provider: 08/07/20 03:59 Source: patient, family (), EMS and RN notes reviewed Mode of arrival: EMS Limitations: no limitations History of Present Illness Provider complaint: Chest pain xdays Maximum Pain Intensity: 4 This patient is a 74-year-old male who presents emergency department with complaints of substernal chest pain, primarily with deep inspiration. Patient states several days ago he was here for more persistent chest discomfort and had [address] Rowan. He states he had this atypical type pleuritic pain during the hospitalization and is not certain that it never quite went away. He denies any fevers, shortness of breath, vomiting, abdominal pain or diarrhea. Patient states he has been taking his aspirin and Brilinta as prescribed. He became concerned with the chest discomfort early this morning and called the ambulance. Home Medications Home Medications Medication Instructions Recorded Confirmed Type fluticasone propionate 110 2 puffs INHALATION DAILY #3 gm 11/27/19 08/07/20 Rx mcg/actuation HFA aerosol inhaler fluticasone propionate 50 2 sprays INTRANASAL DAILY #3 gm 11/27/19 08/07/20 Rx mcg/actuation nasal spray,suspension terazosin 5 mg capsule 5 mg PO DAILY #90 cap 01/16/20 08/07/20 Rx glipizide 10 mg tablet, extended 10 mg PO BID #180 tab 04/06/20 08/07/20 Rx release 24 hr omeprazole 20 mg capsule,delayed 20 mg PO DAILY 08/03/20 08/07/20 History release atorvastatin 80 mg PO QAM #30 tab 08/05/20 08/07/20 Rx losartan 25 mg PO DAILY #45 tab 08/05/20 08/07/20 Rx metoprolol succinate [Toprol XL] 50 mg PO DAILY #30 tab 08/05/20 08/07/20 Rx spironolactone 25 mg PO QAM #30 tab 08/05/20 08/07/20 Rx clopidogrel [Plavix] 75 mg PO DAILY #90 tab 08/08/20 Rx colchicine [Colcrys] 0.6 mg PO BID #60 tab 08/08/20 Rx rivaroxaban [Xarelto] 20 mg PO PM #30 tab 08/08/20 Rx Allergies Allergy/AdvReac Type Severity Reaction Status Date / Time No Known Allergies Allergy NONE Verified 08/07/20 04:09 Past Med/Surg History Medical History Anemia CKD (chronic kidney disease), stage III HLD (hyperlipidemia) Olecranon bursitis MAURICIO on CPAP Social History Smoking Status: Former smoker Tobacco Type: Cigarettes Second Hand Exposure: No; Hx Alcohol Use: Yes Alcohol type: beer Hx Substance Use: No Preferred Language: Faroese Communication Ability: Effective Outreach Director Required: No Beliefs That Will Affect Care: None Current Living Situation: Spouse Feels Safe at Home: Yes Assistive Devices: CPAP, Glasses and Hearing Aid - Right Review of Systems See HPI for pertinent positives & negatives. and A total of 10 systems reviewed and were otherwise negative Physical Exam Vital Signs Vital Signs - 24 hr 08/07/20 03:55 08/07/20 03:59 08/07/20 04:00 Temperature 37.5 C Temperature Source Oral Pulse Rate 112 H 98 H 110 H Pulse Rate [Right Finger] Pulse Rate from SpO2 Sensor 101 H 106 H Pulse Rhythm Regular Pulse Strength Normal Respiratory Rate 24 24 17 Respiratory Depth Normal Blood Pressure 128/65 128/65 136/80 Blood Pressure [Right Arm] Blood Pressure Mean 86 107 94 Blood Pressure Mean [Right Arm] Blood Pressure Position Lying Blood Pressure Position [Right Arm] Pulse Oximetry 93 93 93 Oxygen Delivery Method Room Air Room Air Room Air Sepsis Recent Fever Within 48 Hours No Sepsis New/Unexplained Change in Mental Status No Sepsis Action Taken by Nursing No Action Required 08/07/20 04:03 08/07/20 04:09 08/07/20 04:36 Temperature Temperature Source Pulse Rate 103 H 96 H Pulse Rate [Right Finger] 113 H Pulse Rate from SpO2 Sensor 95 H Pulse Rhythm Pulse Strength Respiratory Rate 20 25 H Respiratory Depth Normal Blood Pressure 123/70 Blood Pressure [Right Arm] 136/80 Blood Pressure Mean 83 Blood Pressure Mean [Right Arm] 98 Blood Pressure Position Blood Pressure Position [Right Arm] Sitting Pulse Oximetry 94 93 95 Oxygen Delivery Method Room Air Room Air Room Air Sepsis Recent Fever Within 48 Hours Sepsis New/Unexplained Change in Mental Status Sepsis Action Taken by Nursing 08/07/20 04:37 Temperature Temperature Source Pulse Rate 96 H Pulse Rate [Right Finger] Pulse Rate from SpO2 Sensor Pulse Rhythm Pulse Strength Respiratory Rate Respiratory Depth Blood Pressure 123/70 Blood Pressure [Right Arm] Blood Pressure Mean Blood Pressure Mean [Right Arm] Blood Pressure Position Blood Pressure Position [Right Arm] Pulse Oximetry Oxygen Delivery Method Sepsis Recent Fever Within 48 Hours Sepsis New/Unexplained Change in Mental Status Sepsis Action Taken by Nursing Vital signs reviewed. General: Well-appearing 75 yo male, in no significant distress. HEENT: No scleral icterus, PERRLA, neck supple. Atraumatic. Cardiovascular: Regular rate and rhythm no extra sounds. Pulmonary: Clear to auscultation bilaterally, normal work of breathing. Abdomen: Soft, nontender, nondistended, positive bowel sounds. Musculoskeletal: Atraumatic, no peripheral edema. Neurologic: Patient awake alert and oriented x 3. Skin: Warm, dry, no rash Course Administered Medications Discontinued Medications Al Hydrox/Mg Hydrox/Simethicone (Aluminum/Magnesium Susp 30 Ml Udc) 15 ml PO Q4H PRN PRN Reason: Dyspepsia Stop: 09/06/20 05:39 Last Admin: 08/07/20 06:36 Dose: 15 ml Documented by: [id number] Aspirin (Aspirin Chew 324 Mg) 324 mg PO NOW STA Stop: 08/07/20 04:00 Last Admin: 08/07/20 04:03 Dose: 324 mg Documented by: [id number] Aspirin (Aspirin 81 Mg Ectab) 81 mg PO [facility] Stop: 09/06/20 08:59 Last Admin: 08/08/20 08:26 Dose: 81 mg Documented by: [id number] Admin: 08/07/20 08:00 Dose: 81 mg Documented by: [id number] Atorvastatin Calcium (Atorvastatin 40 Mg Tab) 80 mg PO [facility] Stop: 09/06/20 08:59 Last Admin: 08/08/20 08:25 Dose: 80 mg Documented by: [id number] Admin: 08/07/20 08:00 Dose: 80 mg Documented by: [id number] Clopidogrel Bisulfate (Clopidogrel Bisulfate 300 Mg Tab) 300 mg PO NOW STA Stop: 08/08/20 12:29 Last Admin: 08/08/20 14:44 Dose: 300 mg Documented by: [id number] Colchicine (Colchicine 0.6 Mg Tab) 0.6 mg PO BID [facility] Stop: 09/06/20 20:59 Last Admin: 08/08/20 08:26 Dose: 0.6 mg Documented by: [id number] Admin: 08/07/20 20:02 Dose: 0.6 mg Documented by: [id number] Famotidine (Famotidine 20mg/5ml Iv Push) 20 mg IV ONE STA Stop: 08/07/20 04:27 Last Admin: 08/07/20 04:37 Dose: 20 mg Documented by: [id number] Fluticasone Furoate (Fluticasone Furoate 100mcg 14 Puffs/Inhaler) 1 puffs INH DAILY [facility] Stop: 09/06/20 08:59 Last Admin: 08/08/20 08:26 Dose: 1 puffs Documented by: [id number] Admin: 08/07/20 08:11 Dose: 1 puffs Documented by: [id number] Fluticasone Propionate (Fluticasone Propionate Na Spr 16 Gm Btl) 2 sprays NOLAN DAILY [facility] Stop: 09/06/20 08:59 Last Admin: 08/08/20 08:27 Dose: 2 sprays Documented by: [id number] Admin: 08/07/20 08:02 Dose: Not Given Documented by: [id number] Glipizide (Glipizide 5 Mg Tab) 10 mg PO BIDM [facility] Stop: 09/06/20 07:59 Last Admin: 08/08/20 08:25 Dose: 10 mg Documented by: [id number] Admin: 08/07/20 16:21 Dose: 10 mg Documented by: [id number] Admin: 08/07/20 08:00 Dose: 10 mg Documented by: [id number] Heparin Sodium (Porcine) (Heparin Sod (Porcine) 1000 Unit/Ml 10 Ml Vial) Confirm Administered Dose 10,000 units .ROUTE .STK-MED ONE Stop: 08/07/20 04:21 Last Admin: 08/07/20 04:37 Dose: 3,000 units Documented by: [id number] Cosigned by: [id number] Heparin Sodium/Dextrose (Heparin Sodium/Dextrose) 25,000 units in 500 mls @ 24 mls/hr IV .[id number] [facility]; Protocol Stop: 09/06/20 04:14 Last Titration: 08/07/20 16:00 Dose: 0 units/hr, 0 mls/hr Documented by: [id number] Cosigned by: [id number] Titration: 08/07/20 11:38 Dose: 1,200 units/hr, 24 mls/hr Documented by: [id number] Cosigned by: [id number] Admin: 08/07/20 04:36 Dose: 1,000 units/hr, 20 mls/hr Documented by: [id number] Cosigned by: [id number] Sodium Chloride (Nss 1000ml) 1,000 mls @ 60 mls/hr IV .[id number] [facility] Stop: 09/06/20 05:39 Last Infusion: 08/07/20 14:00 Dose: 0 mls/hr Documented by: [id number] Admin: 08/07/20 06:31 Dose: 60 mls/hr Documented by: [id number] Heparin Sodium (Porcine) 4,500 (units/ Syringe) 4.5 mls @ 10 mls/min IV TODAY@1200 ONE Stop: 08/07/20 12:01 Last Admin: 08/07/20 12:42 Dose: 10 mls/min Documented by: [id number] Cosigned by: [id number] Furosemide 40 mg/ Syringe 4 mls @ 4 mls/min IV ONE ONE Stop: 08/07/20 16:06 Last Admin: 08/07/20 16:21 Dose: 4 mls/min Documented by: [id number] Insulin Aspart (Insulin Aspart 100 Units/Ml 3 Ml Pen) 0 units SC ACHS SARAH Stop: 09/06/20 07:29 Last Admin: 08/08/20 12:27 Dose: 3 units Documented by: [id number] Cosigned by: [id number] Admin: 08/08/20 08:24 Dose: 4 units Documented by: [id number] Cosigned by: [id number] Admin: 08/07/20 21:40 Dose: Not Given Documented by: [id number] Cosigned by: [id number] Admin: 08/07/20 16:23 Dose: Not Given Documented by: [id number] Cosigned by: [id number] Admin: 08/07/20 12:40 Dose: Not Given Documented by: [id number] Cosigned by: [id number] Admin: 08/07/20 07:58 Dose: Not Given Documented by: [id number] Cosigned by: [id number] Losartan Potassium (Losartan Potassium 25 Mg Tab) 25 mg PO DAILY [facility] Stop: 09/06/20 08:59 Last Admin: 08/08/20 08:26 Dose: 25 mg Documented by: [id number] Admin: 08/07/20 08:00 Dose: 25 mg Documented by: [id number] Metoprolol Succinate (Metoprolol Succ 50mg Ext Rel Tab) 50 mg PO DAILY SARAH Stop: 09/06/20 08:59 Last Admin: 08/08/20 08:26 Dose: 50 mg Documented by: [id number] Admin: 08/07/20 08:00 Dose: 50 mg Documented by: [id number] Metoprolol Tartrate (Metoprolol Tartrate 1 Mg/Ml Vial) 2.5 mg IV NOW STA Stop: 08/07/20 04:15 Last Admin: 08/07/20 04:37 Dose: 2.5 mg Documented by: [id number] Nitroglycerin (Nitroglycerin Sl 0.4 Mg/Tab Tab) 0.4 mg SL UD PRN PRN Reason: Chest Pain Stop: 09/06/20 03:58 Last Admin: 08/07/20 04:03 Dose: 0.4 mg Documented by: [id number] Nitroglycerin (Nitroglycerin Sl 0.4 Mg/Tab Tab) 0.4 mg SL UD PRN PRN Reason: Chest Pain Stop: 09/06/20 05:39 Last Admin: 08/07/20 06:37 Dose: 0.4 mg Documented by: [id number] Pantoprazole Sodium (Pantoprazole 40 Mg Tab) 40 mg PO DAILY SARAH Stop: 09/06/20 08:59 Last Admin: 08/08/20 08:25 Dose: 40 mg Documented by: [id number] Admin: 08/07/20 08:00 Dose: 40 mg Documented by: [id number] Rivaroxaban (Rivaroxaban 20 Mg Tab) 20 mg PO DAILY SARAH Stop: 09/07/20 12:59 Last Admin: 08/08/20 14:44 Dose: 20 mg Documented by: [id number] Spironolactone (Spironolactone 25 Mg Tab) 25 mg PO QAM SARAH Stop: 09/06/20 08:59 Last Admin: 08/08/20 08:26 Dose: 25 mg Documented by: [id number] Admin: 08/07/20 08:11 Dose: 25 mg Documented by: [id number] Terazosin HCl (Terazosin Hcl 5 Mg Cap) 5 mg PO DAILY SARAH Stop: 09/06/20 08:59 Last Admin: 08/08/20 08:26 Dose: 5 mg Documented by: [id number] Admin: 08/07/20 08:00 Dose: 5 mg Documented by: [id number] Ticagrelor (Ticagrelor 90 Mg Tab) 90 mg PO BID SARAH Stop: 09/06/20 08:59 Last Admin: 08/08/20 08:26 Dose: 90 mg Documented by: [id number] Admin: 08/07/20 20:02 Dose: 90 mg Documented by: [id number] Admin: 08/07/20 08:00 Dose: 90 mg Documented by: [id number] Critical Care Time Critical Care Time: Yes Total Critical Care Time: 40 The high probability of a clinically significant, sudden or life threatening deterioration required my full and direct attention, intervention and personal management. The aggregate critical care time was 40 minutes. This time is in addition to time spent performing reported procedures but includes the following: [x] Data Review and interpretation [x] Patient assessment and monitoring of vital signs [x] Documentation [x] Medication orders and management Medical Decision Making Differential Diagnosis DDx: Acute coronary syndrome, pulmonary embolus, aortic dissection, musculoskeletal pain, pneumonia, pleural effusion, pneumothorax, GERD, PUD, pancreatits Medical Records Attestation: I reviewed the patient's medical records. Home Medications Current Medication List: was personally reviewed by me Laboratory Data Attestation: I reviewed the patient's lab results. Result diagrams: 08/08/20 06:21 08/08/20 06:21 Lab Results 08/07/20 08/07/20 08/07/20 Range/Units 04:05 04:05 04:05 WBC 11.97 H (4.8-10.8) K/uL RBC 4.24 L (4.7-6.1) M/uL Hgb 12.9 L (14.0-18.0) g/dL Hct 39.2 L (42-52) % MCV 92.5 (80-100) fL MCH 30.4 (25-34) pg MCHC 32.9 (32-36) g/dL RDW Std Deviation 47.1 H (36.4-46.3) fL RDW Coeff of Chai 13.9 (11.5-14.5) % Plt Count 258 (130-400) K/uL MPV 11.3 H (7.4-10.4) fL Immature Gran % (Auto) 0.1 % Neut % (Auto) 82.3 % Lymph % (Auto) 5.1 % [place] % (Auto) 11.6 % Eos % (Auto) 0.6 % Baso % (Auto) 0.3 % Neut # (Auto) 9.86 H (1.4-6.5) K/uL Lymph # (Auto) 0.61 L (1.2-3.4) K/uL [place] # (Auto) 1.39 H (0.11-0.59) K/uL Eos # (Auto) 0.07 (0-0.5) K/uL Baso # (Auto) 0.03 (0-0.2) K/uL Immature Gran # (Auto) 0.01 (0.00-0.02) K/uL PT 11.4 (9.0-12.0) Seconds INR 1.1 (0.9-1.1) APTT 25.4 (21.0-31.0) Seconds PTT Ratio 0.9 Sodium 138 (136-145) mmol/L Potassium 3.9 (3.5-5.1) mmol/L Chloride 107 (98-107) mmol/L Carbon Dioxide 23 (21-32) mmol/L Anion Gap 8.0 (3-11) BUN 32 H (7-18) mg/dl Creatinine 1.57 H (0.6-1.4) mg/dl Est Cr Clr Drug Dosing 55.2 ml/min Est GFR ( Amer) 48.9 Est GFR (Non-Af Amer) 42.2 BUN/Creatinine Ratio 20.3 H (10-20) Glucose 114 H (70-99) mg/dl Calcium 8.5 (8.5-10.1) mg/dl Total Bilirubin 1.3 H (0.2-1) mg/dl AST 74 H (15-37) U/L ALT 57 (12-78) U/L Alkaline Phosphatase 75 (45-117) U/L Troponin I 28.700 H* (0-0.045) ng/ml Total Protein 7.3 (6.4-8.2) gm/dl Albumin 3.0 L (3.4-5.0) gm/dl Globulin 4.3 H (2.5-4.0) gm/dl Albumin/Globulin Ratio 0.7 L (0.9-2) Lipase 97 (73-393) U/L Imaging Data Attestation: I personally reviewed and interpreted this imaging study as follows: Radiologist's Impression: XR chest 1V portable HISTORY: Atypical Chest Pain COMPARISON: Chest 07/24/2009. FINDINGS: No pneumothorax. The heart is mildly enlarged. There is perihilar interstitial and vascular thickening suggestive of mild congestive change. Left basilar linear density is noted. IMPRESSION: 1. Cardiomegaly with mild congestive change. 2. Left basilar linear density. This may represent atelectasis or pneumonia. ACT 112: Negative or not required by law. Electronically signed by: Austin Carvalho M.D. 08/07/2020 8:10 AM Dictated: 08/07/20807 Transcribed: 08/07/20807 ECG Data Attestation: I personally reviewed and interpreted this ECG as follows: Indication: + chest pain Rate (beats per minute): 93 Rhythm: + atrial flutter ECG Intervals/blocks: + Normal QT-c ECG ST segments: + ST elevation (Anterolateral) ECG Findings: + Q waves (Anterior) Blood Pressure Blood Pressure Findings: Normal blood pressure Blood Pressure Disposition: did not require urgent referral MDM Narrative This pt was evaluated and appeared to be in no distress. IV access was obtained and lab work was drawn. An order for cardiac monitoring was placed and pt was noted to be in a NSR. EKG reveals ST elevation in anterolateral leads. Pt was given ASA 324 mg and started on a heparin gtt. Trop was markedly elevated at 28.6, but likely trending down from large AK earlier in the week where trop >200 at max. Pt case was discussed with Dr Rowan of interventional cardiology who agreed with the plan. The hospitalist was consulted for admission. Pt and were informed of the findings and agreed with plan. Impression & Plan Substernal precordial chest pain, H/O acute myocardial infarction of anterior wall, S/P coronary artery stent placement Discharge Plan Visit Data Chief Complaint: Chest Pain ED Provider: Gabby Mcwilliams Discharge Problem: Substernal precordial chest pain, H/O acute myocardial infarction of anterior wall, S/P coronary artery stent placement Patient Disposition: Admitted As Inpatient Discharge Instructions Interventions: ED Discharge Assessment Last Done: 08/07/20 05:12
[2020-08-07] MEDS: INSULIN ASPART 100 UNITS/ML 3 ML PEN SC SCH ×4 (07:58→21:40)
[2020-08-07] MEDS: TICAGRELOR 90 MG TAB PO SCH ×2 (08:00→20:02)
[2020-08-07] MEDS: glipiZIDE 5 MG TAB PO SCH ×2 (08:00→16:21)
[2020-08-07] MEDS: METOPROLOL SUCC 50MG EXT REL TAB PO SCH (08:00)
[2020-08-07] MEDS: PANTOprazole 40 MG TAB PO SCH (08:00)
[2020-08-07] MEDS: LOSARTAN POTASSIUM 25 MG TAB PO SCH (08:00)
[2020-08-07] MEDS: ASPIRIN 81 MG ECTAB PO SCH (08:00)
[2020-08-07] MEDS: ATORVASTATIN 40 MG TAB PO SCH (08:00)
[2020-08-07] MEDS: TERAZOSIN HCL 5 MG CAP PO SCH (08:00)
[2020-08-07] MEDS: FLUTICASONE PROPIONATE NA SPR 16 GM BTL NAE SCH (08:02)
[2020-08-07] MEDS: SPIRONOLACTONE 25 MG TAB PO SCH (08:11)
[2020-08-07] MEDS: FLUTICASONE FUROATE 100MCG 14 PUFFS/INHALER INH SCH (08:11)
--- NOTE | 2020-08-07 08:11 | XRay Report ---
XR chest 1V portable HISTORY: Atypical Chest Pain COMPARISON: Chest 07/24/2009. FINDINGS: No pneumothorax. The heart is mildly enlarged. There is perihilar interstitial and vascular thickening suggestive of mild congestive change. Left basilar linear density is noted. IMPRESSION: 1. Cardiomegaly with mild congestive change. 2. Left basilar linear density. This may represent atelectasis or pneumonia. ACT 112: Negative or not required by law. Electronically signed by: Austin Carvalho M.D. 08/07/2020 8:10 AM
[2020-08-07 11:17] LABS: Partial Thromboplastin Ratio 1.1; Partial Thromboplastin Time 30.5 Seconds (21.0-31.0)
[2020-08-07] MEDS ORDERED: HEPARIN IV BOLUS 4,500 UNITS in SYRINGE 0 ML IV ONE (12:00)
[2020-08-07] MEDS ORDERED: ALBUT/IPRATROP 3MG/0.5MG NEB 3 ML VIAL NEB PRN (15:54)
[2020-08-07] MEDS ORDERED: FUROSEMIDE 40 MG in SYRINGE 0 ML IV ONE (16:05)
--- NOTE | 2020-08-07 16:14 | Cardiology Consultation ---
Date of Consultation August 07, 2020 Assessment & Plan (1) Atypical chest pain: 2. CAD post recent anterior MIPost primary PCI with 3 CLARIBEL to LAD 3. Moderate LV dysfunctionEF 40%, apical akinesis 4. type 2 diabetes 5. Chronic renal insufficiency 6. Obesity, obstructive sleep apnea, asthma 7. GERD 8. Mild mitral regurgitation 9. Anemia Patients recurrent symptoms do not represent repeat coronary event. Suspect in part related to mild congestion and possible post FL pericarditis. LV function unchanged to improved on repeat echocardiogram. No new pericardial effusion or post FL mechanical complications. Can stop heparin infusion now. We will diurese today with 20 mg IV Lasix. Will also start on colchicine 0.6 mg twice daily. Continue DAPT with aspirin, ticagrelor Continue current metoprolol, losartan, spironolactone, statin. --PRN bronchodilators for wheezing. Continue PPI antacids as needed. Likely home tomorrow if stable overnight. History of Present Illness Attending Physician: Bruno Whitfield History of Present Illness 74 year old male readmitted overnight with intermittent chest pain, shortness of breath. He was discharged 08/05/2020 after hospitalization for anterior FL treated with primary PCI. Describes 5-10 chest heaviness occurring initially after he laid down for the evening. Was able to sleep for a few hours in the recliner but then had worsened symptoms. Pain different and not as severe as presenting FL. No palpitations, no presyncope. On arrival ECG again showed anterior Q waves, ST elevations unchanged from post PCI ECG. Initial troponin XX 8 and a since trended down. Chest x-ray showed mild congestion. No complex arrhythmias on telemetry. States is still been having intermittent symptoms of shortness of breath/discomfort while hospitalized. No improvement with sublingual nitroglycerin. Repeat echocardiogram showed EF 35 to 40%. No pericardial effusion. Mild mitral regurgitation. Recent hospitalization details: Emergent cardiac catheterization which revealed 100% mid LAD occlusion. This was treated with 2 overlapping drug-eluting stents at site of occlusion and 1 additional drug-eluting stent to a 70% latemid LAD stenosis. Had severe non- culprit disease involving his proximal OM 2 with a 90% stenosis. Post procedure admitted to ICU for further monitoring. Remained hemodynamically and electrically stable. Chest pain-free by hospital day 2. No access site complications. Troponin peaked at greater than 200. Echocardiogram showed severe LV dysfunction with an EF of 30 to 35% with LAD distribution severe hypokinesis to akinesis. There was questionable LV thrombus but on repeat echocardiogram on hospital day 3 no LV thrombus noted. In hospital labs remarkable for total cholesterol 117, triglycerides of 95, HDL 33, LDL 65 and an A1c of 5.9. Cath/PCI 08/03/2020: 1. Anterior STEMI/100% mid LAD occlusion -Mid to distal LAD with moderate diffuse disease 2. Severe non-culprit coronary artery disease -90% ostial OM 2 3. Elevated intracardiac filling pressure 4. Successful PCI of mid LAD occlusion with 2 overlapping drug-eluting stents (3.0 x 38, 2.5 x 18 mm Min; postdilated with 4.5 NC) and a third nonoverlapping stent to latemid LAD stenosis (2.25 x 15 mm Min) Allergies Allergy/AdvReac Type Severity Reaction Status Date / Time No Known Allergies Allergy NONE Verified 08/07/20 04:09 Home Medications Home Medications Medication Instructions Recorded Confirmed Type fluticasone propionate 110 2 puffs INHALATION DAILY #3 gm 11/27/19 08/07/20 Rx mcg/actuation HFA aerosol inhaler fluticasone propionate 50 2 sprays INTRANASAL DAILY #3 gm 11/27/19 08/07/20 Rx mcg/actuation nasal spray,suspension terazosin 5 mg capsule 5 mg PO DAILY #90 cap 01/16/20 08/07/20 Rx glipizide 10 mg tablet, extended 10 mg PO BID #180 tab 04/06/20 08/07/20 Rx release 24 hr omeprazole 20 mg capsule,delayed 20 mg PO DAILY 08/03/20 08/07/20 History release aspirin 81 mg PO QAM #30 tab 08/05/20 08/07/20 Rx atorvastatin 80 mg PO QAM #30 tab 08/05/20 08/07/20 Rx losartan 25 mg PO DAILY #45 tab 08/05/20 08/07/20 Rx metoprolol succinate [Toprol XL] 50 mg PO DAILY #30 tab 08/05/20 08/07/20 Rx spironolactone 25 mg PO QAM #30 tab 08/05/20 08/07/20 Rx ticagrelor [Brilinta] 90 mg PO BID #60 tab 08/05/20 08/07/20 Rx Patient History Medical History Anemia CKD (chronic kidney disease), stage III HLD (hyperlipidemia) Olecranon bursitis MAURICIO on CPAP Social History Smoking Status: Former smoker Tobacco Type: Cigarettes Second Hand Exposure: No; Hx Alcohol Use: Yes Alcohol type: beer Hx Substance Use: No Preferred Language: French Communication Ability: Effective Retort Setter Required: No Beliefs That Will Affect Care: None Current Living Situation: Spouse Feels Safe at Home: Yes Assistive Devices: CPAP, Glasses and Hearing Aid - Right Review of Systems Review of Systems: 10 point review of systems was completed and was otherwise negative unless stated in HPI Physical Exam Physical Exam: General: Comfortable, no acute distress Eyes: Sclerae anicteric, extraocular movements intact HENT: Oropharynx clear mucous membranes moist Neck: JVP approximately 7-8 Lungs: Scant crackles at bases, scattered wheezing. Cardiac: Regular rate and rhythm, questionable rub right lower sternal border. Holosystolic murmur at the apex Vascular: 2+ radial bilaterally Abdomen: Soft, nontender, nondistended, positive bowel sounds. Extremities: Well perfused, trace edema right greater than left Skin: No rashes or lesions. Neuro: Nonfocal Psych: Alert orient x3, normal affect and mood Results & Data ([facility]) Vital Signs (Past 12 Hours) Vital Signs Temp Pulse Pulse Resp BP BP BP 08/07/20 15:07 98.8 F 94 H 14 123/56 L 08/07/20 11:50 98.8 F 63 19 92/51 L 08/07/20 10:35 88 08/07/20 07:26 97.5 F L 97 H 20 116/71 08/07/20 06:40 75 20 92/52 L 08/07/20 06:13 88 08/07/20 05:40 08/07/20 05:25 98.2 F 92 H 22 124/72 08/07/20 05:12 82 20 117/68 08/07/20 04:37 96 H 123/70 08/07/20 04:36 96 H 25 H 123/70 08/07/20 04:09 113 H 20 136/80 08/07/20 04:03 103 H Pulse Ox Pulse Ox 08/07/20 15:07 94 08/07/20 11:50 94 08/07/20 10:35 08/07/20 07:26 97 08/07/20 06:40 95 08/07/20 06:13 08/07/20 05:40 96 08/07/20 05:25 98 08/07/20 05:12 95 08/07/20 04:37 08/07/20 04:36 95 08/07/20 04:09 93 08/07/20 04:03 94 PG Care Time/CCT Total # of Minutes Spent Total Time Spent with Patient: Total time spent is greater than 50% in coordination of care (as documented) at patient's floor/unit and/or counseling patient: Coding Level of Care Code 36081 Initial Inpt Care Lvl 3 Diagnoses Atypical chest pain R07.89
--- NOTE | 2020-08-07 18:38 | XCELERA ---
[id number] [id number]\[id number]
[2020-08-07] MEDS: COLCHICINE 0.6 MG TAB PO SCH (20:02)
--- NOTE | 2020-08-07 22:26 | Electrocardiogram Report ---
Test Reason : Blood Pressure : / mmHG Vent. Rate : 097 BPM Atrial Rate : 097 BPM P-R Int : 180 ms QRS Dur : 088 ms QT Int : 346 ms P-R-T Axes : 026 098 052 degrees QTc Int : 439 ms Sinus rhythm with Premature atrial complexes Low voltage QRS Anterior infarct Lateral infarct Abnormal ECG When compared with ECG of 03-AUG-2020 15:34, Premature atrial complexes are now Present NM interval has decreased Vent. rate has increased BY [address] no longer depressed in Inferior leads Confirmed by Isael Jane ([id number]) on 08/07/2020 10:25:51 PM Referred By: REFERRED SELF Confirmed By:Isael Jane
[2020-08-08 07:11] LABS: Basophils # (auto) 0.02 K/uL (0-0.2); Basophils % (auto) 0.2 %; Eosinophils # (auto) 0.22 K/uL (0-0.5); Eosinophils % (auto) 2.3 %; Hematocrit (blood only) 35.6 % (42-52); Hemoglobin 12.1 g/dL (14.0-18.0); Immature Granulocytes # (auto) 0.03 K/uL (0.00-0.02); Immature Granulocytes % (auto) 0.3 %; Lymphocytes # (auto) 0.99 K/uL (1.2-3.4); Lymphocytes % (auto) 10.3 %; Mean Corpuscular Hemoglobin 31.3 pg (25-34); Mean Corpuscular Volume 92.2 fL (80-100); Mean Platelet Volume 11.4 fL (7.4-10.4); Monocytes # (auto) 1.21 K/uL (0.11-0.59); Monocytes % (auto) 12.5 %; Neutrophils # (auto) 7.18 K/uL (1.4-6.5); Neutrophils % (auto) 74.4 %; Platelet Count 248 K/uL (130-400); RDW Coefficient of Variation 13.9 % (11.5-14.5); RDW Standard Deviation 47.1 fL (36.4-46.3); Red Blood Count 3.86 M/uL (4.7-6.1); White Blood Count 9.65 K/uL (4.8-10.8)
[2020-08-08 07:21] LABS: INR 1.2 (0.9-1.1); Partial Thromboplastin Time 29.1 Seconds (21.0-31.0); Prothrombin Time 12.1 Seconds (9.0-12.0)
[2020-08-08 07:40] LABS: Albumin Level 2.6 gm/dl (3.4-5.0); BUN Creatinine Ratio 19.9 (10-20); Calcium 8.3 mg/dl (8.5-10.1); Creatinine Clr Calc Pharmacy 55.4 ml/min; Est GFR (African American) 50.1; Est GFR (Non-African American) 43.2; Magnesium 2.3 mg/dl (1.8-2.4); Potassium 3.5 mmol/L (3.5-5.1)
[2020-08-08 07:43] LABS: Albumin Globulin Ratio 0.7 (0.9-2); Total Protein 6.6 gm/dl (6.4-8.2)
[2020-08-08] MEDS: INSULIN ASPART 100 UNITS/ML 3 ML PEN SC SCH ×2 (08:24→12:27)
[2020-08-08] MEDS: glipiZIDE 5 MG TAB PO SCH (08:25)
[2020-08-08] MEDS: ATORVASTATIN 40 MG TAB PO SCH (08:25)
[2020-08-08] MEDS: PANTOprazole 40 MG TAB PO SCH (08:25)
[2020-08-08] MEDS: ASPIRIN 81 MG ECTAB PO SCH (08:26)
[2020-08-08] MEDS: COLCHICINE 0.6 MG TAB PO SCH (08:26)
[2020-08-08] MEDS: SPIRONOLACTONE 25 MG TAB PO SCH (08:26)
[2020-08-08] MEDS: METOPROLOL SUCC 50MG EXT REL TAB PO SCH (08:26)
[2020-08-08] MEDS: TERAZOSIN HCL 5 MG CAP PO SCH (08:26)
[2020-08-08] MEDS: TICAGRELOR 90 MG TAB PO SCH (08:26)
[2020-08-08] MEDS: FLUTICASONE FUROATE 100MCG 14 PUFFS/INHALER INH SCH (08:26)
[2020-08-08] MEDS: LOSARTAN POTASSIUM 25 MG TAB PO SCH (08:26)
[2020-08-08] MEDS: FLUTICASONE PROPIONATE NA SPR 16 GM BTL NAE SCH (08:27)
--- NOTE | 2020-08-08 12:03 | Electrocardiogram Report ---
Test Reason : Blood Pressure : / mmHG Vent. Rate : 093 BPM Atrial Rate : 093 BPM P-R Int : 138 ms QRS Dur : 094 ms QT Int : 364 ms P-R-T Axes : 070 191 058 degrees QTc Int : 452 ms Atrial flutter Low voltage QRS Anterolateral infarct (cited on or before 03-AUG-2020) evolving anterior PA Abnormal ECG When compared with ECG of 07-AUG-2020 03:58, Fusion complexes are now Present Premature atrial complexes are no longer Present Questionable change in QRS axis Confirmed by Ayan Paris ([id number]) on 08/08/2020 12:02:29 PM Referred By: REFERRED SELF Confirmed By:Phi Paris
[2020-08-08] MEDS ORDERED: CLOPIDOGREL BISULFATE 300 MG TAB PO STA (12:28)
--- NOTE | 2020-08-08 12:48 | Cardiology Progress Note ---
Date of Service August 08, 2020 Assessment & Plan (1) Atypical chest pain: 2. CAD post recent anterior MIPost primary PCI with 3 CLARIBEL to LAD 3. Moderate LV dysfunctionEF 40%, apical akinesis 4. type 2 diabetes 5. Chronic renal insufficiency 6. Obesity, obstructive sleep apnea, asthma 7. GERD 8. Mild mitral regurgitation 9. Anemia 10. Atrial flutter This symptoms which prompted his readmission have entirely resolved. This was suggest an element of inflammation related to his recent infarct or intervention. He will continue on colchicine. Unfortunately, his rhythm appears to be in atrial flutter. Overall rate control appears reasonable. Even with ambulation his heart rate hovers rate around 100 beats per minute. I think we will continue on his current dose of metoprolol and reassess this in the outpatient setting. He will require systemic anticoagulation at least in the short term. There may be options for return to sinus rhythm if he does not do so spontaneously which include cardioversion or catheter based therapy. We will start him on Xarelto, discontinue his aspirin and switch his Brilinta to Plavix. He will continue on the remainder of his medical regimen which includes high- dose atorvastatin, metoprolol succinate and losartan Admission and Anticipated Discharge Date Admission Date: August 07, 2020 Subjective This morning patient claims to be feeling well. He has had complete resolution of the symptoms which prompted his readmission. No symptoms of chest discomfort. He has been ambulatory around the avila without limitations on breathing. No dizziness or lightheadedness. No sense of palpitation. Review of Systems Review of Systems: For HPI Physical Exam Physical Exam: General: Comfortable, no acute distress Eyes: Sclerae anicteric, extraocular movements intact HENT: Oropharynx clear mucous membranes moist Lungs: Clear with good air movement. Cardiac: Regular rate and rhythm. Crescendo systolic murmur heard at the right upper sternal border. Vascular: 2+ radial bilaterally. Good perfusion of the right hand. Neuro: Nonfocal Psych: Alert orient x3, normal affect and mood Results & Data ([facility]) Vital Signs (Past 12 Hours) Vital Signs Temp Pulse Pulse Resp BP BP Pulse Ox 08/08/20 12:18 36.9 C 109 H 19 101/63 96 08/08/20 11:52 36.5 C 101 H 20 109/69 116/71 96 08/08/20 10:42 93 H 08/08/20 07:18 36.5 C 101 H 20 109/69 96 08/08/20 04:56 36.7 C 92 H 18 123/63 96 Laboratory Results Abnormal Lab Results 08/07/20 08/07/20 08/08/20 15:12 21:08 06:21 WBC 9.65 RBC 3.86 L Hgb 12.1 L Hct 35.6 L MCV 92.2 MCH 31.3 MCHC 34.0 RDW Std Deviation 47.1 H RDW Coeff of Chai 13.9 Plt Count 248 MPV 11.4 H Immature Gran % (Auto) 0.3 Neut % (Auto) 74.4 Lymph % (Auto) 10.3 Angelina % (Auto) 12.5 Eos % (Auto) 2.3 Baso % (Auto) 0.2 Neut # (Auto) 7.18 H Lymph # (Auto) 0.99 L Angelina # (Auto) 1.21 H Eos # (Auto) 0.22 Baso # (Auto) 0.02 Immature Gran # (Auto) 0.03 H PT INR APTT PTT Ratio Sodium Potassium Chloride Carbon Dioxide Anion Gap BUN Creatinine Est Cr Clr Drug Dosing Est GFR ( Amer) Est GFR (Non-Af Amer) BUN/Creatinine Ratio Glucose POC Glucose 103 H 72 Calcium Magnesium Total Bilirubin AST ALT Alkaline Phosphatase Total Protein Albumin Globulin Albumin/Globulin Ratio 08/08/20 08/08/20 08/08/20 06:21 06:21 07:20 WBC RBC Hgb Hct MCV MCH MCHC RDW Std Deviation RDW Coeff of Chai Plt Count MPV Immature Gran % (Auto) Neut % (Auto) Lymph % (Auto) Angelina % (Auto) Eos % (Auto) Baso % (Auto) Neut # (Auto) Lymph # (Auto) Angelina # (Auto) Eos # (Auto) Baso # (Auto) Immature Gran # (Auto) PT 12.1 H INR 1.2 H APTT 29.1 PTT Ratio 1.0 Sodium 141 Potassium 3.5 Chloride 110 H Carbon Dioxide 23 Anion Gap 8.0 BUN 31 H Creatinine 1.54 H Est Cr Clr Drug Dosing 55.4 Est GFR ( Amer) 50.1 Est GFR (Non-Af Amer) 43.2 BUN/Creatinine Ratio 19.9 Glucose 64 L POC Glucose 92 Calcium 8.3 L Magnesium 2.3 Total Bilirubin 1.0 AST 54 H ALT 48 Alkaline Phosphatase 76 Total Protein 6.6 Albumin 2.6 L Globulin 4.0 Albumin/Globulin Ratio 0.7 L 08/08/20 11:16 WBC RBC Hgb Hct MCV MCH MCHC RDW Std Deviation RDW Coeff of Chai Plt Count MPV Immature Gran % (Auto) Neut % (Auto) Lymph % (Auto) Angelina % (Auto) Eos % (Auto) Baso % (Auto) Neut # (Auto) Lymph # (Auto) Angelina # (Auto) Eos # (Auto) Baso # (Auto) Immature Gran # (Auto) PT INR APTT PTT Ratio Sodium Potassium Chloride Carbon Dioxide Anion Gap BUN Creatinine Est Cr Clr Drug Dosing Est GFR ( Amer) Est GFR (Non-Af Amer) BUN/Creatinine Ratio Glucose POC Glucose 122 H Calcium Magnesium Total Bilirubin AST ALT Alkaline Phosphatase Total Protein Albumin Globulin Albumin/Globulin Ratio ECG Additional Comments: Reviewed the patient's telemetry and EKGs suggest development of an atrial flutter with 3-1 AV conduction. PG Care Time/CCT Total # of Minutes Spent Total Time Spent with Patient: Total time spent is greater than 50% in coordination of care (as documented) at patient's floor/unit and/or counseling patient: Coding Level of Care Code 75076 Subseq Hosp Care Lvl 3 Diagnoses Atypical chest pain R07.89
[2020-08-08] MEDS ORDERED: RIVAROXABAN 20 MG TAB PO SCH (13:00)
[2020-08-08] MEDS ORDERED: CLOPIDOGREL BISULFATE 300 MG TAB ONE (14:42)
--- NOTE | 2020-08-08 17:25 | Electrocardiogram Report ---
Test Reason : Blood Pressure : / mmHG Vent. Rate : 111 BPM Atrial Rate : 111 BPM P-R Int : 208 ms QRS Dur : 106 ms QT Int : 302 ms P-R-T Axes : 000 126 052 degrees QTc Int : 410 ms Likely atrial flutter Low voltage QRS Anterolateral infarct (cited on or before 03-AUG-2020) Evolving anterior PA Abnormal ECG When compared with ECG of 08-AUG-2020 06:41, Serial changes of Anterior infarct Present Confirmed by Ayan Paris ([id number]) on 08/08/2020 5:24:46 PM Referred By: REFERRED SELF Confirmed By:Phi Paris
== END 2020-08-08 15:21 | disposition home or self-care (01) ==
LOC: ED 03:53 → INTOOBSV 04:58 → 2S 04:58 → SUATTDRO 04:58 → 2S 05:12

== ENCOUNTER 2025-06-18 13:58 | Inpatient (IN) ==
[2025-06-18 14:20] LABS: Hematocrit (blood only) 44.3 % (42.0-52.0); Hemoglobin 14.7 g/dl (14.0-18.0); Immature Granulocytes # (auto) 0.04 K/uL (0.01-0.20); Immature Granulocytes % (auto) 0.4 %; Mean Corpuscular Hemoglobin 30.6 pg (25.0-34.0); Mean Corpuscular Volume 92.1 fL (80.0-100.0); Platelet Count 188 K/uL (130-400); RDW Standard Deviation 46.6 fL (36.4-46.3); Red Blood Count 4.81 M/uL (4.70-6.10); White Blood Count 9.40 K/ul (4.8-10.8)
--- NOTE | 2025-06-18 14:27 | XRay Report ---
XR chest 1V portable CLINICAL HISTORY: Chest pain, nonspecific COMPARISON STUDY: 08/07/2020 FINDINGS: Stable cardiomegaly with mild pulmonary vascular congestion. No consolidation or pleural ef fusion. No pneumothorax. IMPRESSION: Mild CHF. ACT 112: Negative or not required by law. Electronically signed by: Wade Mccord M.D. 06/18/2025 2:26 PM
[2025-06-18 14:43] LABS: Alanine Aminotransferase 19 U/L (7-52); Albumin Globulin Ratio 1.1 (0.9-2); Alkaline Phosphatase 99 U/L (34-104); Anion Gap 7 (3-11); Bilirubin,Total 0.6 mg/dl (0.2-1.0); Blood Urea Nitrogen 31 mg/dl (6-23); Calcium 9.1 mg/dl (8.6-10.3); Carbon Dioxide 27 mmol/L (21-32); Chloride 107 mmol/L (98-107); Globulin 3.2 gm/dl (2.5-4.0); Glucose 168 mg/dl (70-99(Fasting)); Lipase 48 U/L (11-82); Magnesium 2.1 mg/dl (1.7-2.4); Potassium 3.9 mmol/L (3.5-5.1); Sodium 141 mmol/L (136-145); Total Protein 6.8 gm/dl (6.0-8.3)
[2025-06-18 14:54] LABS: INR 1.1 (0.9-1.1); Prothrombin Time 11.5 Seconds (9.0-12.0)
[2025-06-18 14:58] LABS: Thyroid Stimulating Hormone 1.978 uIu/ml (0.300-4.500)
--- NOTE | 2025-06-18 15:13 | Emergency Department Note ---
Impression & Plan Unstable angina, Dyspnea on exertion, Elevated troponin ED Provider Note NAME: STEPHANIE SCHULZ AGE: 79 SEX: M : 1945 ARRIVES VIA: Walk-In INFORMANT: Patient ED PROVIDER(S): Freddy Mccollum MD CHIEF COMPLAINT: Shortness of breath with exertion PLAN: Disposition: Admit MEDICAL DECISION MAKING: The patient is a pleasant 79-year-old gentleman with a past medical history of CAD with history of PCI, CHF with preserved EF, type 2 diabetes, hypertension, hyperlipidemia who presents to the emergency department via walk-in accompanied by his for evaluation of several weeks of progressively worsening dyspnea on exertion. They had followed with his PCP office recently and were arranging follow-up with cardiology to have outpatient stress test in July. However, the patient feels his symptoms have been worsening and today became short of breath when simply taking a shower and taking out the trash. Patient denies any discrete chest pain per se but acknowledges he may feel some tightness at times when his symptoms occur. Denies any fevers, chills, cough, congestion, GI or symptoms. He denies any symptoms when he is at rest. He denies symptoms at this time. On evaluation patient no distress, afebrile blood pressure 140/90 vital signs otherwise stable. He appears euvolemic. Exam is otherwise unremarkable. EKG without overt acute ischemia. CXR with mild vascular congestion and otherwise no consolidation or overt pulmonary edema. WBC, H/H and platelets within normal limits. Chemistry without metabolic acidosis. Creatinine 1.4, similar to prior range values. Electrolytes and LFTs unremarkable. BNP 160, nonspecific. Initial HS troponin 850, which in the context of the patient's exertional symptoms raises suspicion for unstable angina. Procalcitonin is not elevated. TSH within normal limits. UA without evidence of infection. Findings were reviewed with the patient and his at the bedside. They agree plan for admission for further management. Full dose aspirin was administered. Patient did take his dose of Eliquis this morning and so we will await 12-hour period to initiate heparin. Case was discussed with Dr. Rowan, the patient's php consultant. Agrees with admission for unstable angina and initiating heparin when appropriate. Likely will proceed with heart catheterization in the morning given patient's symptoms and troponin elevation. Appreciate consultation and recommendations. Case was discussed with Dr. Flores, [facility] [place] hospitalist, who will evaluate the patient for admission. Further management per admitting team. Triage Nursing notes reviewed and agree them. Prior/external medical records reviewed Vital Signs: reviewed Differential diagnosis: Reactive airway disease, pneumonia, pneumothorax, COPD, CHF, infections, cardiac ischemia, pulmonary embolism, musculoskeletal, gastrointestinal, as well as other pathologies. ER treatment provided: See below. Diagnostics interpreted by me: ECG: Sinus rhythm with first degree AV block, 67 bpm, no ectopy, ST abnormality, left anterior fascicular block, no overt ST elevation or depression, QTc 414, QRS 88. Cardiac Monitoring: An order for continuous cardiac monitoring was placed and demonstrated Sinus rhythm with first degree AV block, 67 bpm, no ectopy Laboratory studies: See below Imaging studies: See below Consultation(s): Dr. Rowan, [place] interventional cardiology Dr. Flores [facility] [place] hospitalist. HPI: Per MDM. ROS: See above HPI for pertinent positives & negatives. A total of 10 systems reviewed and were otherwise negative. VITALS:See Below PHYSICAL EXAMINATION: GENERAL: Awake, alert, in no distress HENT: Normocephalic, atraumatic. Oropharynx unremarkable. EYES: Normal conjunctiva. Sclera non-icteric. NECK: Supple. No nuchal rigidity. FROM. No JVD. RESPIRATORY: Clear to auscultation. CARDIAC: Regular rate, normal rhythm. Extremities warm and well perfused. Pulses equal. ABDOMEN: Soft, non-distended. No tenderness to palpation. No rebound or guarding. No masses. MUSCULOSKELETAL: Chest examination reveals no tenderness. The back is symmetrical on inspection without obvious abnormality. There is no CVA tenderness to palpation. No joint edema. LOWER EXTREMITIES: Calves are equal size bilaterally and non-tender. No edema. No discoloration. NEURO: Normal sensorium. No sensory or motor deficits noted. SKIN: No rash or jaundice noted. ED COURSE: Critical Care: I have personally spent greater than 35 minutes of critical care time in the direct management of this patient. This includes bedside care, interpretation of diagnostic studies, and testing, discussion with consultants, patient, and family members, and other required patient management activities. This 35 minutes is in excess of all separately billable procedures. Freddy Mccollum MD Past Med/Surg History Problem List (Updated 06/19/25 @ 01:21 by Freddy Mccollum MD) Elevated troponin (Acute) Dyspnea on exertion (Acute) Unstable angina (Acute) Stable angina Acute heart failure with preserved ejection fraction (HFpEF) Cognitive impairment Aortic regurgitation Obesity (BMI 30-39.9) Primary hypertension Actinic keratosis Seborrheic keratoses, inflamed HFrEF (heart failure with reduced ejection fraction) Recovered EF 50% 11/2020 Previously 35-40% 07/2020 Type 2 diabetes mellitus with microalbuminuria Sun-damaged skin Osteoarthritis CAD (coronary artery disease) (Chronic) STEMI 07/2020 s/p DESx3 to LAD & severe nonculprit disease CKD (chronic kidney disease), stage III Hypercholesterolemia (Acute) Asthma (Chronic) Carpal tunnel syndrome (Acute) Enlarged prostate with lower urinary tract symptoms (LUTS) (Acute) Erectile dysfunction (Acute) Gastroesophageal reflux disease (Acute) Macular degeneration (Acute) Microscopic hematuria (Acute) Shortness of breath (Acute) Sleep apnea (Acute) Ulnar nerve entrapment (Acute) Type 2 diabetes mellitus with obesity Medical History (Updated 06/19/25 @ 01:21 by Freddy Mccollum MD) On anticoagulant therapy Degenerative disc disease Chronic back pain BPH (benign prostatic hyperplasia) Diabetes mellitus, type 2 NIDDM Myocardial Infarction 08/03/2020, treated at [facility] and follows with Dr Rowan. Asthma well controlled with inhaler History of COVID-19 12/2020; fatigue and moderate cold symptoms. Atrial flutter with rapid ventricular response MAURICIO on CPAP HLD (hyperlipidemia) Anemia Surgical History (Updated 06/10/25 @ 09:41 by Nicole Castro MD) Hx of cataract surgery Right-January 17, 2023 Left- January 31, 2023 Hx of right cataract extraction History of cardiac cath History of colonoscopy S/P coronary artery stent placement x 3 S/P appendectomy Family History Father Lung disease Mother Heart disease Other No family history of adverse response to anesthesia Denies family history of Ovarian cancer Prostate cancer Breast cancer Colorectal cancer Social History Smoking Status: Former smoker Tobacco Type: Cigarettes Age Started Using Tobacco: 16; Age Quit Using Tobacco: 27; packs per day: 0.5; Cigarettes Per Day: QUIT ~45 YRS AGO; Second Hand Exposure: No; Do You Dip or Chew Tobacco: No; Hx Alcohol Use: Yes Alcohol type: beer Hx Substance Use: No Preferred Language: Haitian Communication Ability: Effective News Operations Manager Required: No Beliefs That Will Affect Care: None marital status: Current Living Situation: Spouse current occupational status: retired Other Information That Helps Us Care for You: No Feels Safe at Home: Yes Safety Concerns: Feels Safe At This Time Dental Care, Regularly: Yes Seatbelt Use: always Sunscreen Use: No Assistive Devices: Cane, CPAP, Glasses and Hearing Aid - Bilateral Allergies Allergies Allergy/AdvReac Type Severity Reaction Status Date / Time No Known Allergies Allergy NONE Verified 06/10/25 08:15 Home Meds Home Medications Medication Instructions Recorded Confirmed vit C 250 mg-vit E 90 mg-zinc 40 1 tab PO QAM 08/13/20 06/18/25 mg-copper 1 mo-skpuvl-iujrey capsule (PreserVision AREDS-2) [id number] 1 tab PO DAILY 01/04/23 06/18/25 tablet (Multivitamin 50 Plus tablet) ferrous sulfate 325 mg (65 mg 325 mg PO DAILY 07/10/24 06/18/25 iron) tablet atorvastatin 80 mg tablet 80 mg PO QPM 06/18/25 06/18/25 cholecalciferol (vitamin D3) 25 25 mcg PO QAM 06/18/25 06/18/25 mcg (1,000 unit) capsule cyanocobalamin (vitamin B-12) 1,000 mcg PO QAM 06/18/25 06/18/25 1,000 mcg capsule empagliflozin 25 mg tablet 25 mg PO QAM 06/18/25 06/18/25 fluticasone propionate 50 2 spray intranasal DAILY PRN 06/18/25 06/18/25 mcg/actuation nasal Congestion spray,suspension furosemide 40 mg tablet 40 mg PO QAM 06/18/25 06/18/25 terazosin 5 mg capsule 5 mg PO QPM 06/18/25 06/18/25 Previous Rx's Medication Instructions Recorded blood sugar diagnostic (OneTouch #50 ea 08/13/20 Verio test strips) blood-glucose meter (OneTouch #1 ea 08/13/20 Verio Flex Start kit) celecoxib 50 mg capsule 50 - 100 mg (1 - 2 x 50 mg) PO 04/09/24 DAILY PRN pain #180 caps tadalafil 20 mg tablet 20 mg PO DAILY PRN sexual activity 04/09/24 #14 tabs losartan 25 mg tablet 25 mg PO BID #180 tabs 08/23/24 nitroglycerin 0.4 mg sublingual 0.4 mg sublingual Q5M PRN chest 09/09/24 tablet pain #30 tabs metformin 500 mg tablet,extended 500 mg PO BID #180 tabs 09/27/24 release 24 hr apixaban 5 mg tablet (Eliquis) 5 mg PO BID #180 tabs 11/14/24 glipizide 2.5 mg tablet, extended 2.5 mg PO BID #180 tabs 01/14/25 release 24 hr Results & Data (ED) Vital Signs Vital Signs - 24 hr 06/18/25 13:58 06/18/25 13:58 06/18/25 14:08 Temperature 36.8 C Temperature Source Oral Pulse Rate 60 56 L Pulse Rate from SpO2 Sensor Respiratory Rate 20 20 Blood Pressure 145/91 H Blood Pressure Mean 109 Pulse Oximetry 97 97 Oxygen Delivery Method Room Air Room Air Room Air Sepsis Recent Fever Within 48 Hours No Sepsis New/Unexplained Change in Mental Status N/A Sepsis Action Taken by Nursing No Action Required Oxygen Flow Rate - Titration 97 06/18/25 14:15 06/18/25 14:15 06/18/25 14:21 Temperature Temperature Source Pulse Rate 61 64 53 L Pulse Rate from SpO2 Sensor 63 53 L Respiratory Rate 15 15 Blood Pressure Blood Pressure Mean Pulse Oximetry 97 97 Oxygen Delivery Method Sepsis Recent Fever Within 48 Hours Sepsis New/Unexplained Change in Mental Status Sepsis Action Taken by Nursing Oxygen Flow Rate - Titration 06/18/25 14:30 06/18/25 15:00 06/18/25 15:00 Temperature Temperature Source Pulse Rate 53 L Pulse Rate from SpO2 Sensor Respiratory Rate 15 Blood Pressure 127/66 135/73 135/73 Blood Pressure Mean 89 82 82 Pulse Oximetry 97 Oxygen Delivery Method Sepsis Recent Fever Within 48 Hours Sepsis New/Unexplained Change in Mental Status Sepsis Action Taken by Nursing Oxygen Flow Rate - Titration 06/18/25 15:09 06/18/25 15:15 06/18/25 15:24 Temperature Temperature Source Pulse Rate 63 59 L 56 L Pulse Rate from SpO2 Sensor 62 58 L 55 L Respiratory Rate 18 17 16 Blood Pressure 135/73 Blood Pressure Mean 93 Pulse Oximetry 98 96 98 Oxygen Delivery Method Sepsis Recent Fever Within 48 Hours Sepsis New/Unexplained Change in Mental Status Sepsis Action Taken by Nursing Oxygen Flow Rate - Titration 06/18/25 15:30 06/18/25 15:30 06/18/25 15:30 Temperature Temperature Source Pulse Rate Pulse Rate from SpO2 Sensor Respiratory Rate Blood Pressure 143/73 H 143/73 H 143/73 H Blood Pressure Mean 109 109 109 Pulse Oximetry Oxygen Delivery Method Sepsis Recent Fever Within 48 Hours Sepsis New/Unexplained Change in Mental Status Sepsis Action Taken by Nursing Oxygen Flow Rate - Titration 06/18/25 15:30 06/18/25 15:30 06/18/25 15:48 Temperature Temperature Source Pulse Rate 49 L 49 L Pulse Rate from SpO2 Sensor 49 L 49 L Respiratory Rate 13 19 Blood Pressure 143/73 H Blood Pressure Mean 109 Pulse Oximetry 98 97 Oxygen Delivery Method Sepsis Recent Fever Within 48 Hours Sepsis New/Unexplained Change in Mental Status Sepsis Action Taken by Nursing Oxygen Flow Rate - Titration 06/18/25 15:51 06/18/25 16:00 06/18/25 16:00 Temperature Temperature Source Pulse Rate 53 L Pulse Rate from SpO2 Sensor 53 L Respiratory Rate 12 Blood Pressure 122/68 122/68 Blood Pressure Mean 78 78 Pulse Oximetry 96 Oxygen Delivery Method Sepsis Recent Fever Within 48 Hours Sepsis New/Unexplained Change in Mental Status Sepsis Action Taken by Nursing Oxygen Flow Rate - Titration 06/18/25 16:00 06/18/25 16:12 06/18/25 16:21 Temperature Temperature Source Pulse Rate 51 L 57 L Pulse Rate from SpO2 Sensor 51 L 57 L Respiratory Rate 19 19 Blood Pressure 122/68 Blood Pressure Mean 78 Pulse Oximetry 96 98 Oxygen Delivery Method Sepsis Recent Fever Within 48 Hours Sepsis New/Unexplained Change in Mental Status Sepsis Action Taken by Nursing Oxygen Flow Rate - Titration Laboratory Data Attestation: I reviewed the patient's lab results. 06/18/25 14:05 06/18/25 14:05 Lab Results 06/18/25 06/18/25 Range/Units 14:05 15:55 WBC 9.40 (4.8-10.8) K/ul RBC 4.81 (4.70-6.10) M/uL Hgb 14.7 (14.0-18.0) g/dl Hct 44.3 (42.0-52.0) % MCV 92.1 (80.0-100.0) fL MCH 30.6 (25.0-34.0) pg MCHC 33.2 (32.0-36.0) g/dL RDW Std Deviation 46.6 H (36.4-46.3) fL RDW Coeff of Chai 13.7 (11.5-14.5) % Plt Count 188 (130-400) K/uL MPV 10.8 (9.4-12.4) fL Immature Gran % (Auto) 0.4 % Neut % (Auto) 65.6 % Lymph % (Auto) 20.5 % [place] % (Auto) 9.7 % Eos % (Auto) 2.8 % Baso % (Auto) 1.0 % Neut # (Auto) 6.17 (1.40-6.50) K/uL Lymph # (Auto) 1.93 (1.20-3.40) K/uL [place] # (Auto) 0.91 H (0.11-0.59) K/uL Eos # (Auto) 0.26 (0.00-0.50) K/uL Baso # (Auto) 0.09 (0.00-0.20) K/uL Immature Gran # (Auto) 0.04 (0.01-0.20) K/uL PT 11.5 (9.0-12.0) Seconds INR 1.1 (0.9-1.1) APTT 28 (21-31) Seconds PTT Ratio 1.0 Sodium 141 (136-145) mmol/L Potassium 3.9 (3.5-5.1) mmol/L Chloride 107 (98-107) mmol/L Carbon Dioxide 27 (21-32) mmol/L Anion Gap 7 (3-11) BUN 31 H (6-23) mg/dl Creatinine 1.41 H (0.6-1.4) mg/dl Est Cr Clr Drug Dosing Not Reportable eGFR 50.06 BUN/Creatinine Ratio 22.0 H (10-20) Glucose 168 H (70-99(Fasting)) mg/dl Calcium 9.1 (8.6-10.3) mg/dl Phosphorus 2.6 (2.5-4.9) mg/dl Magnesium 2.1 (1.7-2.4) mg/dl Total Bilirubin 0.6 (0.2-1.0) mg/dl AST 29 (13-39) U/L ALT 19 (7-52) U/L Alkaline Phosphatase 99 (34-104) U/L Troponin I High Sens 850.3 H* 858.5 H* (0-20) pg/ml B-Natriuretic Peptide 160 H (0-100) pg/ml Total Protein 6.8 (6.0-8.3) gm/dl Albumin 3.6 (3.4-5.0) gm/dl Globulin 3.2 (2.5-4.0) gm/dl Albumin/Globulin Ratio 1.1 (0.9-2) Lipase 48 (11-82) U/L Procalcitonin 0.03 (0-0.5) ng/ml TSH 1.978 (0.300-4.500) uIu/ml Administered Medications Atorvastatin Calcium (Atorvastatin 40 Mg Tab) 80 mg PO QPM SARAH Stop: 07/18/25 20:59 Last Admin: 06/18/25 20:44 Dose: 80 mg Documented By: DAR Heparin Sodium/Dextrose (Heparin 70317 Unit/500 Ml D5w) 25,000 units in 500 mls @ 20 mls/hr IV .Q24H SARAH; Protocol Stop: 07/18/25 20:59 Last Admin: 06/18/25 20:44 Dose: 1,000 units/hr, 20 mls/hr Documented By: DAR Co-signed By: HANK Insulin Aspart (Insulin Aspart Per Unit Charge) 0 units SC ACHS SARAH Stop: 07/18/25 20:59 Last Admin: 06/18/25 20:21 Dose: Not Given Documented By: DAR Losartan Potassium (Losartan Potassium 25 Mg Tab) 25 mg PO BID SARAH Stop: 07/18/25 20:59 Last Admin: 06/18/25 20:45 Dose: 25 mg Documented By: DAR Terazosin HCl (Terazosin Hcl 5 Mg Cap) 5 mg PO QPM SARAH Stop: 07/18/25 20:59 Last Admin: 06/18/25 20:44 Dose: 5 mg Documented By: DAR Discontinued Medications Aspirin (Aspirin Chew 324 Mg) 324 mg PO NOW STA Stop: 06/18/25 15:27 Last Admin: 06/18/25 15:40 Dose: 324 mg Documented By: CELESTINO Furosemide (Furosemide Inj 20 Mg/2 Ml Vial) 20 mg IV NOW STA Stop: 06/18/25 17:19 Last Admin: 06/18/25 17:31 Dose: 20 mg Documented By: CTK Imaging Data Radiologist's Impression: Chest X-Ray 06/18/25 14:08 XR chest 1V portable CLINICAL HISTORY: Chest pain, nonspecific COMPARISON STUDY: 08/07/2020 FINDINGS: Stable cardiomegaly with mild pulmonary vascular congestion. No consolidation or pleural effusion. No pneumothorax. IMPRESSION: Mild CHF. ACT 112: Negative or not required by law. Electronically signed by: Wade Mccord M.D. 06/18/2025 2:26 PM Discharge Plan Visit Data Chief Complaint: Shortness of Breath/Dyspnea Stated Complaint: SOB ED Provider: Freddy Mccollum Discharge Problem: Unstable angina, Dyspnea on exertion, Elevated troponin Patient Disposition: Admitted As Inpatient Condition: Serious Discharge Instructions Interventions: ED Discharge Assessment Last Done: 06/18/25 17:51
[2025-06-18] MEDS: ASPIRIN CHEW 324 MG PO STA (15:40)
--- NOTE | 2025-06-18 15:44 | Electrocardiogram Report ---
Test Reason : Blood Pressure : */* mmHG Vent. Rate : 67 BPM Atrial Rate : 67 BPM P-R Int : 228 ms QRS Dur : 88 ms QT Int : 392 ms P-R-T Axes : 69 -58 103 degrees QTcB Int : 414 ms Sinus rhythm with 1st degree A-V block Low voltage QRS Left anterior fascicular block Cannot rule out Anterior infarct When compared with ECG of 08-Aug-2020 13:15, Significant changes have occurred Confirmed by Carrillo Warren ([id number]) on 06/18/2025 3:44:01 PM Referred By: REFERRED SELF Confirmed By: Carrillo Warren
--- NOTE | 2025-06-18 16:04 | History & Physical Report ---
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 No episodes of SOB at rest. However, these episodes have been gradual and worsening to the point that they became debilitating on day of arrival #Worsening SESAY | ?NSTEMI v stable angina Patient is chest pain free of time admission Troponin elevated at 850 -> 858; trend q6h to peak EKG on arrival with potential ischemic changes (ST depressions noted in leads II and V6) Aspirin 324 mg p.o. x 1 in the emergency department Echocardiogram ordered, pending Cardiology consult appreciated N.p.o. at midnight for potential cardiac catheterization on 06/19 Patient is normally on apixaban; last taken the morning of 06/18 Will transition to heparin IV at 9 PM on 06/18 for potential cardiac catheterization Nitro PRN for chest pain Continuous telemetry monitoring #CAD s/p CLARIBEL x 3 | H/o anterior wall STEMI in 2019 | Hyperlipidemia | PAF Noted; continue atorvastatin, apixaban Not currently on a beta-elva or antiplatelet Will defer beta-elva due to bradycardia Initiate aspirin 81 mg daily Lipid panel on 06/09 revealed the following: Cholesterol 59, Triglycerides 43, LDL 16, VLDL 9, HDL 34 #Acute HFpEF Suspect there could be a component of acute heart failure Last echocardiogram on 07/22/2024 revealed LVEF at 55 to 60% with akinesis of the apical septal/anterior/inferior segments Repeat echocardiogram (as above) BNP mildly elevated at 160 on arrival (no prior readings for comparison) Daily weights Strict I&O monitoring Heart healthy, low-sodium diet Will defer increasing Lasix dosage prior to potential cardiac catheterization to maintain kidney function Lasix 20 mg IV x 1, and additional diuresis pending further cardiology eval Continue Lasix 40 mg p.o. daily #T2DM Last A1c at 6.2% on 06/09/2025 Hold glipizide, Jardiance, metformin Lantus 5 u BID while inpatient SSI; with target BSG range 110-140mg/dL, CF 40, carb ratio 12 T2DM diet BSG ACHS Adjust regimen as needed #HTN Continue losartan #MAURICIO CPAP HS Disposition: Admit to PCU telemetry VTE PPx: Initiate heparin IV History of Present Illness Chief Complaint: SOB/dyspnea Primary Care Provider: Nicole Castro MD Mr. Justin is an 79-year-old male with PMH of anterior STEMI 07/2020, CAD s/p CLARIBEL x 3, T2DM, sleep apnea, GERD, asthma, CKD stage III, hypercholesteremia, HFrEF, and HTN. 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 Patient denies chest pain with exertion, but does endorse chest tightness whenever he develops these episodes. He has never had an episode of chest tightness or SOB at rest. 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 Patient feels like he would be able to last "3 minutes" and a stress test. Today, he went to take out his trash, and developed severe SOB on the way back into the house. Patient had to lay down, and reports that his shortness of breath resolved after several minutes. He denies any chest pain, does endorse chest tightness. He reports this feels different than when he had his DE in 2019; he reports he was having multiple episodes of chest pain at that time, and [place] for 3 days (as he initially thought it was GERD). Patient uses a CPAP at night. Patient reports he is chest pain-free at time admission; no SOB at time of admission. Patient reports he took his regular morning medicine today; no recent change in medications. He takes Eliquis for history of A-fib. No PMH of DVT/PE. No sick contacts. Patient does report that he has not been watching his salt intake over the past couple weeks. For instance, he had 2 pieces of pizza and [place] yesterday. While he denies any recent changes in his weight, he does have some swelling in his legs. Patient tries to weigh himself daily, but occasionally misses some days; he reports his weight has been stable. Patient is mildly bradycardic at 59 bpm at time of admission; vitals otherwise stable. ED course: Aspirin 324 mg p.o. x 1 ROS: Patient endorses worsening / progressing SESAY, chest tightness, and tingling in the left hand (intermittently) when he wakes up. Patient denies fever, chills, night-sweats, weight changes, chest pain, SOB at rest, chest palpitations, pleuritic CP, cough, abdominal pain, N/V/D, and changes in urinary/bowel habits. Allergies Allergy/AdvReac Type Severity Reaction Status Date / Time No Known Allergies Allergy NONE Verified 06/10/25 08:15 Home Medications Medication Instructions Recorded Confirmed Type blood sugar diagnostic (OneTouch #50 ea 08/13/20 06/18/25 Rx Verio test strips) blood-glucose meter (OneTouch #1 ea 08/13/20 06/18/25 Rx Verio Flex Start kit) vit C 250 mg-vit E 90 mg-zinc 40 1 tab PO QAM 08/13/20 06/18/25 History mg-copper 1 zq-aexumv-xaxkcg capsule (PreserVision AREDS-2) xbswbnhandvd-ypsfjnzv-vstuuc 1 tab PO DAILY 01/04/23 06/18/25 History tablet (Multivitamin 50 Plus tablet) celecoxib 50 mg capsule 50 - 100 mg (1 - 2 x 50 mg) PO 04/09/24 06/18/25 Rx DAILY PRN pain #180 caps tadalafil 20 mg tablet 20 mg PO DAILY PRN sexual activity 04/09/24 06/18/25 Rx #14 tabs ferrous sulfate 325 mg (65 mg 325 mg PO DAILY 07/10/24 06/18/25 History iron) tablet losartan 25 mg tablet 25 mg PO BID #180 tabs 08/23/24 06/18/25 Rx nitroglycerin 0.4 mg sublingual 0.4 mg sublingual Q5M PRN chest 09/09/24 06/18/25 Rx tablet pain #30 tabs metformin 500 mg tablet,extended 500 mg PO BID #180 tabs 09/27/24 06/18/25 Rx release 24 hr apixaban 5 mg tablet (Eliquis) 5 mg PO BID #180 tabs 11/14/24 06/18/25 Rx glipizide 2.5 mg tablet, extended 2.5 mg PO BID #180 tabs 01/14/25 06/18/25 Rx release 24 hr atorvastatin 80 mg tablet 80 mg PO QPM 06/18/25 06/18/25 History cholecalciferol (vitamin D3) 25 25 mcg PO QAM 06/18/25 06/18/25 History mcg (1,000 unit) capsule cyanocobalamin (vitamin B-12) 1,000 mcg PO QAM 06/18/25 06/18/25 History 1,000 mcg capsule empagliflozin 25 mg tablet 25 mg PO QAM 06/18/25 06/18/25 History fluticasone propionate 50 2 spray intranasal DAILY PRN 06/18/25 06/18/25 History mcg/actuation nasal Congestion spray,suspension furosemide 40 mg tablet 40 mg PO QAM 06/18/25 06/18/25 History terazosin 5 mg capsule 5 mg PO QPM 06/18/25 06/18/25 History Past Med/Surg History Problem List (Updated 06/18/25 @ 19:03 by Jaycee Flores MD) Unstable angina Stable angina Acute heart failure with preserved ejection fraction (HFpEF) Cognitive impairment Aortic regurgitation Obesity (BMI 30-39.9) Primary hypertension Actinic keratosis Seborrheic keratoses, inflamed HFrEF (heart failure with reduced ejection fraction) Recovered EF 50% 11/2020 Previously 35-40% 07/2020 Type 2 diabetes mellitus with microalbuminuria Sun-damaged skin Osteoarthritis CAD (coronary artery disease) (Chronic) STEMI 07/2020 s/p DESx3 to LAD & severe nonculprit disease CKD (chronic kidney disease), stage III Hypercholesterolemia (Acute) Asthma (Chronic) Carpal tunnel syndrome (Acute) Enlarged prostate with lower urinary tract symptoms (LUTS) (Acute) Erectile dysfunction (Acute) Gastroesophageal reflux disease (Acute) Macular degeneration (Acute) Microscopic hematuria (Acute) Shortness of breath (Acute) Sleep apnea (Acute) Ulnar nerve entrapment (Acute) Type 2 diabetes mellitus with obesity Medical History (Updated 06/18/25 @ 19:03 by Jaycee Flores MD) On anticoagulant therapy Degenerative disc disease Chronic back pain BPH (benign prostatic hyperplasia) Diabetes mellitus, type 2 NIDDM Myocardial Infarction 08/03/2020, treated at [facility] and follows with Dr Rowan. Asthma well controlled with inhaler History of COVID-19 12/2020; fatigue and moderate cold symptoms. Atrial flutter with rapid ventricular response MAURICIO on CPAP HLD (hyperlipidemia) Anemia Surgical History (Updated 06/10/25 @ 09:41 by Nicole Castro MD) Hx of cataract surgery Right-January 17, 2023 Left- January 31, 2023 Hx of right cataract extraction History of cardiac cath History of colonoscopy S/P coronary artery stent placement x 3 S/P appendectomy Family History Father Lung disease Mother Heart disease Other No family history of adverse response to anesthesia Denies family history of Ovarian cancer Prostate cancer Breast cancer Colorectal cancer Social History Smoking Status: Former smoker Tobacco Type: Cigarettes Age Started Using Tobacco: 16; Age Quit Using Tobacco: 27; packs per day: 0.5; Cigarettes Per Day: QUIT ~45 YRS AGO; Second Hand Exposure: No; Do You Dip or Chew Tobacco: No; Hx Alcohol Use: Yes Alcohol type: beer Hx Substance Use: No Preferred Language: Indonesian Communication Ability: Effective Phlebotomy Services Representative Required: No Beliefs That Will Affect Care: None marital status: Current Living Situation: Spouse current occupational status: retired Other Information That Helps Us Care for You: No Feels Safe at Home: Yes Safety Concerns: Feels Safe At This Time Dental Care, Regularly: Yes Seatbelt Use: always Sunscreen Use: No Assistive Devices: Cane, CPAP, Glasses and Hearing Aid - Bilateral Review of Systems Review of Systems: See HPI above Physical Exam Physical Exam: General: no acute distress; pleasant affect; at bedside; non-toxic appearing; cooperative; SpO2 96% on RA HEENT: normocephalic, atraumatic; no scleral icterus; PERRLA; vision and hearing grossly intact Neck: supple; ; trachea midline Skin: warm, dry without signs of tenting; no cyanosis; no rashes, bruising, lesions, or erythema noted CV: chest wall NTP; no rashes or bruising appreciated on the chest wall; RRR; S1/S2 normal; no murmurs/rubs/gallops; pulses intact and symmetric at radial, DP, and PT Lungs: no acute respiratory distress; symmetrical chest wall expansion; clear breath sounds across all lung schwartz w/o adventitious sounds; no wheezing ABD: Soft, NTP; BS present; no rebound/guarding; moderate abdominal distention secondary to body habitus MSK: no tics or fasciculations; +2 pitting edema around the ankles bilaterally, nonerythematous Neuro: A&Ox3; normal mood and affect; fluent speech; no focal deficits; patient reports sensation is intact and symmetric in the lower extremities bilaterally assessed via light touch Results & Data Results & Data Vital Signs (Past 12 Hours) Vital Signs Temp Pulse Resp BP Pulse Ox O2 Del Method 06/18/25 15:15 59 L 17 135/73 96 06/18/25 15:09 63 18 98 06/18/25 15:00 135/73 06/18/25 15:00 135/73 06/18/25 14:30 53 L 15 127/66 97 06/18/25 14:21 53 L 15 97 06/18/25 14:15 64 15 97 06/18/25 14:15 61 06/18/25 14:08 56 L 20 97 Room Air 06/18/25 13:58 Room Air 06/18/25 13:58 36.8 C 60 20 145/91 H 97 Room Air Laboratory Results Abnormal lab results 06/18/25 Range/Units 14:05 RDW Std Deviation 46.6 H (36.4-46.3) fL [place] # (Auto) 0.91 H (0.11-0.59) K/uL BUN 31 H (6-23) mg/dl Creatinine 1.41 H (0.6-1.4) mg/dl BUN/Creatinine Ratio 22.0 H (10-20) Glucose 168 H (70-99(Fasting)) mg/dl Troponin I High Sens 850.3 H* (0-20) pg/ml B-Natriuretic Peptide 160 H (0-100) pg/ml Diagnostic Findings Chest X-Ray 06/18/25 14:08 XR chest 1V portable CLINICAL HISTORY: Chest pain, nonspecific COMPARISON STUDY: 08/07/2020 FINDINGS: Stable cardiomegaly with mild pulmonary vascular congestion. No consolidation or pleural effusion. No pneumothorax. IMPRESSION: Mild CHF. ACT 112: Negative or not required by law. Electronically signed by: Wade Mccord M.D. 06/18/2025 2:26 PM ECG Additional Comments: ECG on 06/18 revealed sinus rhythm with first-degree AV block; may exhibit ST depressions in leads II and V6 when compared to most recent EKG on 06/10 T wave inversions were present in aVL on 06/10 Code Status & VTE Plan Code Status Full code VTE Prophylaxis Plan VTE Prophylaxis will be ordered: Yes Supervising Physician Co-Signing Physician Notes REUBEN Macias Note: I personally saw and examined the patient. I verified all andrade points and agree with REUBEN Snow with the following exceptions and/or additions: S-this patient is an 79-year-old male with a history of CAD s/p stents, HFrEF now improved, DM2, HTN, obesity, CKD stage III, HLD, asthma, MAURICIO who is here with progressively worsening chest pressure and dyspnea on exertion of the last 3 weeks. He has noticed some increased leg swelling and is also battling a left toe infection treated with antibiotics being seen by podiatry. He feels well when he sits down and rests. His troponin was elevated 850 on arrival. History and ROS otherwise reviewed as above O- Vitals reviewed Gen: AAOx3, NAD HEENT: Anicteric sclerae, EOMI CV: RRR no mgr nl S1S2 Pulm: Diminished at the lung bases but no wheezes crackles or rhonchi Ext: Trace pitting edema of the legs bilaterally, left middle toe with edema, mild erythema, and large callus on end of toe Skin: No rashes, warm/dry Neuro: Full strength throughout CBC, BMP, LFTs, troponin, PT/PTT/INR, UA,, CXR, and ECG reviewed A/T-65-lllo-old male with history noted as above here with unstable anginal equivalent and NSTEMI. Plan to admit, start heparin drip tonight, hold home Eliquis, start aspirin, continue statin. Plan for likely cardiac catheterization tomorrow, make n.p.o. after midnight, appreciate cardiology consultation With some acute on chronic HFpEF as well with elevated BNP, increased lower extremity edema and dyspnea on exertion, CHF on CXR-give Lasix 20 Mg IV x 1 now, continue home Lasix 40 Mg p.o. once daily and await cardiac catheterization to assess further volume status PG Care Time/CCT Total # of Minutes Spent Total Time Spent with Patient: Total time spent is greater than 50% in coordination of care (as documented) at patient's floor/unit and/or counseling patient: Coding [place] [address] INT INP/OBS CARE MIN Patient Type Established Medical Decision Making High Complexity Diagnoses Acute heart failure with preserved ejection fraction (HFpEF) I50.31 Coronary artery disease involving [place] coronary artery of [place] heart without angina pectoris I25.10 Associated angina: without angina Coronary Disease-Associated Artery/Lesion type: [place] artery [place] vs. transplanted heart: [place] heart Obstructive sleep apnea syndrome G47.33 Sleep apnea type: obstructive Type 2 diabetes mellitus with microalbuminuria E11.29; R80.9 Unstable angina I20.0 (2) CAD (coronary artery disease) Associated angina: without angina Coronary Disease-Associated Artery/Lesion type: [place] artery [place] vs. transplanted heart: [place] heart Qualified Code(s): I25.10 - Atherosclerotic heart disease of [place] coronary artery without angina pectoris (3) Sleep apnea Sleep apnea type: obstructive Qualified Code(s): G47.33 - Obstructive sleep apnea (adult) (pediatric)
[2025-06-18 17:27] LABS: Appearance Urine Clear (Clear); Bacteria Urine Automated None Seen (None Seen); Cast Urine Automated 0-2 /lpf (0-2); Epithelial Cell Urine Auto 0-2 /hpf (0-2); Glucose Urine UA 3+ (Negative); RBC Urine Automated 0-2 /hpf (0-2); WBC Urine Automated 0-5 /hpf (0-5)
[2025-06-18] MEDS: FUROSEMIDE INJ 20 MG/2 ML VIAL IV STA (17:31)
[2025-06-18] MEDS ORDERED: GLUCAGON FOR INJ 1 MG VIAL SQ PRN (18:15)
[2025-06-18] MEDS ORDERED: ACETAMINOPHEN 325 MG TAB PO PRN (18:15)
[2025-06-18] MEDS ORDERED: GLUCOSE 10 TAB/TUBE PO PRN (18:15)
[2025-06-18] MEDS ORDERED: NITROGLYCERIN SL 0.4 MG/TAB TAB SL PRN (18:15)
[2025-06-18] MEDS ORDERED: GLUCOSE 40% GEL 15 GM TUBE PO PRN (18:15)
[2025-06-18] MEDS ORDERED: DEXTROSE 50% 50 ML SYRINGE IV PRN (18:15)
[2025-06-18] MEDS ORDERED: CARBOHYDRATES FOR HYPOGLYCEMIA PO PRN (18:15)
[2025-06-18 19:38] LABS: Partial Thromboplastin Time 28 Seconds (21-31)
[2025-06-18] MEDS: INSULIN ASPART PER UNIT CHARGE SC SCH (20:21)
[2025-06-18] MEDS: TERAZOSIN HCL 5 MG CAP PO SCH (20:44)
[2025-06-18] MEDS: ATORVASTATIN 40 MG TAB PO SCH (20:44)
[2025-06-18] MEDS: HEPARIN 25000 UNIT/500 ML D5W 25,000 UNITS/500 ML BAG IV SCH (20:44)
[2025-06-18] MEDS: LOSARTAN POTASSIUM 25 MG TAB PO SCH (20:45)
[2025-06-18] MEDS ORDERED: Heparin IV Adult Wt-Based Low-Dose *NO* INITIAL Bolus Protocol IV SCH (21:00)
[2025-06-19 03:38] LABS: Hematocrit (blood only) 40.4 % (42.0-52.0); Hemoglobin 13.4 g/dl (14.0-18.0); Immature Granulocytes # (auto) 0.03 K/uL (0.01-0.20); Immature Granulocytes % (auto) 0.4 %; Mean Corpuscular Hemoglobin 30.5 pg (25.0-34.0); Mean Corpuscular Volume 92.0 fL (80.0-100.0); Platelet Count 181 K/uL (130-400); RDW Standard Deviation 46.7 fL (36.4-46.3); Red Blood Count 4.39 M/uL (4.70-6.10); White Blood Count 8.37 K/ul (4.8-10.8)
[2025-06-19 03:52] LABS: Anion Gap 5.0 (3-11); Blood Urea Nitrogen 28.0 mg/dl (6-23); Calcium 8.5 mg/dl (8.6-10.3); Carbon Dioxide 28.0 mmol/L (21-32); Chloride 107.0 mmol/L (98-107); Creatinine Clr Calc Pharmacy 55.4 ml/min; Glucose 95.0 mg/dl (70-99(Fasting)); Potassium 3.6 mmol/L (3.5-5.1); Sodium 140.0 mmol/L (136-145)
[2025-06-19 04:04] LABS: ANTI-Xa, UFH(UnfractionatedHep 0.59 IU/ml (0.3-0.7)
[2025-06-19] MEDS ORDERED: Nursing to Pharmacy Communication SCH ×2 (07:45→14:45)
[2025-06-19] MEDS: INSULIN ASPART PER UNIT CHARGE SC SCH ×2 (09:08→17:04)
[2025-06-19] MEDS: LANTUS PER UNIT CHARGE SQ SCH (09:09)
[2025-06-19] MEDS: LACTATED RINGER'S 1,000 ML IV SCH (09:24)
[2025-06-19] MEDS: FUROSEMIDE 40 MG TAB PO SCH (09:25)
[2025-06-19] MEDS: ASPIRIN 81 MG ECTAB PO SCH (09:25)
--- NOTE | 2025-06-19 09:25 | Hospitalist Progress Note ---
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 No episodes of SOB at rest. However, these episodes have been gradual and worsening to the point that they became debilitating on day of arrival #Worsening SESAY | ?NSTEMI v unstable angina Patient is chest pain free of time admission Troponin trend: 850 -> 858 -> 1518; trend q6h to peak EKG on arrival with potential ischemic changes (ST depressions noted in leads II and V6) Aspirin 324 mg p.o. x 1 in the emergency department Echocardiogram completed on the morning of 06/19; formal read still pending Cardiology consult appreciated Patient underwent catheterization on 06/[address] Rowan VSS postoperatively Initiate Brilinta 90 mg p.o. BID D/c heparin Eventually transition back to apixaban on discharge Nitro PRN for chest pain Continuous telemetry monitoring #CAD s/p CLARIBEL x 3 | H/o anterior wall STEMI in 2019 | Hyperlipidemia | PAF Noted; continue atorvastatin, apixaban Not currently on a beta-elva or antiplatelet Will defer beta-elva due to bradycardia Initiate aspirin 81 mg daily Lipid panel on 06/09 revealed the following: Cholesterol 59, Triglycerides 43, LDL 16, VLDL 9, HDL 34 #Acute HFpEF Suspect there could be a component of acute heart failure Last echocardiogram on 07/22/2024 revealed LVEF at 55 to 60% with akinesis of the apical septal/anterior/inferior segments Repeat echocardiogram (as above) BNP mildly elevated at 160 on arrival (no prior readings for comparison) Daily weights Strict I&O monitoring Heart healthy, low-sodium diet Will defer increasing Lasix dosage prior to potential cardiac catheterization to maintain kidney function Lasix 20 mg IV x 1 in the ED Continue Lasix 40 mg p.o. daily We will plan to adjust regimen as needed following cardiac catheterization on 06/20 #T2DM Last A1c at 6.2% on 06/09/2025 Hold glipizide, Jardiance, metformin Lantus 5 u BID while inpatient SSI; with target BSG range 110-140mg/dL, CF 40, carb ratio 12 T2DM diet BSG ACHS Adjust regimen as needed #HTN Continue losartan #MAURICIO CPAP HS Disposition: Continued stay on PCU telemetry VTE PPx: DAPT Admission and Anticipated Discharge Date Admission Date: June 18, 2025 Supervising Physician Co-Signing Physician Notes Attending Attestation - Chart reviewed, care plan d/w PA [place] nSow. I agree w/ the andrade components of his documentation. Appreciate cardiology assistance by Dr Rowan. Cath report reviewed in its entirety. Cain Yeung MD Subjective Mr. Justin is in good spirits this morning. He had some difficulty sleeping last night due to being woken up several times with staff coming into the room. However, he reports he has been ambulating to the bathroom without dyspnea on exertion this morning. No episodes of chest pain overnight. He denies any chest tightness. No SOB at rest. Overall, he feels fairly asymptomatic at this time. ROS: Patient denies fever, chills, night sweats, headache, dizziness/lightheadedness with ambulation, chest pain, chest palpitations, pleuritic CP, SOB, SESAY, cough, shoulder or jaw pain, numbness or tingling going down the arms, abdominal pain, N/V/D, changes in urinary bowel habits, or blood in the urine or stool. Review of Systems Review of Systems: See HPI above Physical Exam Physical Exam: General: no acute distress; pleasant affect; and son at bedside; non-toxic appearing; cooperative; SpO2 96% on RA HEENT: normocephalic, atraumatic; no scleral icterus; PERRLA; vision and hearing grossly intact Neck: supple; ; trachea midline Skin: warm, dry without signs of tenting; no cyanosis; no rashes, bruising, lesions, or erythema noted CV: chest wall NTP; no rashes or bruising appreciated on the chest wall; RRR; pulses intact and symmetric at radial, DP, and PT Lungs: no acute respiratory distress; symmetrical chest wall expansion; clear breath sounds across all lung schwartz w/o adventitious sounds; no wheezing ABD: Soft, NTP; BS present; no rebound/guarding; moderate abdominal distention secondary to body habitus MSK: no tics or fasciculations; +1 pitting edema around the ankles bilaterally, nonerythematous (with some improvement from prior); 5/5 shaper and presser strength bilaterally Neuro: A&Ox3; normal mood and affect; fluent speech; no focal deficits; patient reports sensation is intact and symmetric in the lower extremities bilaterally assessed via light touch Results & Data Results & Data Vital Signs (Past 12 Hours) Vital Signs Temp Pulse Pulse Resp BP Pulse Ox O2 Del Method 06/19/25 07:33 36.5 C 51 L 18 132/77 94 Room Air 06/19/25 03:19 36.7 C 51 L 20 107/56 L 92 Room Air 06/18/25 23:30 Room Air 06/18/25 23:03 36.7 C 48 L 22 118/68 94 Room Air 06/18/25 21:42 64 PG Care Time/CCT Total # of Minutes Spent Total Time Spent with Patient: Total time spent is greater than 50% in coordination of care (as documented) at patient's floor/unit and/or counseling patient: Coding [place] [address] SUB INP/OBS CARE 3/50MIN Patient Type Established Medical Decision Making High Complexity Diagnoses Acute heart failure with preserved ejection fraction (HFpEF) I50.31 Coronary artery disease involving [place] coronary artery of [place] heart without angina pectoris I25.10 Associated angina: without angina Coronary Disease-Associated Artery/Lesion type: [place] artery [place] vs. transplanted heart: [place] heart Obstructive sleep apnea syndrome G47.33 Sleep apnea type: obstructive Type 2 diabetes mellitus with microalbuminuria E11.29; R80.9 Unstable angina I20.0 (2) CAD (coronary artery disease) Associated angina: without angina Coronary Disease-Associated Artery/Lesion type: [place] artery [place] vs. transplanted heart: [place] heart Qualified Code(s): I25.10 - Atherosclerotic heart disease of [place] coronary artery without angina pectoris (3) Sleep apnea Sleep apnea type: obstructive Qualified Code(s): G47.33 - Obstructive sleep apnea (adult) (pediatric)"
--- NOTE | 2025-06-19 11:48 | Pre Anesthesia Assessment ---
Date of Service June 19, 2025 Pre Sedation Assessment Vital Signs Temp Pulse Pulse Resp BP BP Pulse Ox 06/19/25 11:19 67 14 129/72 92 06/19/25 10:44 97.9 F 106 H 18 125/87 96 06/19/25 08:00 47 L 06/19/25 07:33 97.7 F 51 L 18 132/77 94 06/19/25 03:19 98.1 F 51 L 20 107/56 L 92 06/18/25 23:30 06/18/25 23:03 98.1 F 48 L 22 118/68 94 06/18/25 21:42 64 06/18/25 20:00 06/18/25 19:15 97.5 F L 66 18 120/60 93 06/18/25 19:00 60 06/18/25 18:15 06/18/25 18:15 97.9 F 59 L 20 141/73 H 97 06/18/25 17:51 53 L 20 135/70 95 06/18/25 17:46 53 L 20 135/70 95 06/18/25 16:57 52 L 18 155/78 H 96 06/18/25 16:21 57 L 19 98 06/18/25 16:12 51 L 19 96 06/18/25 16:00 122/68 06/18/25 16:00 122/68 06/18/25 16:00 122/68 06/18/25 15:51 53 L 12 96 06/18/25 15:48 49 L 19 97 06/18/25 15:30 49 L 13 98 06/18/25 15:30 143/73 H 06/18/25 15:30 143/73 H 06/18/25 15:30 143/73 H 06/18/25 15:30 143/73 H 06/18/25 15:24 56 L 16 98 06/18/25 15:15 59 L 17 135/73 96 06/18/25 15:09 63 18 98 06/18/25 15:00 135/73 06/18/25 15:00 135/73 06/18/25 14:30 53 L 15 127/66 97 06/18/25 14:21 53 L 15 97 06/18/25 14:15 64 15 97 06/18/25 14:15 61 06/18/25 14:08 56 L 20 97 06/18/25 13:58 06/18/25 13:58 98.2 F 60 20 145/91 H 97 O2 Del Method 06/19/25 11:19 Room Air 06/19/25 10:44 Room Air 06/19/25 08:00 06/19/25 07:33 Room Air 06/19/25 03:19 Room Air 06/18/25 23:30 Room Air 06/18/25 23:03 Room Air 06/18/25 21:42 06/18/25 20:00 Room Air 06/18/25 19:15 Room Air 06/18/25 19:00 06/18/25 18:15 Room Air 06/18/25 18:15 Room Air 06/18/25 17:51 Room Air 06/18/25 17:46 Room Air 06/18/25 16:57 Room Air 06/18/25 16:21 06/18/25 16:12 06/18/25 16:00 06/18/25 16:00 06/18/25 16:00 06/18/25 15:51 06/18/25 15:48 06/18/25 15:30 06/18/25 15:30 06/18/25 15:30 06/18/25 15:30 06/18/25 15:30 06/18/25 15:24 06/18/25 15:15 06/18/25 15:09 06/18/25 15:00 06/18/25 15:00 06/18/25 14:30 06/18/25 14:21 06/18/25 14:15 06/18/25 14:15 06/18/25 14:08 Room Air 06/18/25 13:58 Room Air 06/18/25 13:58 Room Air Cardiovascular + regular rate Respiratory + respiratory effort normal Pre-Sedation Airway Assessment Smoking Status: Former smoker Hx Sleep Apnea: No Hx Difficult Intubation: No Short, Thick Neck: No Thyromental Distance: > or= 3.5 Finger Breadths Oral Cavity: + WNL Mallampati Class: III ASA: ASA3 NPO Status Date of Last Intake of Fluids: 06/18/25 Time of Last Intake of Fluids: 18:00 Date of Last Intake of Solid Food: 06/18/25 Time of Last Intake of Solid Foods: 18:00 Procedure Planning Contraindications for Sedation: none Current Medications Reviewed: Yes Notes The planned sedation has been discussed with the patient. Informed Consent was o btained. I have identified the patient, determined the appropriateness of sedation and have assessed the patient immediately prior to the procedure. All medicine(s) and interventions are by my order.
[2025-06-19] MEDS: niCARdipine 2,000 MCG/20 ML SYR ONE (12:57)
[2025-06-19] MEDS: NITROGLYCERIN/D5W 100MCG/ML 20ML SYR ONE (12:57)
[2025-06-19] MEDS: MIDAZOLAM HCL 1 MG/ML 2ML VIAL ONE ×2 (13:20→13:21)
[2025-06-19] MEDS: HEPARIN (PORCINE) 1000 UNIT/ML 10 ML (CATH LAB USE ONLY) ONE (13:20)
--- NOTE | 2025-06-19 13:35 | Post Anesthesia Assessment ---
Date of Service June 19, 2025 Post Sedation Assessment Vital Signs Temp Pulse Pulse Resp BP BP Pulse Ox 06/19/25 11:19 67 14 129/72 92 06/19/25 10:44 97.9 F 106 H 18 125/87 96 06/19/25 08:00 47 L 06/19/25 07:33 97.7 F 51 L 18 132/77 94 06/19/25 03:19 98.1 F 51 L 20 107/56 L 92 06/18/25 23:30 06/18/25 23:03 98.1 F 48 L 22 118/68 94 06/18/25 21:42 64 06/18/25 20:00 06/18/25 19:15 97.5 F L 66 18 120/60 93 06/18/25 19:00 60 06/18/25 18:15 06/18/25 18:15 97.9 F 59 L 20 141/73 H 97 06/18/25 17:51 53 L 20 135/70 95 06/18/25 17:46 53 L 20 135/70 95 06/18/25 16:57 52 L 18 155/78 H 96 06/18/25 16:21 57 L 19 98 06/18/25 16:12 51 L 19 96 06/18/25 16:00 122/68 06/18/25 16:00 122/68 06/18/25 16:00 122/68 06/18/25 15:51 53 L 12 96 06/18/25 15:48 49 L 19 97 06/18/25 15:30 49 L 13 98 06/18/25 15:30 143/73 H 06/18/25 15:30 143/73 H 06/18/25 15:30 143/73 H 06/18/25 15:30 143/73 H 06/18/25 15:24 56 L 16 98 06/18/25 15:15 59 L 17 135/73 96 06/18/25 15:09 63 18 98 06/18/25 15:00 135/73 06/18/25 15:00 135/73 06/18/25 14:30 53 L 15 127/66 97 06/18/25 14:21 53 L 15 97 06/18/25 14:15 64 15 97 06/18/25 14:15 61 06/18/25 14:08 56 L 20 97 06/18/25 13:58 06/18/25 13:58 98.2 F 60 20 145/91 H 97 O2 Del Method 06/19/25 11:19 Room Air 06/19/25 10:44 Room Air 06/19/25 08:00 06/19/25 07:33 Room Air 06/19/25 03:19 Room Air 06/18/25 23:30 Room Air 06/18/25 23:03 Room Air 06/18/25 21:42 06/18/25 20:00 Room Air 06/18/25 19:15 Room Air 06/18/25 19:00 06/18/25 18:15 Room Air 06/18/25 18:15 Room Air 06/18/25 17:51 Room Air 06/18/25 17:46 Room Air 06/18/25 16:57 Room Air 06/18/25 16:21 06/18/25 16:12 06/18/25 16:00 06/18/25 16:00 06/18/25 16:00 06/18/25 15:51 06/18/25 15:48 06/18/25 15:30 06/18/25 15:30 06/18/25 15:30 06/18/25 15:30 06/18/25 15:30 06/18/25 15:24 06/18/25 15:15 06/18/25 15:09 06/18/25 15:00 06/18/25 15:00 06/18/25 14:30 06/18/25 14:21 06/18/25 14:15 06/18/25 14:15 06/18/25 14:08 Room Air 06/18/25 13:58 Room Air 06/18/25 13:58 Room Air Recovery Score Activity: Moves 4 extremities Respiration: Deep Breath/Cough Circulation: +/-20% PreAnes Value Consciousness: Fully Awake Oxygen Saturation: O2 needed for >90% Discharge Sedation Level of Care: Fast Track Phase II
[2025-06-19] MEDS: IODIXANOL (VISIPAQUE) 320 MG/ML 100ML IV ONE (14:23)
[2025-06-19] MEDS: TICAGRELOR 90 MG TAB ONE (14:24)
[2025-06-19 18:04] LABS: Appearance Urine Clear (Clear); Bacteria Urine Automated None Seen (None Seen); Cast Urine Automated 0-2 /lpf (0-2); Epithelial Cell Urine Auto 0-2 /hpf (0-2); Glucose Urine UA 3+ (Negative); RBC Urine Automated >20 /hpf (0-2); WBC Urine Automated 0-5 /hpf (0-5)
--- NOTE | 2025-06-19 18:10 | Cardiac Catheterization ---
[facility] Data: Buffer Nickel Cardiac Status Clinical evaluation leading to the procedure CAD Presenation: Non STEMI Anginal Classification: CCS IV Diagnostic Physicians Name: Ayan Rowan MD Closure Device Recommendations: Medical Therapy and/or Counseling Cardiac Cath Procedure Full Procedure Date June 19, 2025 Pre-Procedure Diagnosis Pre-Procedure Diagnosis: Non STEMI AUC Score AUC Score: 8 Post-Procedure Diagnosis Post-Procedure Diagnosis: Severe CAD and Successful PCI Procedure(s) Performed Procedure(s) Performed: Coronary Angiography, Left Heart Cath, Drug Eluting Stent and IVUS Hog Cooler Ayan Rowan MD Horizontal Boring Mill Operator(s) Wood Gluer Estimated Blood Loss Estimated Blood Loss: 40 Medication(s) Medication(s): Fentanyl, Heparin, Lidocaine 1%, Nicardipine, Nitroglycerin and Versed Medication(s): Ticagrelor Summary of Findings Indication: NSTEMI Access: 6 Fr right radial artery Catheters: [place], EBU 3.5 guide Findings: LM -medium caliber, mild diffuse disease LAD -40% ostial stenosis, proximal to mid stents widely patent without significant ISR. Latemid stent widely patent. Distal vessel with luminal irregularities and wraps around apex. Jailed large second diagonal with 80% ostial stenosis but SHIRA-3 flow Circumflex -large caliber, acute ostial 98% stenosis with thrombus. Mid and distal vessel luminal irregularities. Small to medium caliber OM2 with 90% ostial stenosis RCA -dominant, medium caliber, diffuse proximal disease up to 30%, angulated latemid segment with 40% stenosis. Distal luminal regularities. RPDA without significant disease. LVEDP -11 -- PCI -- Antithrombotic therapy: Heparin, ticagrelor Procedure: Left main cannulated with EBU 3.5 guide Pre-procedure flow SHIRA 3 [place] wire placed into LAD Rdz IVUS catheter placed across left main. Pullback revealed moderate ostial LAD disease, mild to moderate noncalcified mid left main disease. Job Training Supervisor 50 wire passed across ostial circumflex lesion into distal vessel Ostial circumflex lesion predilated with 2.5 compliant balloon IVUS of circumflex revealed mildly calcified disease with atherosclerotic plaque/thrombus extending back to the ostium Dilated lesion stented with 3.0 x 18 mm Min drug-eluting stent Stent post-dilated with 4.0 noncompliant balloon Repeat IVUS showed well apposed stent but underexpansion proximally Stent further postdilated with 4.5 NC IC vasodilators administered for spasm Post procedure SHIRA 3 flow, stent well expanded with minimal residual stenosis and no apparent cardiac complications. Arterial Closure: TR band Summary: 1. Multivessel coronary artery disease - Acute 98% ostial circumflex. OM2 90% ostial 40% ostial LAD, widely patent proximal to mid and latemid stents. Jailed D2 80% ostial 30% proximal, 40% mid RCA 2. Normal intracardiac filling pressure 3. Successful PCI of ostial/proximal circumflex with single drug-eluting stent (3.0 x 18 mm Xience postdilated with 4.0 and 4.5 NC balloons). Recommendations: To PCU for continued monitoring Loaded with ticagrelor 180 mg in Buffer Nickel Transition to clopidogrel tomorrow morning Triple therapy with clopidogrel, aspirin and Eliquis while hospitalized Long-term dual therapy with clopidogrel and Eliquis for at least 1 year Continue statin, and ASCVD risk factor modification Hemodynamics Rest Ao:: 110/77/90 Final Ao: 107/61/79 LV: 98/11 Recommendations Recommendations: Medical Therapy and/or Counseling Radiation Exposure (mGy) 3542 Contrast (mls) 110 Anesthesia Moderate 6625-8989 Procedural Complication(s) None Disposition Buffer Nickel Holding/Recovery I attest to the content of the Intraoperative Record and any orders documented therein. Any exceptions are noted below. [facility] Card Cath Procedure Codes Cardiac Catheterization Procedure 1: Cardiovascular Cath Procedures: 59761 Coronaries and LHC (+/-LV) Therapeutic Services & Ancillary Procedure 1: Cardiovascular Tx and Anc Procedures: 47654 IV Ultrasound (Coronary or Graft) Procedure 2: Cardiovascular Tx and Anc Procedures: 58018 IV Ultrasound Ea addl vessel Moderate Sedation Procedure 1: Sedation/Anesthesia: 67870 Mod Sedation by the same physician;Init15 Min Child Age 5 & Up Procedure 2: Sedation/Anesthesia: 20026 Mod Sedation by the same physician; Ea [id number] Minutes Stenting Procedure 1: Cardiovascular Stent Procedures: 10415 Perc transcatheter placement of intracoronary stent(s), with ang PG Care Time/CCT Total # of Minutes Spent Total Time Spent with Patient: Total time spent is greater than 50% in coordination of care (as documented) at patient's floor/unit and/or counseling patient:
[2025-06-19 19:31] VITALS: RESP 16
--- NOTE | 2025-06-19 21:00 | Cardiology Consultation ---
Date of Consultation June 19, 2025 Assessment & Plan (1) NSTEMI (non-ST elevated myocardial infarction): Acute 98% ostial circumflex post CLARIBEL Widely patent LAD stents. Stable jailed D2, OM2 stenosis and mild to moderate RCA 2. ICMEF 40-45%, history of HFpEF 3. Paroxysmal AF 4. Mild to moderate MR 5. Type 2 diabetes 6. Hematuriahistory of BPH 7. Sinus bradycardiaintermittent Post successful PCI of ostial circumflex stenosis. Chest pain-free post procedure No signs of heart failure on exam. No apparent access site complications. Does have reported new hematuria postprocedure. Plan on continued monitoring on telemetry, ASCVD secondary prevention and GDMT for ICM. Initially loaded with ticagrelorwill transition to clopidogrel in the morning, load with 600 mg. Plan to resume Eliquis tomorrow if hematuria stable If Eliquis tolerated well discontinue aspirin and continue with dual therapy with Eliquis/clopidogrel long-term Continue home losartan. Resume SGLT2 when able Off beta-elva in the setting of intermittent sinus bradycardia to 40s, retry as able Continue maintenance Lasix 40 mg daily Continue current statin Will follow. History of Present Illness Attending Physician: Cain Yeung MD History of Present Illness Mr. Rizo is a very pleasant 79-year-old man with a history of CAD post anterior STEMI 07/2020, recovered ICM and paroxysmal atrial fibrillation seen in the setting of ACS. Well-known to me from prior PCI and outpatient visits. Has had progressive exertional dyspnea for the last 3 weeks to the point was occurring with minimal exertion such as taking a shower. No real chest pain. Elevated HS TropI to 1500, subtle lateral ST depression on ECG. Echo showed reduced LV function EF now 40 to 45% with new inferolateral wall motion abnormality. Repeat cardiac catheterization revealed acute 98% ostial circumflex stenosis. LAD stent widely patent. Unchanged OM2, RCA disease. Normal LVEDP. Postprocedure chest pain-free. Did have urinary hesitancy and reports hematuria. Allergies Allergy/AdvReac Type Severity Reaction Status Date / Time No Known Allergies Allergy NONE Verified 06/10/25 08:15 Home Medications Medication Instructions Recorded Confirmed Type blood sugar diagnostic ([place] #50 ea 08/13/20 06/18/25 Rx Verio test strips) blood-glucose meter (OneTouch #1 ea 08/13/20 06/18/25 Rx Verio Flex Start kit) vit C 250 mg-vit E 90 mg-zinc 40 1 tab PO QAM 08/13/20 06/18/25 History mg-copper 1 jp-lbzvce-mbkdsz capsule (PreserVision AREDS-2) oemsemoccglq-fuhwthcq-ihhoam 1 tab PO DAILY 01/04/23 06/18/25 History tablet (Multivitamin 50 Plus tablet) celecoxib 50 mg capsule 50 - 100 mg (1 - 2 x 50 mg) PO 04/09/24 06/18/25 Rx DAILY PRN pain #180 caps tadalafil 20 mg tablet 20 mg PO DAILY PRN sexual activity 04/09/24 06/18/25 Rx #14 tabs ferrous sulfate 325 mg (65 mg 325 mg PO DAILY 07/10/24 06/18/25 History iron) tablet losartan 25 mg tablet 25 mg PO BID #180 tabs 08/23/24 06/18/25 Rx nitroglycerin 0.4 mg sublingual 0.4 mg sublingual Q5M PRN chest 09/09/24 06/18/25 Rx tablet pain #30 tabs metformin 500 mg tablet,extended 500 mg PO BID #180 tabs 09/27/24 06/18/25 Rx release 24 hr apixaban 5 mg tablet (Eliquis) 5 mg PO BID #180 tabs 11/14/24 06/18/25 Rx glipizide 2.5 mg tablet, extended 2.5 mg PO BID #180 tabs 01/14/25 06/18/25 Rx release 24 hr atorvastatin 80 mg tablet 80 mg PO QPM 06/18/25 06/18/25 History cholecalciferol (vitamin D3) 25 25 mcg PO QAM 06/18/25 06/18/25 History mcg (1,000 unit) capsule cyanocobalamin (vitamin B-12) 1,000 mcg PO QAM 06/18/25 06/18/25 History 1,000 mcg capsule empagliflozin 25 mg tablet 25 mg PO QAM 06/18/25 06/18/25 History fluticasone propionate 50 2 spray intranasal DAILY PRN 06/18/25 06/18/25 History mcg/actuation nasal Congestion spray,suspension furosemide 40 mg tablet 40 mg PO QAM 06/18/25 06/18/25 History terazosin 5 mg capsule 5 mg PO QPM 06/18/25 06/18/25 History Patient History Medical History (Updated 06/19/25 @ 22:01 by Ayan Rowan MD) On anticoagulant therapy Degenerative disc disease Chronic back pain BPH (benign prostatic hyperplasia) Diabetes mellitus, type 2 NIDDM Myocardial Infarction 08/03/2020, treated at [facility] and follows with Dr Rowan. Asthma well controlled with inhaler History of COVID-19 12/2020; fatigue and moderate cold symptoms. Atrial flutter with rapid ventricular response MAURICIO on CPAP HLD (hyperlipidemia) Anemia Surgical History (Updated 06/10/25 @ 09:41 by Nicole Castro MD) Hx of cataract surgery Right-January 17, 2023 Left- January 31, 2023 Hx of right cataract extraction History of cardiac cath History of colonoscopy S/P coronary artery stent placement x 3 S/P appendectomy Family History Father Lung disease Mother Heart disease Other No family history of adverse response to anesthesia Denies family history of Ovarian cancer Prostate cancer Breast cancer Colorectal cancer Social History Smoking Status: Former smoker Tobacco Type: Cigarettes Age Started Using Tobacco: 16; Age Quit Using Tobacco: 27; packs per day: 0.5; Cigarettes Per Day: QUIT ~45 YRS AGO; Second Hand Exposure: No; Do You Dip or Chew Tobacco: No; Hx Alcohol Use: Yes Alcohol type: beer Hx Substance Use: No Preferred Language: Albanian Communication Ability: Effective M[employer]ers [employer] Acquisitions Associate Required: No Beliefs That Will Affect Care: None marital status: Current Living Situation: Spouse current occupational status: retired Other Information That Helps Us Care for You: No Feels Safe at Home: Yes Safety Concerns: Feels Safe At This Time Dental Care, Regularly: Yes Seatbelt Use: always Sunscreen Use: No Assistive Devices: Cane and CPAP Review of Systems Review of Systems: All systems reviewed & are unremarkable except as noted in HPI & below Physical Exam Physical Exam: General: Comfortable HEENT: Sclerae anicteric Lungs: Clear to auscultation bilaterally, no crackles or wheezes Cardiac: Regular rate and rhythm, 2 out of 6 systolic ejection murmur Vascular: Right radial artery access site with no ecchymosis, hematoma. Distal pulse and sensation intact. Abdomen: Soft, nontender Extremities: Well perfused, no peripheral edema Neuro: Nonfocal Psych: Alert orient x3, normal affect and mood Results & Data Vital Signs (Past 12 Hours) Vital Signs Temp Pulse Pulse Resp BP BP Pulse Ox 06/19/25 19:54 06/19/25 19:10 97.9 F 60 16 132/67 98 06/19/25 17:15 48 L 06/19/25 15:48 55 L 136/75 95 06/19/25 15:20 51 L 122/73 94 06/19/25 14:50 55 L 143/91 H 94 06/19/25 14:35 69 156/80 H 96 06/19/25 14:20 49 L 126/66 94 06/19/25 14:05 48 L 131/69 94 06/19/25 13:44 60 14 113/65 98 06/19/25 13:35 98 F 52 L 18 113/65 93 06/19/25 11:19 67 14 129/72 92 06/19/25 10:44 97.9 F 106 H 18 125/87 96 O2 Del Method 06/19/25 19:54 Room Air 06/19/25 19:10 Room Air 06/19/25 17:15 06/19/25 15:48 Room Air 06/19/25 15:20 Room Air 06/19/25 14:50 Room Air 06/19/25 14:35 Room Air 06/19/25 14:20 Room Air 06/19/25 14:05 Room Air 06/19/25 13:44 Room Air 06/19/25 13:35 Room Air 06/19/25 11:19 Room Air 06/19/25 10:44 Room Air PG Care Time/CCT Total # of Minutes Spent Total Time Spent with Patient: Total time spent is greater than 50% in coordination of care (as documented) at patient's floor/unit and/or counseling patient: Coding Level of Care Code 39707 INT INP/OBS CARE 3/75MIN Diagnoses NSTEMI (non-ST elevated myocardial infarction) I21.4
--- NOTE | 2025-06-19 21:57 | XCELERA ---
[id number]
[2025-06-20 03:03] VITALS: O2SAT 95
[2025-06-20 07:33] VITALS: PULSE 72; TEMP 97.9
[2025-06-20 09:00] LABS: Hematocrit (blood only) 43.8 % (42.0-52.0); Hemoglobin 14.5 g/dl (14.0-18.0); Immature Granulocytes # (auto) 0.04 K/uL (0.01-0.20); Immature Granulocytes % (auto) 0.5 %; Mean Corpuscular Hemoglobin 30.5 pg (25.0-34.0); Mean Corpuscular Volume 92.2 fL (80.0-100.0); Platelet Count 182 K/uL (130-400); RDW Standard Deviation 46.8 fL (36.4-46.3); Red Blood Count 4.75 M/uL (4.70-6.10); White Blood Count 8.80 K/ul (4.8-10.8)
[2025-06-20] MEDS ORDERED: TICAGRELOR 90 MG TAB PO SCH (09:00)
[2025-06-20] MEDS: CLOPIDOGREL BISULFATE 300 MG TAB PO ONE (09:02)
[2025-06-20] MEDS: APIXABAN 5 MG TABLET PO SCH (09:02)
[2025-06-20 09:14] LABS: Anion Gap 6.0 (3-11); Blood Urea Nitrogen 26.0 mg/dl (6-23); Calcium 8.7 mg/dl (8.6-10.3); Carbon Dioxide 28.0 mmol/L (21-32); Chloride 105.0 mmol/L (98-107); Creatinine Clr Calc Pharmacy 51.8 ml/min; Glucose 150.0 mg/dl (70-99(Fasting)); Potassium 3.7 mmol/L (3.5-5.1); Sodium 139.0 mmol/L (136-145)
--- NOTE | 2025-06-20 11:09 | Electrocardiogram Report ---
Test Reason : Blood Pressure : */* mmHG Vent. Rate : 48 BPM Atrial Rate : 48 BPM P-R Int : 216 ms QRS Dur : 88 ms QT Int : 422 ms P-R-T Axes : 115 -30 106 degrees QTcB Int : 376 ms Sinus bradycardia with 1st degree A-V block Left axis deviation Low voltage QRS Cannot rule out Anterior infarct 03-Aug-2020) Abnormal ECG When compared with ECG of 18-Jun-2025 14:04, Non-specific change in ST segment in Anterior leads Nonspecific T wave abnormality, worse in Lateral leads Confirmed by Carrillo Warren ([id number]) on 06/20/2025 11:09:10 AM Referred By: Ayan Rowan Confirmed By: Carrillo Warren
--- NOTE | 2025-06-20 12:15 | Discharge Summary ---
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 No episodes of SOB at rest. However, these episodes have been gradual and worsening to the point that they became debilitating on day of arrival. Day of discharge 06/20: VSS Patient is happy to report that he has had no episodes of chest pain since the operation.. He was able to get up and ambulate with physical therapy today and reports minimal ESSAY. No SOB at rest. No chest tightness with walking. He is also happy to report that there have been no additional episodes of blood in his urine. Overall, patient is eager to return home today if possible. ROS: Patient endorses mild SESAY. Patient denies fever, chills, night sweats, chest pain, chest palpitations, pleuritic CP, chest tightness, SOB, numbness or tingling in the left arm, pain in the shoulders or jaw, abdominal pain, N/V/D, blood in the urine (resolved), or changes in urinary bowel habits. #NSTEMI Patient is chest pain free of time admission Troponin trend: 850 -> 858 -> 1518; trend q6h to peak EKG on arrival with potential ischemic changes (ST depressions noted in leads II and V6) Aspirin 324 mg p.o. x 1 in the emergency department Echocardiogram completed on the morning of 06/19; formal read still pending Cardiology consult appreciated Patient underwent catheterization on 06/[address] Rowan with the following results: 1. Multivessel coronary artery disease Acute 98% ostial circumflex. OM2 90% ostial 40% ostial LAD, widely patent proximal to mid and latemid stents. Jailed D2 80% ostial 30% proximal, 40% mid RCA 2. Normal intracardiac filling pressure 3. Successful PCI of ostial/proximal circumflex with single drug-eluting stent (3.0 x 18 mm Xience postdilated with 4.0 and 4.5 NC balloons). VSS postoperatively Initiate Plavix 75mg p.o. daily on discharge Patient reports no episodes of chest pain postoperatively He ambulated PT/OT on 06/20 with minimal SESAY Transition back to Eliquis 5 mg p.o. BID Plan to discharge on 06/20 with close PCP/cardiology follow-up #CAD s/p CLARIBEL x 3 | H/o anterior wall STEMI in 2019 | Hyperlipidemia | PAF Noted; continue atorvastatin, apixaban Not currently on a beta-elva due to bradycardia Lipid panel on 06/09 revealed the following: Cholesterol 59, Triglycerides 43, LDL 16, VLDL 9, HDL 34 #HFrEF Echocardiogram on 06/19/2025 revealed LVEF at 40 to 45%; apical akinesis; grade 1 diastolic dysfunction BNP mildly elevated at 160 on arrival (no prior readings for comparison) Daily weights Strict I&O monitoring Heart healthy, low-sodium diet Will defer adjusting Lasix dosage in the setting of cardiac catheterization to maintain kidney function Continue Lasix 40 mg p.o. 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 Admission HPI Per Admitting Provider Mr. Justin is an 79-year-old male with PMH of anterior STEMI 07/2020, CAD s/p CLARIBEL x 3, T2DM, sleep apnea, GERD, asthma, CKD stage III, hypercholesteremia, HFrEF, and HTN. 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 Patient denies chest pain with exertion, but does endorse chest tightness whenever he develops these episodes. He has never had an episode of chest tightness or SOB at rest. 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 Patient feels like he would be able to last "3 minutes" and a stress test. Today, he went to take out his trash, and developed severe SOB on the way back into the house. Patient had to lay down, and reports that his shortness of breath resolved after several minutes. He denies any chest pain, does endorse chest tightness. He reports this feels different than when he had his IA in 2019; he reports he was having multiple episodes of chest pain at that time, and [place] for 3 days (as he initially thought it was GERD). Patient uses a CPAP at night. Patient reports he is chest pain-free at time admission; no SOB at time of admission. Patient reports he took his regular morning medicine today; no recent change in medications. He takes Eliquis for history of A-fib. No PMH of DVT/PE. No sick contacts. Patient does report that he has not been watching his salt intake over the past couple weeks. For instance, he had 2 pieces of pizza and [place] yesterday. While he denies any recent changes in his weight, he does have some swelling in his legs. Patient tries to weigh himself daily, but occasionally misses some days; he reports his weight has been stable. Patient is mildly bradycardic at 59 bpm at time of admission; vitals otherwise stable. ED course: Aspirin 324 mg p.o. x 1 ROS: Patient endorses worsening / progressing SESAY, chest tightness, and tingling in the left hand (intermittently) when he wakes up. Patient denies fever, chills, night-sweats, weight changes, chest pain, SOB at rest, chest palpitations, pleuritic CP, cough, abdominal pain, N/V/D, and changes in urinary/bowel habits. Admission Exam Per Admitting Provider General: no acute distress; pleasant affect; at bedside; non-toxic appearing; cooperative; SpO2 96% on RA HEENT: normocephalic, atraumatic; no scleral icterus; PERRLA; vision and hearing grossly intact Neck: supple; ; trachea midline Skin: warm, dry without signs of tenting; no cyanosis; no rashes, bruising, lesions, or erythema noted CV: chest wall NTP; no rashes or bruising appreciated on the chest wall; RRR; S1/S2 normal; no murmurs/rubs/gallops; pulses intact and symmetric at radial, DP, and PT Lungs: no acute respiratory distress; symmetrical chest wall expansion; clear b reath sounds across all lung schwartz w/o adventitious sounds; no wheezing ABD: Soft, NTP; BS present; no rebound/guarding; moderate abdominal distention secondary to body habitus MSK: no tics or fasciculations; +2 pitting edema around the ankles bilaterally, nonerythematous Neuro: A&Ox3; normal mood and affect; fluent speech; no focal deficits; patient reports sensation is intact and symmetric in the lower extremities bilaterally assessed via light touch Discharge Exam General: Patient is sitting upright in his chair watching TV with his ; no acute distress; pleasant affect; non-toxic appearing; cooperative; SpO2 95% on RA HEENT: normocephalic, atraumatic; no scleral icterus; PERRLA; vision and hearing intact Neck: supple; ; trachea midline Skin: warm, dry without signs of tenting; no cyanosis; no rashes, bruising, lesions, or erythema noted CV: chest wall NTP; no rashes or bruising appreciated on the chest wall; RRR; pulses intact and symmetric at radial, DP, and PT Lungs: no acute respiratory distress; symmetrical chest wall expansion; clear breath sounds across all lung schwartz w/o adventitious sounds; no wheezing ABD: Soft, NTP; BS present; no rebound/guarding; moderate abdominal distention secondary to body habitus MSK: no tics or fasciculations; +1 pitting edema around the ankles bilaterally, nonerythematous (improvement from prior) Neuro: A&Ox3; normal mood and affect; fluent speech; no focal deficits; patient reports sensation is intact and symmetric in the lower extremities bilaterally assessed via light touch Discharge Plan Discharge Items Patient Disposition: Home - Self-Care Reason For Visit: WORSENING SESAY; ?CATH Discharge Diagnosis: NSTEMI Condition on Discharge: Fair Activity: As commented below Activity Comment: Reports no strenuous activity Lifting Comment: No more than two pounds with right hand Non-emergency contact: Primary Care Provider Call non-emergency contact if: you have any medication questions, your symptoms worsen, your pain is not controlled, your pain is worsening and you have a fever Follow-up/Referrals: Nicole Castro MD [Primary Care Provider] - Diet: Carb Consistent or DM2, Heart Healthy and Low Sodium (2gm) Addtl Attending Provider Instructions: You were hospitalized at [facility] from 06/18 - 06/20 for worsening shortness of breath with exertion x 3 weeks. On arrival, you were found to have an elevated "troponin", which is a cardiac enzyme that the heart releases during times of stress. It was thus suspected that your difficulty with breathing was due to a blockage in one of your coronary arteries. Our interventional cardiology team was consulted, and you underwent a procedure known as a cardiac catheterization with Dr. Rowan's on 06/19. One of your coronary arteries was 98% narrowed, and a single drug-eluting stent was placed in that artery. Following the procedure, you reported no episodes of chest pain, and you reported walking with our Physical/Occupational Therapy teams without difficulty. While you still endorsed some mild trouble breathing with exertion, you reported it was significantly better from arrival. Your vitals have remained stable for 24 hours postoperatively. For these reasons, we feel that you are safe to return home at this time with close PCP & cardiology follow-up. Please plan to follow-up with with your PCP in the next 1 to 2 weeks for a transitional care appointment. He also mentioned that you have a follow-up appoint with Dr. Rowan on July 02. While you reported blood in your urine following the procedure, you reported that this resolved prior to discharge, and your hemoglobin levels remained stable.. It is safe for you to resume taking Eliquis upon discharge. New prescriptions upon discharge: - Clopidogrel ("Plavix") 75mg daily Please continue take both Plavix and Eliquis daily. We also recommend that you stop taking your Celebrex until you are seen by your PCP for follow-up. If you develop any new or worsening symptoms, such as chest pain at rest, chest pain with deep breaths, jaw/left shoulder pain, difficulty breathing, numbness or tingling in the right hand, fevers, or chills, please return to the emergency department immediately. It was a pleasure taking care of you. Please reach out any questions or concerns. Sincerely, The Hospital medicine team at [facility] Addtl Aquatics Director Provider Instructions: ACTIVITY RECOMMENDATIONS: Excess manipulation of the right wrist should be avoided for the next 24-48 hours. * No lifting over 2 pounds (approximately a 1/2 gallon of milk) with the utilized arm for 24 hours. * Keep the site of the procedure covered with a bandage for 24 hours. *No strenuous activity until seen by Cardiology for follow-up *You may shower the day after the procedure. Do not take a tub bath or submerge the puncture site in water for the next 3 days. *Do not operate any motorized equipment for 3 days. SPECIAL CARE INSTRUCTIONS: The site may be slightly bruised and sore following your procedure. Should any of the following occur, contact the Dr. who performed your procedure. 1. Redness/inflammation, swelling, chills, or fever, or colored drainage at procedure site within 3-7 days after your procedure. 2. Coldness, discoloration, ongoing numbness, severe pain, or swelling. Expect mild tingling of hand and tenderness at the puncture site for up to three days. If this persists beyond three days, or other symptoms develop, notify the Dr. who performed your procedure. BLEEDING: If the procedure site on your wrist begins to bleed, do not panic 1. Place 1 or 2 fingers firmly just slightly above the insertion site to stop the bleeding. You may be able to feel your pulse as you hold pressure. 2. Lift your finger after 5 minutes to see if the bleeding has stopped. 3. Once the bleeding has stopped, gently wipe the wrist area clean with a bandage. * If the bleeding from your wrist does not stop after 10 minutes, or if there is a large amount of bleeding or spurting, call 911 (do not drive yourself to the hospital). SKIN IRRITATION: * You may experience some redness and/or swelling in the area where radiation was administered. If any skin irritation occurs, please contact your family physician. FOLLOW UP VISIT: Keep any scheduled doctor appointments. Pending Studies at Discharge: No Stand-Alone Forms: My [facility] Medications and DC Order Prescriptions: New clopidogrel 75 mg Tablet 75 mg PO QAM Qty: 30 0RF Rx Instructions: Take 1 tablet daily Continued losartan 25 mg tablet 25 mg PO BID Qty: 180 3RF nitroglycerin 0.4 mg tablet, sublingual 0.4 mg sublingual Q5M PRN (Reason: chest pain) Qty: 30 3RF Rx Instructions: do not exceed 3 doses per episode metformin 500 mg tablet extended release 24 hr 500 mg PO BID Qty: 180 3RF Eliquis 5 mg tablet 5 mg PO BID Qty: 180 3RF glipizide 2.5 mg tablet extended release 24hr 2.5 mg PO BID Qty: 180 3RF tadalafil 20 mg tablet 20 mg PO DAILY PRN (Reason: sexual activity) Qty: 14 0RF Rx Instructions: administer approximately 30min before sexual activity; do not use more than 1 dose per 24hrs (DME) blood-glucose meter [OneTouch Verio Flex Start] Kit See Rx Instructions .ROUTE .MEDSUPPLY Qty: 1 0RF Rx Instructions: Use to test blood sugar once daily (DME) OneTouch Verio test strips Strip See Rx Instructions .ROUTE .MEDSUPPLY Qty: 50 5RF Rx Instructions: 1-2 times per day as needed PreserVision AREDS-2 [id number]-mg capsule 1 tab PO QAM Rx Instructions: administer with meals ferrous sulfate 325 mg (65 mg iron) tablet 325 mg PO DAILY Multivitamin 50 Plus Tablet 1 tab PO DAILY terazosin 5 mg capsule 5 mg PO QPM atorvastatin 80 mg tablet 80 mg PO QPM cholecalciferol (vitamin D3) 25 mcg (1,000 unit) capsule 25 mcg PO QAM empagliflozin 25 mg tablet 25 mg PO QAM cyanocobalamin (vitamin B-12) 1,000 mcg capsule 1,000 mcg PO QAM fluticasone propionate 50 mcg/actuation spray,suspension 2 spray intranasal DAILY PRN (Reason: Congestion) furosemide 40 mg tablet 40 mg PO QAM Held celecoxib 50 mg capsule 50 - 100 mg PO DAILY PRN (Reason: pain) Qty: 180 3RF Hold Instructions: Resume on 06/27/25. Hold until seen by PCP for follow Discharge Orders: Discharge Order (Routine); Ordered 06/20/25 Ordered By: Austin Felipe/Other Patient Handouts: Cardiac Catheterization Dc Admission Data Admit Date/Time: 06/18/25 16:56 Attending Provider: Cain Yeung Admit Provider: Jaycee Flores Primary Care Provider: Nicole Castro Other Providers: Jaycee Flores; Carrillo [facility] Hospital Stay Data Consultations 06/18/25 15:54 ED Decision to Admit Stat 06/18/25 18:15 Consult Cardiology Routine Procedures Performed Operation Date: 06/19/25 13:00 Actual Procedures p Cineradiography w/Routine Exam - Ayan Rowan MD p Cath, Left with Cors and Vent - Ayan Rowan MD p Drug Eluting Stent SGl Vessel - Ayan Rowan MD s IVUS Coronary Single Vessel - Ayan Rowan MD Diagnostic Imagining Performed 06/19/25 12:32 CL IVUS Coronary Single Vessel Routine CL IVUS Coronary Single Vessel Routine 06/19/25 13:00 CL Cath Imgs for PACS use only Routine Pending Results Patient Have Any Pending Studies at Discharge: No Discharge Instructions Given to Patient (Per Discharging Provider) You were hospitalized at [facility] from 06/18 - 06/20 for worsening shortness of breath with exertion x 3 weeks. On arrival, you were found to have an elevated "troponin", which is a cardiac enzyme that the heart releases during times of stress. It was thus suspected that your difficulty with breathing was due to a blockage in one of your coronary arteries. Our interventional cardiology team was consulted, and you underwent a procedure known as a cardiac catheterization with Dr. Rowan's on 06/19. One of your coronary arteries was 98% narrowed, and a single drug-eluting stent was placed in that artery. Following the procedure, you reported no episodes of chest pain, and you reported walking with our Physical/Occupational Therapy teams without difficulty. While you still endorsed some mild trouble breathing with exertion, you reported it was significantly better from arrival. Your vitals have remained stable for 24 hours postoperatively. For these reasons, we feel that you are safe to return home at this time with close PCP & cardiology follow-up. Please plan to follow-up with with your PCP in the next 1 to 2 weeks for a transitional care appointment. He also mentioned that you have a follow-up appoint with Dr. Rowan on July 02. While you reported blood in your urine following the procedure, you reported that this resolved prior to discharge, and your hemoglobin levels remained stable.. It is safe for you to resume taking Eliquis upon discharge. New prescriptions upon discharge: - Clopidogrel ("Plavix") 75mg daily Please continue take both Plavix and Eliquis daily. We also recommend that you stop taking your Celebrex until you are seen by your PCP for follow-up. If you develop any new or worsening symptoms, such as chest pain at rest, chest pain with deep breaths, jaw/left shoulder pain, difficulty breathing, numbness or tingling in the right hand, fevers, or chills, please return to the emergency department immediately. It was a pleasure taking care of you. Please reach out any questions or concerns. Sincerely, The Hospital medicine team at [facility] Total Time Total Time Spent Total Time Spent (In Minutes): 35 [place] [address] INP/OBS DISCH >30 MIN Patient Type Established Medical Decision Making High Complexity Diagnoses NSTEMI (non-ST elevated myocardial infarction) I21.4 Coronary artery disease involving [place] coronary artery of [place] heart without angina pectoris I25.10 Associated angina: without angina Coronary Disease-Associated Artery/Lesion type: [place] artery [place] vs. transplanted heart: [place] heart Obstructive sleep apnea syndrome G47.33 Sleep apnea type: obstructive Type 2 diabetes mellitus with microalbuminuria E11.29; R80.9 HFrEF (heart failure with reduced ejection fraction) I50.20 Hematuria R31.9
[2025-06-20 13:28] VITALS: BP 129/72
--- NOTE | 2025-06-20 23:18 | Cardiology Progress Note ---
Date of Service June 20, 2025 Assessment & Plan (1) NSTEMI (non-ST elevated myocardial infarction): Plan: Acute 98% ostial circumflex post CLARIBEL Widely patent LAD stents. Stable jailed D2, OM2 stenosis and mild to moderate RCA 2. ICMEF 40-45%, history of HFpEF 3. Paroxysmal AF 4. Mild to moderate MR 5. Type 2 diabetes 6. Hematuriahistory of BPH 7. Sinus bradycardiaintermittent Post successful PCI of ostial circumflex stenosis yesterday Remains chest pain-free No signs of heart failure on exam. No apparent access site complications. No recurrent hematuria. From a cardiac standpoint okay with discharge today. Loaded with clopidogrel 600 mg this morning Home on dual therapy with Eliquis, clopidogrel for at least 1 year Continue home losartan and resume SGLT2. Will consider MRA as an outpatient Off beta-elva in the setting of intermittent sinus bradycardia to 40s, retry as able Continue maintenance Lasix 40 mg daily. Continue current statin Has scheduled follow-up with me in 2 weeks Admission and Anticipated Discharge Date Admission Date: June 18, 2025 Subjective Seen this afternoon. Feeling well. Denied any new chest pain. Breathing comfortably. No significant recurrent hematuria. Hemoglobin and serum creatinine stable. Review of Systems Review of Systems: All systems reviewed & are unremarkable except as noted in HPI & below Physical Exam Physical Exam: General: Comfortable HEENT: Sclerae anicteric Lungs: Clear to auscultation bilaterally, no crackles or wheezes Cardiac: Regular rate and rhythm, 2 out of 6 systolic ejection murmur Vascular: Right radial artery access site with no ecchymosis, hematoma. Distal pulse and sensation intact. Abdomen: Soft, nontender Extremities: Well perfused, no peripheral edema Neuro: Nonfocal Psych: Alert orient x3, normal affect and mood Results & Data Vital Signs (Past 12 Hours) Vital Signs Temp Pulse Resp BP BP Pulse Ox 06/20/25 13:23 97.9 F 72 16 115/68 129/72 95 PG Care Time/CCT Total # of Minutes Spent Total Time Spent with Patient: Total time spent is greater than 50% in coordination of care (as documented) at patient's floor/unit and/or counseling patient: Coding Level of Care Code 88563 SUB INP/OBS CARE 2/35MIN Diagnoses NSTEMI (non-ST elevated myocardial infarction) I21.4
[2025-06-21] MEDS ORDERED: CLOPIDOGREL BISULFATE 75 MG TAB PO SCH (09:00)
== END 2025-06-20 14:59 | disposition home or self-care (01) | DRG 321 ==
LOC: ED 13:58 → 4W 16:56 → SUATTDRO 16:56 → 4W 17:51